=== PATIENT | female | born 1965 | race Caucasian/White ===

== ENCOUNTER 2021-01-14 11:23 | Outpatient (REF) | payer OTHER, SELFPAY ==
[2021-01-14 12:37] LABS: Alanine Aminotransferase 14 U/L (0-31); Albumin Level 4.3 g/dL (3.5-5.0); Alkaline Phosphatase 126 U/L (39-117); Anion Gap 13 (12-20); Aspartate Amino Transferase 16 U/L (5-31); Bilirubin Total 0.5 mg/dL (0.0-1.0); Blood Urea Nitrogen 16 mg/dL (9-16); Calcium 9.3 mg/dL (8.4-10.2); Carbon Dioxide 27 mmol/L (22-29); Chloride 104 mmol/L (96-108); Cholesterol 225 mg/dL; Estimated Glomerular Filt Rate 54; Glucose Fasting 101 mg/dL (60-99); HDL Cholesterol 59 mg/dL; LDL Cholesterol Calculated 125 mg/dl; Potassium 5.3 mmol/L (3.3-5.1); Sodium 139 mmol/L (135-145); Total Protein 7.2 g/dL (6.5-8.0); Triglycerides 205 mg/dL
[2021-01-18 04:47] LABS: Vitamin D 25-OH, D2 <4 ng/mL; Vitamin D 25-OH, D3 39 ng/mL; Vitamin D 25-OH, Total 39 ng/mL (30-100)
== END 2021-01-14 11:24 | disposition home or self-care (01) ==
LOC: HO.LAB 11:23
PROVIDERS: PCP Internal Medicine; Visit Provider Internal Medicine
DX: E55.9 Vitamin D deficiency, unspecified (principal); E78.5 Hyperlipidemia, unspecified; I10 Essential (primary) hypertension; R10.11 Right upper quadrant pain
CPT/HCPCS: 36415; 80053; 80061; 82306

== ENCOUNTER 2021-01-30 09:23 | Outpatient (REF) | payer OTHER, SELFPAY ==
--- NOTE | ~2021-01-30 | US_ITS ---
EXAMINATION: US COMPLETE ABDOMEN WITH LIVER ELASTOGRAPHY CLINICAL INFORMATION: Right upper quadrant pain. COMPARISON: Ultrasound abdomen 01/03/2020. TECHNIQUE: Real-time imaging of the abdominal viscera. Noninvasive ultrasound liver fibrosis assessment is performed using Leigha Elast point quantification shear wave elastography (pSWE) with a C5-2 MHz transducer. Multiple elastography samples are obtained. FINDINGS: PANCREAS: The visualized pancreatic head and body are normal in appearance. The remainder of the pancreas is obscured from visualization by the overlying bowel gas. ABDOMINAL AORTA: The proximal, middle, and distal aortic segments are normal in caliber. INFERIOR VENA CAVA: Visualized portions are normal. LIVER: The liver demonstrates normal size, contour and increased echogenicity. No areas of focal fatty sparing No focal lesion or intrahepatic biliary duct dilatation. There is anechoic cyst cyst left hepatic lobe measuring 7.8 6.2 x 7.4 cm. Previously it measured 7.9 x 6.4 x 7.8 cm. The right lobe measures 17.1 cm in length. The left lobe measures 12.5 cm in length. Portal flow is hepatopedal. Shear wave liver elastography median stiffness is 1.27 m/s (reference: normal median stiffness is 1.3 m/s or less). IQR/median stiffness to assess sampling precision is 0.29 (reference: good quality data set is IQR/median stiffness of 0.15 or less). GALLBLADDER: Normal. The gallbladder is physiologically distended without evidence of stones, sludge, polyps, wall thickening or pericholecystic fluid. COMMON BILE DUCT: Normal in caliber measuring 0.6 cm in diameter. RIGHT KIDNEY: Normal. No hydronephrosis. No renal calculi or focal parenchymal lesions. The kidney measures 11.2 cm in maximum dimension. LEFT KIDNEY: Normal. No hydronephrosis. No renal calculi or focal parenchymal lesions. The kidney measures 10.9 cm in maximum dimension. SPLEEN: Normal. The spleen measures 9.8 cm in maximum dimension. FREE FLUID: None. US/US abdomen comp w elastography IMPRESSION: 1. Diffuse hepatic steatosis with focal fatty sparing. There is a left hepatic lobe 7.8 cm cyst, stable. The rest of the abdominal ultrasound is unremarkable. 2. Liver elastography: 1.27 median stiffness. Normal exam. REFERENCE: Society of Radiologists in Ultrasound Liver Stiffness Thresholds (2019): LIVER STIFFNESS THRESHOLDS: *Liver Stiffness equal or less than 1.3 m/s: High probability of being normal. *Liver Stiffness less than 1.7 m/s: In the absence of other known clinical signs, rules out compensated advanced chronic liver disease. *Liver Stiffness 1.7-2.1 m/s: Suggestive of compensated advanced chronic liver disease but need further test for confirmation. *Liver Stiffness over 2.1 m/s: Rules in compensated advanced chronic liver disease. *Liver Stiffness over 2.4 m/s: Suggestive of clinically significant portal hypertension. QUALITY OF DATA SET: *IQR/Median value equal or less than 0.15 implies a quality data set. *IQR/Median value over 0.15 implies a poor quality data set. SIGNIFICANT CHANGE FROM PRIOR EXAM: Significant change if liver stiffness measurement is 10% or greater from prior exam. OTHER CONSIDERATIONS: The stage of liver fibrosis may be overestimated in the setting of acute hepatitis, liver inflammation, elevated liver function tests, hepatic vascular congestion, obstructive cholestasis, non-fasting state, and infiltrative diseases such as amyloidosis and lymphoma. In some patients with NAFLD, the liver stiffness thresholds for compensated advanced chronic liver disease may be lower. In causes other than viral hepatitis and NAFLD, liver stiffness thresholds are not well established.
[2021-01-30 11:28] LABS: Alanine Aminotransferase 11 U/L (0-31); Albumin Level 4.4 g/dL (3.5-5.0); Alkaline Phosphatase 134 U/L (39-117); Anion Gap 13 (12-20); Aspartate Amino Transferase 15 U/L (5-31); Bilirubin Total 0.5 mg/dL (0.0-1.0); Blood Urea Nitrogen 17 mg/dL (9-16); Calcium 9.8 mg/dL (8.4-10.2); Carbon Dioxide 28 mmol/L (22-29); Chloride 105 mmol/L (96-108); Estimated Glomerular Filt Rate 52; Glucose Random 103 mg/dL (60-115); Potassium 5.7 mmol/L (3.3-5.1); Sodium 140 mmol/L (135-145); Total Protein 7.6 g/dL (6.5-8.0)
== END 2021-01-30 09:24 | disposition home or self-care (01) ==
LOC: HO.US 09:23
PROVIDERS: PCP Internal Medicine; Visit Provider Internal Medicine
DX: R10.11 Right upper quadrant pain (principal); E87.5 Hyperkalemia
CPT/HCPCS: 36415; 76705; 76981; 80053

== ENCOUNTER → 2021-01-31 12:51 | Outpatient (REF) | payer OTHER, SELFPAY ==
--- NOTE | 2021-01-31 12:56 | ECG_ITS ---
Test Reason : HYPERKALEMIA Blood Pressure : / mmHG Vent. Rate : 076 BPM Atrial Rate : 076 BPM P-R Int : 162 ms QRS Dur : 082 ms QT Int : 404 ms P-R-T Axes : 007 044 012 degrees QTc Int : 454 ms Normal sinus rhythm Normal ECG When compared with ECG of 14-MAR-2020 12:28, No significant change was found Referred By: Tasha Varghese Electronically Signed By:EDDIE ALSTON
== END ==
LOC: HO.CARD 12:51
PROVIDERS: PCP Internal Medicine; Visit Provider Internal Medicine
DX: E87.5 Hyperkalemia (principal)
CPT/HCPCS: 93005

== ENCOUNTER 2021-07-14 15:02 | Outpatient (REF) | payer OTHER, SELFPAY | END 2021-07-14 15:03 | disposition home or self-care (01) | LOC: HO.LAB 15:02 | PROVIDERS: PCP Internal Medicine; Visit Provider Internal Medicine | DX: Z20.822 Contact with and (suspected) exposure to COVID-19 (principal) | CPT/HCPCS: C9803; U0003; U0005 ==

== ENCOUNTER 2021-09-27 10:19 | Outpatient (REF) | payer OTHER, SELFPAY ==
[2021-09-27 11:35] LABS: Alanine Aminotransferase 14 U/L (0-31); Albumin Level 4.2 g/dL (3.5-5.0); Alkaline Phosphatase 135 U/L (39-117); Anion Gap 13 (12-20); Aspartate Amino Transferase 17 U/L (5-31); Bilirubin Direct 0.2 mg/dL (0.0-0.5); Bilirubin Total 0.5 mg/dL (0.0-1.0); Blood Urea Nitrogen 20 mg/dL (9-16); Calcium 9.4 mg/dL (8.4-10.2); Carbon Dioxide 26 mmol/L (22-29); Chloride 105 mmol/L (96-108); Estimated Glomerular Filt Rate 50; Glucose Random 153 mg/dL (60-115); Potassium 4.8 mmol/L (3.3-5.1); Sodium 139 mmol/L (135-145); Total Protein 7.2 g/dL (6.5-8.0)
== END 2021-09-27 10:20 | disposition home or self-care (01) ==
LOC: HO.LAB 10:19
PROVIDERS: PCP Internal Medicine; Visit Provider Physician Assistant
DX: E87.5 Hyperkalemia (principal)
CPT/HCPCS: 36415; 80048; 80076

== ENCOUNTER → 2021-09-29 09:50 | Outpatient (BNVA) | payer OTHER, SELFPAY | PROVIDERS: PCP Internal Medicine; Referring Provider Internal Medicine; Visit Provider Internal Medicine Gastroenterology ==

== ENCOUNTER 2021-11-01 09:41 | Emergency (ER) | payer OTHER, SELFPAY ==
--- NOTE | ~2021-11-01 | CT_ITS ---
CT HEAD WITHOUT CONTRAST CLINICAL INFORMATION: Headache. Photophobia. COMPARISON: Head CT 07/17/2012. TECHNIQUE: Contiguous axial imaging was performed from the skull base to vertex without intravenous administration of contrast. This CT examination was performed using dose optimization techniques as appropriate, variously including the following: *Automated exposure control *Adjustment of mA and/or kV according to patient size (this includes techniques or standardized protocols for targeted exams where dose is matched to indication/reason for exam; i.e. extremities or head) *Use of iterative reconstruction technique FINDINGS: Prominent extra-axial spaces within the high frontal vertex unchanged. There is a stable ossification along the inner table of the anterior right frontal convexity that may reflect a small osteoma or meningioma. There is no intracranial hemorrhage, hydrocephalus, extra-axial surface collection, midline shift, or other herniation pattern. Duncan to white matter differentiation is diffusely maintained without evidence of an evolved acute territorial infarct. The basilar cisterns are preserved. No significant soft tissue abnormality. No acute osseous abnormality. The paranasal sinuses and the mastoid air cells are well aerated. CT/CT head/brain wo con IMPRESSION: No acute intracranial abnormality. There is a stable ossification along the inner table of the anterior right frontal convexity that may reflect a small osteoma or meningioma.
[2021-11-01 10:02] VITALS: BP 155/72; PULSE 75; RESP 18; TEMP 36.5; O2SAT 99; BMI 33.3
[2021-11-01 10:23] LABS: COVID-19 Test Negative (Negative); IDNOW Serial# 9DD0AD1C
--- NOTE | 2021-11-01 10:59 | ED_ITS ---
HPI - Nausea/Vomiting/Diarrhea General Chief complaint: Upper Respiratory Symptoms Stated complaint: diarrhea body aches headache sore throat Time Seen by Provider: 11/01/21 10:31 Source: patient Mode of arrival: ambulatory Limitations: no limitations History of Present Illness HPI Narrative: 55-year-old female past medical history significant for anxiety, hypertension and insomnia presenting to the emergency department with complaints of nausea, headache and light sensitivity X4 days. Patient tells me that she decided to come in today because she is worried that she is still very nauseous, and she still has a headache. Patient tells me that she usually does not get headaches, and this is her 1st headache. She describes the pain as constant localized to the posterior aspect of the head with associated photophobia and intermittent dizziness. Patient tells me this is not normal for her. 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 She reports vomiting and diarrhea earlier this week. denies weakness, fevers, chills, vomiting, chest pain, shortness of breath. Patient is not currently dizzy. MD elicited complaint: nausea, diarrhea and other (Headache) Onset (ago): day(s) (4) Description of vomiting: food contents Description of diarrhea: loose Associated nausea: Yes Associated abdominal pain: No Location of pain: none Exacerbating factors: none Relieving factors: none Context: sick contacts Associated symptoms: headaches, malaise and nausea/vomiting Related Data Previous Rx's Medication Instructions Recorded escitalopram oxalate 5 mg tablet 5 mg PO DAILY 30 Days #30 tab 11/04/20 atenolol 25 mg tablet 25 mg PO BID 90 Days #180 tab 01/01/21 amitriptyline 25 mg tablet 25 mg PO DAILY 90 Days #90 tab 09/17/21 blood pressure test kit-large #1 ea 09/18/21 ondansetron 4 mg disintegrating 4 mg PO ONCE PRN #10 tab 11/01/21 tablet Allergies Allergy/AdvReac Type Severity Reaction Status Date / Time No Known Allergies Allergy Unknown Verified 11/01/21 10:02 [No Known Allergies*] Review of Systems Review of Systems: Constitutional : No Weight loss, No Fever, No Chills, + Fatigue, + Malaise ENT/Mouth : No sore throat, No Rhinorrhea Eyes: No Eye Pain, No Swelling, No Redness Cardiovascular : No Chest Pain, No SOB, No Dyspnea on Exertion, No Orthopnea, No Edema, No Palpitations Respiratory : No Cough, No Sputum, No Wheezing Gastrointestinal : + Nausea, No Vomiting, + Diarrhea, No Constipation, No abdominal Pain, No Hematochezia, No Melena Genitourinary : No Dysuria, No Urinary Frequency, No Hematuria, Musculoskeletal : No joint pain, No Myalgias, No Joint Swelling Skin : No Skin Lesions, No rash Neuro : No Weakness, No Numbness, No Dizziness, + Headache Psych : No Anxiety/Panic, No Depression All other systems reviewed and are negative Gastrointestinal: Gastrointestinal: Reports nausea PMFSH Past Medical History Attestation statement: The following information was validated with the patient. Source: old records reviewed and nursing notes reviewed Medical History Anxiety Essential hypertension Hyperkalemia Insomnia Liver cyst Right upper quadrant abdominal pain Surgical History No pertinent past surgical history Family History Family History Father No problems noted. Mother High cholesterol Family/Other FH: mental illness Social History Social History Housing: House Alcohol intake: never Patient Tobacco Use Status: Never used Tobacco Tobacco use type: Cigarette e-Cigarette/Vaping Use: Never Used Second Hand Smoke Exposure: No Use of substances other than those prescribed or required for medical reasons: No Advance Directives: No Advance Directives Information Provided: Yes Patient : No Current occupational status: employed Physical Exam Vital Signs: Vital Signs: Last Vital Signs Temp 97.7 F 11/01/21 10:02 Pulse 75 11/01/21 10:02 Resp 18 11/01/21 10:02 BP 155/72 H 11/01/21 10:02 Pulse Ox 99 11/01/21 10:02 BMI result Body Mass Index 33.3 VSS Appearance: Alert.? Oriented X3.? No acute distress.? Head: Normocephalic, atraumatic, no step-offs or deformities Eyes: Pupils equal, round and reactive to light.? ENT: Pharynx normal.? Neck: Normal inspection.? Neck supple.? CVS: Normal heart rate and rhythm.? Pulses normal.? Respiratory: No respiratory distress.? Breath sounds normal.? Abdomen: Soft and nontender.? Skin: Skin warm and dry.? Normal skin color.? Normal skin turgor.? Extremities: No lower extremity edema.? No calf ttp. 5/5 strength to bilateral upper and lower extremities Back: No midline tenderness, no C-spine tenderness, full range of motion, no CVA tenderness bilaterally Neuro: Oriented X 3.? No motor deficit.? No sensory deficit. 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 Patient ambulating with a steady gait. Course Reevaluation(s) Reevaluation #1: No leukocytosis, no anemia. No evident electrolyte abnormalities. Patient is COVID negative. CT of the head shows no acute intra cranial abnormalities. It shows a stable ossification along the inner table of the anterior right frontal convexity that could reflect a small osteoma or meningioma. I have provided patient a copy of the CT reading. I have advised her to follow-up with her primary care provider. Patient is safe for discharge home this is likely viral gastroenteritis, with a headache. Comfortable with discharge home Time: 12:47 MDM - Nausea/Vomiting/Diarrhea MDM Narrative Medical decision making narrative: 1100 55 yo F pmhx HTN, anxiety and insomnia presents to ED with complaints of nausea, posterior headache w/ photophobia X4 days. Patient also reports recent COVID contacts and wanted to get COVID tested. Patient's main concern today is the headache that has not gone away, as she never gets headaches. Upon physical examination patient appears well, no acute distress, she reports some discomfort with the lights. S1-S2 appreciated free of murmurs. Lungs are clear. Abdomen soft nontender nondistended. Pupils equal round and reactive to light, extraocular movements intact. No focal neuro deficits. normal [id number], [id number], and normal gait noted. At this time posterior stroke is unlikely, as patient has a normal neuro exam. Patient is not currently dizzy however she describes her dizziness as the room spinning which is likely intermittent vertigo. Patient's symptoms are likely viral gastroenteritis. However I will rule out electrolyte abnormalities, infection, and ICH however unlikely. Medical Records Attestation: I reviewed the patient's medical records. Lab Data Attestation: I reviewed the patient's lab results. Result diagrams: 11/01/21 11:23 11/01/21 11:23 Labs: Lab Results 11/01/21 11/01/21 11/01/21 Range/Units 09:57 11:17 11:23 WBC 6.7 (4.8-10.8) X10*3/uL RBC 4.74 (4.20-5.50) X10*6/uL Hgb 14.6 (12.0-16.0) g/dl Hct 43.3 (37.0-47.0) % MCV 91.4 (80.0-98.0) fL MCH 30.8 (27.0-33.0) pg MCHC 33.7 (31.0-35.0) g/dl RDW 13.4 (11.0-16.0) % Plt Count 243 (160-400) X10*3/uL MPV 10.3 (9.4-12.3) fL Immature Gran % (Auto) 0.1 (0.0-0.4) % Neut % (Auto) 56.2 (45-73) % Lymph % (Auto) 33.2 (20-40) % Gosper % (Auto) 7.9 (2-11) % Eos % (Auto) 1.9 (0-4) % Baso % (Auto) 0.7 (0-2) % Lymph # (Auto) 2.2 (1.2-4.9) X10*3/uL Gosper # (Auto) 0.5 (0.1-1.2) X10*3/uL Eos # (Auto) 0.1 (0.0-0.4) X10*3/uL Baso # (Auto) 0.1 (0.0-0.2) X10*3/uL Abs Immat Gran (auto) 0.01 (0.00-0.03) X10*3/uL Absolute Neuts (auto) 3.8 (2.0-8.3) x10*3/uL Absolute Nucleated RBC 0.000 (0.0-0.012) X10*3/uL Nucleated RBC % (auto) 0.0 (0.0-0.2) /100WBC Sodium (135-145) mmol/L Potassium (3.3-5.1) mmol/L Chloride (96-108) mmol/L Carbon Dioxide (22-29) mmol/L Anion Gap (12-20) BUN (9-16) mg/dL Creatinine (0.5-1.4) mg/dL Estim Creat Clear Calc Estimated GFR Random Glucose (60-115) mg/dL Calcium (8.4-10.2) mg/dL Urine Test NEGATIVE (NEGATIVE) COVID-19 (LEIGH) Negative (Negative) COVID-19 Clin Com See Note 11/01/21 Range/Units 11:23 WBC (4.8-10.8) X10*3/uL RBC (4.20-5.50) X10*6/uL Hgb (12.0-16.0) g/dl Hct (37.0-47.0) % MCV (80.0-98.0) fL MCH (27.0-33.0) pg MCHC (31.0-35.0) g/dl RDW (11.0-16.0) % Plt Count (160-400) X10*3/uL MPV (9.4-12.3) fL Immature Gran % (Auto) (0.0-0.4) % Neut % (Auto) (45-73) % Lymph % (Auto) (20-40) % Gosper % (Auto) (2-11) % Eos % (Auto) (0-4) % Baso % (Auto) (0-2) % Lymph # (Auto) (1.2-4.9) X10*3/uL Gosper # (Auto) (0.1-1.2) X10*3/uL Eos # (Auto) (0.0-0.4) X10*3/uL Baso # (Auto) (0.0-0.2) X10*3/uL Abs Immat Gran (auto) (0.00-0.03) X10*3/uL Absolute Neuts (auto) (2.0-8.3) x10*3/uL Absolute Nucleated RBC (0.0-0.012) X10*3/uL Nucleated RBC % (auto) (0.0-0.2) /100WBC Sodium 138 (135-145) mmol/L Potassium 4.5 (3.3-5.1) mmol/L Chloride 104 (96-108) mmol/L Carbon Dioxide 27 (22-29) mmol/L Anion Gap 12 (12-20) BUN 18 H (9-16) mg/dL Creatinine 0.93 (0.5-1.4) mg/dL Estim Creat Clear Calc 76.9 Estimated GFR > 60 Random Glucose 95 (60-115) mg/dL Calcium 9.9 (8.4-10.2) mg/dL Urine Test (NEGATIVE) COVID-19 (LEIGH) (Negative) COVID-19 Clin Com Imaging Data CT scan - head: Attestation: I personally reviewed and interpreted this imaging study as follows: Radiologist's impression: FINDINGS: Prominent extra-axial spaces within the high frontal vertex unchanged. There is a stable ossification along the inner table of the anterior right frontal convexity that may reflect a small osteoma or meningioma. There is no intracranial hemorrhage, hydrocephalus, extra-axial surface collection, midline shift, or other herniation pattern. Duncan to white matter differentiation is diffusely maintained without evidence of an evolved acute territorial infarct. The basilar cisterns are preserved. No significant soft tissue abnormality. No acute osseous abnormality. The paranasal sinuses and the mastoid air cells are well aerated. CT/CT head/brain wo con IMPRESSION: No acute intracranial abnormality. There is a stable ossification along the inner table of the anterior right frontal convexity that may reflect a small osteoma or meningioma. Critical Care Time Critical Care Time Critical Care Time: No Discharge Plan Discharge Clinical Impression: Gastroenteritis, Nausea & vomiting, Headache Patient Disposition: Home, Self-Care Instructions: Gastroenteritis (ED), Acute Headache (ED), Acute Nausea and Vomiting (ED), Acute Diarrhea (ED) Additional Instructions: Take your medications as prescribed. If you are going to take Reglan ensure you are taking it with Benadryl. You tested negative for COVID-19 today ( 11/01/2021) Your CT scan looked good without signs of bleed or stroke. It did show a stable ossification that could reflect a small osteoma or meningioma I recommend you follow up with your PCP Drink pleanty of fluids Follow-up with your primary care provider this week. Return to the emergency department with new or worsening symptoms. In case of emergency call 911 Prescriptions: New ondansetron 4 mg tablet,disintegrating 4 mg PO ONCE PRN (Reason: nausea and vomiting) Qty: 10 RF: 0 No Action escitalopram oxalate 5 mg tablet 5 mg PO DAILY 30 Days Qty: 30 RF: 11 amitriptyline 25 mg tablet 25 mg PO DAILY 90 Days Qty: 90 RF: 3 atenolol 25 mg tablet 25 mg PO BID 90 Days Qty: 180 RF: 3 (DME) blood pressure test kit-large Kit See Rx Instructions .Route Qty: 1 RF: 0 Referrals: Tasha Harris MD [Primary Care Provider] - 2 days Stand Alone Forms: Work/School Release
[2021-11-01 11:28] LABS: MANUAL DIFF FLAG NO
[2021-11-01 11:41] LABS: Basophils Absolute Auto 0.1 X10*3/uL (0.0-0.2); Basophils Percent Auto 0.7 % (0-2); Eosinophils Absolute Auto 0.1 X10*3/uL (0.0-0.4); Eosinophils Percent Auto 1.9 % (0-4); Hematocrit 43.3 % (37.0-47.0); Hemoglobin 14.6 g/dl (12.0-16.0); Imm Gran Abs Auto 0.01 X10*3/uL (0.00-0.03); Imm Gran Pct Auto 0.1 % (0.0-0.4); Lymphocytes Absolute Auto 2.2 X10*3/uL (1.2-4.9); Lymphocytes Percent Auto 33.2 % (20-40); Mean Corpuscular HGB Conc 33.7 g/dl (31.0-35.0); Mean Corpuscular Hemoglobin 30.8 pg (27.0-33.0); Mean Corpuscular Volume 91.4 fL (80.0-98.0); Mean Platelet Volume 10.3 fL (9.4-12.3); Monocytes Absolute Auto 0.5 X10*3/uL (0.1-1.2); Monocytes Percent Auto 7.9 % (2-11); Neutrophils Absolute Auto 3.8 x10*3/uL (2.0-8.3); Neutrophils Percent Auto 56.2 % (45-73); Platelet Count 243 X10*3/uL (160-400); Red Blood Count 4.74 X10*6/uL (4.20-5.50); Red Cell Distribution Width 13.4 % (11.0-16.0); White Blood Count 6.7 X10*3/uL (4.8-10.8)
[2021-11-01 11:53] LABS: UPreg QC Valid YES; Urine Pregnancy NEGATIVE (NEGATIVE)
[2021-11-01 12:03] LABS: Anion Gap 12 (12-20); Blood Urea Nitrogen 18 mg/dL (9-16); Calcium 9.9 mg/dL (8.4-10.2); Carbon Dioxide 27 mmol/L (22-29); Chloride 104 mmol/L (96-108); Creatinine Clr Calc Pharmacy 76.9; Estimated Glomerular Filt Rate > 60; Glucose Random 95 mg/dL (60-115); Potassium 4.5 mmol/L (3.3-5.1); Sodium 138 mmol/L (135-145)
[2021-11-01] MEDS: Ondansetron ODT 4 MG TAB.RAPDIS TRANSLINGU (12:13)
[2021-11-01] MEDS: Acetaminophen 325 MG TABLET 650 MG PO (12:14)
[2021-11-01 13:00] VITALS: BP 136/69; PULSE 65; RESP 18; O2SAT 98
== END 2021-11-01 13:03 | disposition home or self-care (01) ==
PROVIDERS: Physician Assistant; Emergency Provider Emergency Medicine; PCP Internal Medicine
DX: K52.9 Noninfective gastroenteritis and colitis, unspecified (principal); Z20.822 Contact with and (suspected) exposure to COVID-19; R11.2 Nausea with vomiting, unspecified; R51.9 Headache, unspecified
CPT/HCPCS: 36415; 70450; 80048; 81025; 85025; 87635; 99284

== ENCOUNTER 2021-12-04 11:15 | Outpatient (REF) | payer OTHER, SELFPAY ==
--- NOTE | ~2021-12-04 | MR_ITS ---
EXAMINATION: MR BRAIN WITHOUT AND WITH CONTRAST CLINICAL INFORMATION: Headache. Photophobia. Lesion on head CT. COMPARISON: CT head from 11/01/2021. TECHNIQUE: MRI of the brain was obtained using routine sequences without and following the administration of 10 mL of Gadavist intravenous contrast. FINDINGS: No focal restricted diffusion is demonstrated to suggest acute or subacute cerebral ischemia. No evidence of acute hemorrhagic products on heme-sensitive imaging. Punctate focus of susceptibility artifact in the lateral aspect of the right parietal lobe consistent with petechial microhemorrhage. Normal parenchymal signal characteristics. The ventricles are normal in morphology and size. No abnormal mass effect. No midline shift. Normal appearance of the pituitary gland. The suprasellar cistern remains widely patent. Normal positioning of the cerebellar tonsils. Normal arterial and venous vascular flow voids are present. No enhancement associated with the calcified 1 cm lesion along the right anterior vertex. No abnormal contrast enhancement. Normal, homogeneous marrow signal. Mild to moderate mucosal thickening of the paranasal sinuses. Moderate rightward nasal septal deviation. No signal abnormalities within the mastoids. No demonstrated abnormalities of the orbits on limited evaluation. MR/MR head/brain wo/w con IMPRESSION: 1. No acute intracranial abnormalities. No abnormal intracranial enhancement. 2. A chronic 1 cm calcified lesion along the right anterior vertex demonstrates no enhancement on this exam.
== END 2021-12-04 11:16 | disposition home or self-care (01) ==
LOC: HO.MRI 11:15
PROVIDERS: PCP Internal Medicine; Visit Provider Internal Medicine
DX: G93.9 Disorder of brain, unspecified (principal); R90.89 Other abnormal findings on diagnostic imaging of central nervous system
CPT/HCPCS: 70553; A9585

== ENCOUNTER 2022-04-28 09:05 | Outpatient (REF) | payer OTHER, SELFPAY ==
[2022-04-28 10:04] LABS: Hematocrit 43.9 % (37.0-47.0); Hemoglobin 14.7 g/dl (12.0-16.0); Mean Corpuscular HGB Conc 33.5 g/dl (31.0-35.0); Mean Corpuscular Hemoglobin 30.4 pg (27.0-33.0); Mean Corpuscular Volume 90.7 fL (80.0-98.0); Mean Platelet Volume 10.1 fL (9.4-12.3); Platelet Count 220 X10*3/uL (160-400); Red Blood Count 4.84 X10*6/uL (4.20-5.50); Red Cell Distribution Width 13.7 % (11.0-16.0); White Blood Count 5.8 X10*3/uL (4.8-10.8)
[2022-04-28 10:14] LABS: INTERNATIONAL NORM RATIO 0.9 (0.9-1.1); Prothrombin Time 10.4 SEC (9.9-13.0)
[2022-04-28 10:59] LABS: Alanine Aminotransferase 18 U/L (0-31); Albumin Level 4.2 g/dL (3.5-5.0); Alkaline Phosphatase 119 U/L (39-117); Anion Gap 14 (12-20); Aspartate Amino Transferase 21 U/L (5-31); Bilirubin Direct 0.3 mg/dL (0.0-0.5); Bilirubin Total 0.9 mg/dL (0.0-1.0); Blood Urea Nitrogen 20 mg/dL (9-16); Calcium 9.9 mg/dL (8.4-10.2); Carbon Dioxide 25 mmol/L (22-29); Chloride 105 mmol/L (96-108); Cholesterol 219 mg/dL; Estimated Glomerular Filt Rate 55; Gamma Glutamyl Transpeptidase 26 U/L (7-33); Glucose Fasting 109 mg/dL (60-99); HDL Cholesterol 65 mg/dL; LDL Cholesterol Calculated 122 mg/dl; Potassium 4.7 mmol/L (3.3-5.1); Sodium 139 mmol/L (135-145); Total Protein 7.2 g/dL (6.5-8.0); Triglycerides 162 mg/dL
[2022-05-03 22:02] LABS: Alk.Phos Iso. Macrohepatic 0 % (<=0); Alk.Phos Isoenzymes Bone 31 % (28-66); Alk.Phos Isoenzymes Intest 16 % (1-24); Alk.Phos Isoenzymes Liver 53 % (25-69); Alk.Phos Isoenzymes Placental 0 % (<=0); Alk.Phos Isoenzymes Total 108 U/L (37-153)
[2022-05-05 07:46] LABS: Mitochondrial Antibodies NEGATIVE (NEGATIVE)
== END 2022-04-28 09:06 | disposition home or self-care (01) ==
LOC: HO.LAB 09:05
PROVIDERS: Internal Medicine Gastroenterology; PCP Internal Medicine; Visit Provider Internal Medicine
DX: R79.89 Other specified abnormal findings of blood chemistry (principal); I10 Essential (primary) hypertension; E78.5 Hyperlipidemia, unspecified
CPT/HCPCS: 36415; 80053; 80061; 80076; 82248; 82977; 84080; 85027; 85610; 86255; 86256

== ENCOUNTER 2022-05-01 16:11 | Emergency (ER) | payer OTHER, SELFPAY ==
--- NOTE | ~2022-05-01 | US_ITS ---
EXAMINATION: US VENOUS ULTRASOUND WITH DOPPLER LOWER EXTREMITY, LEFT CLINICAL INFORMATION: Left lower extremity pain. COMPARISON: None TECHNIQUE: Ultrasound of the deep veins is performed from the hip to the calf with compression sonography and color and pulse Doppler assessment. Spectral analysis with color-flow imaging is performed. FINDINGS: There is normal venous compression and respiratory variation and augmented flow. The visualized common femoral vein, superficial femoral vein, profunda femoral vein, popliteal vein, and the trifurcation region shows no evidence of deep venous thrombosis. There is no significant popliteal fossa cyst. If the patient's symptoms persist, followup ultrasound in 5 days 7 days might be of value to exclude proximal propagation from a non-visualized calf vein. US/US venous duplex LE LT IMPRESSION: No DVT demonstrated in the left lower extremity.
[2022-05-01 16:15] VITALS: BP 140/70; PULSE 94; RESP 15; TEMP 36.1; O2SAT 96; BMI 35.2
[2022-05-01 16:26] LABS: MANUAL DIFF FLAG NO
[2022-05-01 16:27] LABS: Basophils Percent Auto 0.3 % (0-2); Eosinophils Absolute Auto 0.1 X10*3/uL (0.0-0.4); Eosinophils Percent Auto 1.2 % (0-4); Hematocrit 39.4 % (37.0-47.0); Hemoglobin 13.4 g/dl (12.0-16.0); Imm Gran Abs Auto 0.03 X10*3/uL (0.00-0.03); Imm Gran Pct Auto 0.3 % (0.0-0.4); Lymphocytes Absolute Auto 2.9 X10*3/uL (1.2-4.9); Mean Corpuscular Hemoglobin 30.7 pg (27.0-33.0); Mean Corpuscular Volume 90.4 fL (80.0-98.0); Mean Platelet Volume 9.9 fL (9.4-12.3); Monocytes Absolute Auto 0.6 X10*3/uL (0.1-1.2); Monocytes Percent Auto 6.4 % (2-11); Neutrophils Absolute Auto 5.3 x10*3/uL (2.0-8.3); Neutrophils Percent Auto 59.8 % (45-73); Platelet Count 235 X10*3/uL (160-400); Red Blood Count 4.36 X10*6/uL (4.20-5.50); Red Cell Distribution Width 13.7 % (11.0-16.0); White Blood Count 8.9 X10*3/uL (4.8-10.8)
[2022-05-01 16:53] LABS: Alanine Aminotransferase 18 U/L (0-31); Albumin Level 4.2 g/dL (3.5-5.0); Alkaline Phosphatase 138 U/L (39-117); Anion Gap 14 (12-20); Aspartate Amino Transferase 17 U/L (5-31); Bilirubin Total 0.5 mg/dL (0.0-1.0); Blood Urea Nitrogen 17 mg/dL (9-16); Calcium 9.7 mg/dL (8.4-10.2); Carbon Dioxide 25 mmol/L (22-29); Chloride 104 mmol/L (96-108); Creatinine Clr Calc Pharmacy 66.2; Estimated Glomerular Filt Rate 52; Glucose Random 98 mg/dL (60-115); Potassium 4.6 mmol/L (3.3-5.1); Sodium 138 mmol/L (135-145); Total Protein 7.2 g/dL (6.5-8.0)
--- NOTE | 2022-05-01 16:58 | ED_ITS ---
HPI - Extremity Injury (Lower) General Chief Complaint: Extremity Injury, Lower Stated Complaint: Blood clot? Time Seen by Provider: 05/01/22 16:22 Source: patient Mode of arrival: ambulatory Limitations: no limitations History of Present Illness HPI Narrative: 56-year-old female history of DVT presents to the emergency department with a sore left foot and sore left calf. Patient tells me that this has been going on for a week. She tells me she noticed this after she got of the car from work about a week ago. Denies long travel, not on anticoagulation, not on control or hormone replacement, patient does not smoke. Patient tells me that her previous DVT felt just like this 1 and was also in the left lower extremity. She denies shortness of breath, chest pain, fevers, chills, nausea, vomiting, abdominal pain, weakness, headache, dizziness. She has no known hypercoagulable disorders. Onset (ago): week(s) (1) Severity: mild Relieving factors: nothing Exacerbating factors: nothing Other symptoms: none Related Data Previous Rx's Medication Instructions Recorded blood pressure test kit-large #1 ea 09/18/21 amitriptyline 25 mg tablet 25 mg PO DAILY 90 Days #90 tab 11/28/21 atenolol 25 mg tablet 25 mg PO BID 90 Days #180 tab 02/11/22 doxycycline hyclate 100 mg tablet 100 mg PO BID 30 Days #60 tab 04/06/22 escitalopram oxalate 10 mg tablet 10 mg PO DAILY 90 Days #90 tab 04/06/22 Allergies Allergy/AdvReac Type Severity Reaction Status Date / Time No Known Allergies Allergy Unknown Verified 04/06/22 17:01 [No Known Allergies*] Review of Systems Review of Systems: Constitutional : No Weight loss, No Fever, No Chills, No Fatigue, No Malaise ENT/Mouth : No sore throat, No Rhinorrhea Eyes: No Eye Pain, No Swelling, No Redness Cardiovascular : No Chest Pain, No SOB, No Dyspnea on Exertion, No Orthopnea, No Edema, No Palpitations Respiratory : No Cough, No Sputum, No Wheezing Gastrointestinal : No Nausea, No Vomiting, No Diarrhea, No Constipation, No abdominal Pain, No Hematochezia, No Melena Genitourinary : No Dysuria, No Urinary Frequency, No Hematuria, Musculoskeletal : No joint pain, No Myalgias, No Joint Swelling, + leg pain left Skin : No Skin Lesions, No rash Neuro : No Weakness, No Numbness, No Dizziness, No Headache Psych : No Anxiety/Panic, No Depression All other systems reviewed and are negative Yes all other systems are reviewed and are negative [facility] Past Medical History Attestation statement: The following information was validated with the patient. Source: old records reviewed and nursing notes reviewed Medical History Abnormal brain MRI Acne vulgaris Anxiety Brain lesion Essential hypertension Hyperkalemia Insomnia Liver cyst Mild recurrent major depression Mixed hyperlipidemia Obesity (BMI 35.0-39.9 without comorbidity) Right upper quadrant abdominal pain Skin lesion Surgical History No pertinent past surgical history Family History Family History Father No problems noted. Mother High cholesterol Family/Other FH: mental illness Social History Social History Housing: House Alcohol intake: current Alcohol intake frequency: a few times a month Alcohol type: hard liquor Patient Tobacco Use Status: Never used Tobacco e-Cigarette/Vaping Use: Never Used Second Hand Smoke Exposure: No Advance Directives: No Advance Directives Information Provided: No service: No Current occupational status: employed Cognitive needs: No Hearing needs: No Vision needs: Yes Physical Exam Vital Signs: Vital Signs: Last Vital Signs Temp 97.0 F 05/01/22 16:15 Pulse 94 05/01/22 16:15 Resp 15 05/01/22 16:15 BP 140/70 H 05/01/22 16:15 Pulse Ox 96 05/01/22 16:15 BMI result Body Mass Index 35.2 VSS Appearance: Alert.? Oriented X3.? No acute distress.? Head: Normocephalic, atraumatic, no step-offs or deformities Eyes: Pupils equal, round and reactive to light.? ENT: Pharynx normal.? Neck: Normal inspection.? Neck supple.? CVS: Normal heart rate and rhythm.? Pulses normal.? Respiratory: No respiratory distress.? Breath sounds normal.? Abdomen: Soft and nontender.? Skin: Skin warm and dry.? Normal skin color.? Normal skin turgor.? Extremities: No lower extremity edema.? + calf ttp on left + gerry on left negative on right. 5/5 strength to bilateral upper and lower extremities Back: No midline tenderness, no C-spine tenderness, full range of motion, no CVA tenderness bilaterally Neuro: Oriented X 3.? No motor deficit.? No sensory deficit. CN 2-12 intact Course Reevaluation(s) Reevaluation #1: CBC within normal limits. Chemistry with no acute electrolyte abnormalities requiring intervention. Venous duplex of the left lower extremity with no acute findings. Plan at this time is to discharge patient home with strict return precautions. Advised patient that her DVT study today was negative however if symptoms persist she should follow-up with an ultrasound in 5-7 days. Again she tells me that she is not having chest pain or shortness of breath. For this reason very low suspicion for PE, patient has stable vital signs no tachypnea, hypoxia or tachycardia. At this time I feel comfortable discharge home with prompt PCP follow-up and follow-up ultrasound as needed. Time: 17:58 MDM - Extremity Injury (Lower) MDM Narrative Medical decision making narrative: 1700 56-year-old female presents with a left lower extremity pain history of DVT not on anticoagulation. Physical exam significant for calf tenderness to palpation on the left, positive Homans sign on left, negative on the right. 2+ dorsalis pedis, posterior tibialis and popliteal pulses equal bilateral. Sensory and motor intact. No lower extremity edema noted. Wells Score- 2 Moderate risk for DVT. Plan at this time is to rule out DVT. Will order at ultrasound venous duplex of the lower extremity left. Medical Records Attestation: I reviewed the patient's medical records. Lab Data Attestation: I reviewed the patient's lab results. Result diagrams: 05/01/22 16:21 05/01/22 16:21 Labs: Lab Results 05/01/22 05/01/22 Range/Units 16:21 16:21 WBC 8.9 (4.8-10.8) X10*3/uL RBC 4.36 (4.20-5.50) X10*6/uL Hgb 13.4 (12.0-16.0) g/dl Hct 39.4 (37.0-47.0) % MCV 90.4 (80.0-98.0) fL MCH 30.7 (27.0-33.0) pg MCHC 34.0 (31.0-35.0) g/dl RDW 13.7 (11.0-16.0) % Plt Count 235 (160-400) X10*3/uL MPV 9.9 (9.4-12.3) fL Immature Gran % (Auto) 0.3 (0.0-0.4) % Neut % (Auto) 59.8 (45-73) % Lymph % (Auto) 32.0 (20-40) % Kings % (Auto) 6.4 (2-11) % Eos % (Auto) 1.2 (0-4) % Baso % (Auto) 0.3 (0-2) % Lymph # (Auto) 2.9 (1.2-4.9) X10*3/uL Kings # (Auto) 0.6 (0.1-1.2) X10*3/uL Eos # (Auto) 0.1 (0.0-0.4) X10*3/uL Baso # (Auto) 0.0 (0.0-0.2) X10*3/uL Abs Immat Gran (auto) 0.03 (0.00-0.03) X10*3/uL Absolute Neuts (auto) 5.3 (2.0-8.3) x10*3/uL Absolute Nucleated RBC 0.000 (0.0-0.012) X10*3/uL Nucleated RBC % (auto) 0.0 (0.0-0.2) /100WBC Sodium 138 (135-145) mmol/L Potassium 4.6 (3.3-5.1) mmol/L Chloride 104 (96-108) mmol/L Carbon Dioxide 25 (22-29) mmol/L Anion Gap 14 (12-20) BUN 17 H (9-16) mg/dL Creatinine 1.10 (0.5-1.4) mg/dL Estim Creat Clear Calc 66.2 Estimated GFR 52 Random Glucose 98 (60-115) mg/dL Calcium 9.7 (8.4-10.2) mg/dL Total Bilirubin 0.5 (0.0-1.0) mg/dL AST 17 (5-31) U/L ALT 18 (0-31) U/L Alkaline Phosphatase 138 H (39-117) U/L Total Protein 7.2 (6.5-8.0) g/dL Albumin 4.2 (3.5-5.0) g/dL Critical Care Time Critical Care Time Critical Care Time: No Discharge Plan Discharge Clinical Impression: Pain of left calf Patient Disposition: Home, Self-Care Instructions: Leg Cramps (ED), Leg Pain (ED) Additional Instructions: Take your medications as prescribed. If you were prescribed antibiotics today, it is important that you take your medication to their entirety, do not skip any doses, do not finish them early. Follow-up with your primary care provider this week. Return to the emergency department with new or worsening symptoms. Such as fevers, chills, chest pain, shortness of breath, nausea, vomiting, dizziness, headache, vision changes, lethargy In case of emergency call 911 Today your DVT study was negative, there is no DVT demonstrated in the left lower extremity. However, if symptoms persist it is recommended that you have a follow-up ultrasound in 5-7 days. Please follow-up with your primary care provider as soon as possible. Prescriptions: No Action amitriptyline 25 mg tablet 25 mg PO DAILY 90 Days Qty: 90 3RF atenolol 25 mg tablet 25 mg PO BID 90 Days Qty: 180 3RF (DME) blood pressure test kit-large Kit See Rx Instructions .Route Qty: 1 0RF Rx Instructions: As directed escitalopram oxalate 10 mg tablet 10 mg PO DAILY 90 Days Qty: 90 1RF doxycycline hyclate 100 mg tablet 100 mg PO BID 30 Days Qty: 60 0RF Referrals: Tasha Harris MD [Primary Care Provider] - 2 days Stand Alone Forms: Work/School Release Interventions: ED Discharge Assessment Last Done: 05/01/22 18:23 Discharge Date/Time: 05/01/22 18:23
== END 2022-05-01 18:23 | disposition home or self-care (01) ==
PROVIDERS: Emergency Provider Internal Medicine; PCP Internal Medicine
DX: M79.662 Pain in left lower leg (principal); I10 Essential (primary) hypertension; Z86.718 Personal history of other venous thrombosis and embolism
CPT/HCPCS: 36415; 80053; 85025; 93971; 99284

== ENCOUNTER 2022-07-07 11:11 | Outpatient (REF) | payer OTHER, SELFPAY ==
[2022-07-07 14:17] LABS: Alanine Aminotransferase 18 U/L (0-31); Albumin Level 4.5 g/dL (3.5-5.0); Alkaline Phosphatase 130 U/L (39-117); Anion Gap 16 (12-20); Aspartate Amino Transferase 22 U/L (5-31); Bilirubin Total 0.8 mg/dL (0.0-1.0); Blood Urea Nitrogen 15 mg/dL (9-16); Calcium 9.5 mg/dL (8.4-10.2); Carbon Dioxide 22 mmol/L (22-29); Chloride 106 mmol/L (96-108); Cholesterol 265 mg/dL; Estimated Glomerular Filt Rate 60; Glucose Fasting 113 mg/dL (60-99); HDL Cholesterol 53 mg/dL; LDL Cholesterol Calculated 179 mg/dl; Potassium 4.1 mmol/L (3.3-5.1); Sodium 140 mmol/L (135-145); Total Protein 7.5 g/dL (6.5-8.0); Triglycerides 169 mg/dL
== END 2022-07-07 11:12 | disposition home or self-care (01) ==
LOC: HO.10HDL 11:11
PROVIDERS: Visit Provider Internal Medicine
DX: Z00.00 Encounter for general adult medical examination without abnormal findings (principal)
CPT/HCPCS: 36415; 80053; 80061

== ENCOUNTER 2022-09-07 01:52 | Emergency (ER) | payer OTHER, SELFPAY ==
[2022-09-07 03:28] VITALS: BP 170/76; PULSE 75; RESP 20; TEMP 36.7; O2SAT 99; BMI 33.3
[2022-09-07 05:22] LABS: COVID-19 Test Negative (Negative)
[2022-09-07 06:30] VITALS: BP 140/78; PULSE 79; RESP 16; O2SAT 99
--- NOTE | 2022-09-07 07:04 | ED.GENADULT ---
HPI - General Adult General Chief complaint: Headache Stated complaint: migraine, stomach pain, n/v Time Seen by Provider: 09/07/22 06:36 Source: patient Mode of arrival: ambulatory History of Present Illness HPI narrative: 56-year-old female who presents with complaints of nausea and epigastric discomfort, she states that she has been drinking alcohol recently over the weekend. Otherwise, she denies any fever chills or urinary pain/ burning / frequency. She denies any sore throat or ear pain but has a headache. Related Data Previous Rx's Medication Instructions Recorded blood pressure test kit-large #1 ea 09/18/21 amitriptyline 25 mg tablet 25 mg PO DAILY 90 days #90 tabs 11/28/21 atenolol 25 mg tablet 25 mg PO BID 90 days #180 tabs 02/11/22 escitalopram oxalate 10 mg tablet 10 mg PO DAILY 90 days #90 tabs 04/06/22 ondansetron 4 mg disintegrating 4 mg PO Q8H PRN nausea and 09/07/22 tablet vomiting #7 tabs Allergies Allergy/AdvReac Type Severity Reaction Status Date / Time No Known Allergies Allergy Unknown Verified 06/24/22 17:36 [No Known Allergies*] Review of Systems Review of Systems: Pertinent positives and negatives as stated in HPI 10 point review of systems is otherwise negative. [facility] Past Medical History Source: nursing notes reviewed Medical History Abnormal brain MRI Acne vulgaris Anxiety Brain lesion Essential hypertension Hyperkalemia Insomnia Liver cyst Mild recurrent major depression Mixed hyperlipidemia Obesity (BMI 35.0-39.9 without comorbidity) Right upper quadrant abdominal pain Skin lesion Surgical History No pertinent past surgical history Family History Family History Father No problems noted. Mother High cholesterol Family/Other FH: mental illness Social History Social History Housing: House Alcohol intake: current Alcohol intake frequency: a few times a month Alcohol type: hard liquor Patient Tobacco Use Status: Never used Tobacco e-Cigarette/Vaping Use: Never Used Second Hand Smoke Exposure: No Advance Directives: No Advance Directives Information Provided: No service: No Current occupational status: employed Cognitive needs: No Hearing needs: No Vision needs: Yes Physical Exam ED Vital Signs: Vital Signs - 24 hr 09/07/22 03:28 09/07/22 06:30 Temperature 98.1 F Pulse Rate 75 79 Respiratory Rate 20 16 Blood Pressure 170/76 H 140/78 H Pulse Oximetry 99 99 Oxygen Delivery Method Room Air Room Air BMI result Body Mass Index 33.3 VITAL SIGNS: Reviewed. GENERAL: Well developed, well nourished, in no acute distress. HEAD: Normocephalic/atraumatic EYES: PERRLA, EOMI EARS: Ext canals without abnormality, TMs non-bulging and non-erythematous NOSE: Nares patent bilateral OROPHARYNX: no oral lesions noted, posterior pharynx clear and non-erythematous without noted tonsillar enlargement/erythema/exudates NECK: Supple, no adenopathy LUNGS: Normal breath sounds. No adventitious sounds or accessory muscle use. SpO2<99> CARDIOVASCULAR: Regular rate and rhythm without noted murmurs ABDOMEN: Soft, non-tender, non-distended with bowel sounds. MUSCULOSKELETAL: No tenderness, deformities, or effusions noted on gross inspection. EXTREMITIES: No cyanosis, clubbing or edema. SKIN: Inspection of the skin reveals no rashes NEUROLOGIC: Alert and oriented x 4. Strength and sensation to light touch were grossly intact x 4 , no facial asymmetry, no pronator drift, cranial nerves 2-12 grossly intact.. Course Course Course Narrative: 56-year-old female with history and clinical presentation most consistent with likely alcohol gastritis with component of very very mild dehydration and likely headache is secondary to that. Patient is otherwise neurologically intact. COVID testing was negative and no evidence of cardiopulmonary etiology and patient has no complaints of abdominal discomfort. Patient received antiemetic, GI cocktail, as well as combination analgesics and on re-evaluation reports significant improvement in her symptoms. She was encouraged to stick to a bland diet for the rest the day, drink plenty of water, and she was provided with a prescription for antinausea medication. Medical Decision Making Lab Data Labs: Lab Results 09/07/22 Range/Units 04:16 COVID-19 (LEIGH) Negative (Negative) COVID-19 Clin Com See Note Discharge Plan Discharge Clinical Impression: Alcoholic gastritis, Headache Patient Disposition: Home, Self-Care Instructions: Gastritis (ED), Diet for Stomach Ulcers and Gastritis (ED), General Headache (ED) Additional Instructions: 1. Recommend increasing water intake and sticking to a bland diet for the next 24 hours. 2. You have a prescription for antinausea medication. 3. Recommend Tylenol and ibuprofen together for improved headache control but please take with milk or food to counteract ibuprofen effects on the stomach. 4. Follow-up with your primary care provider next 1-2 days. Return to the ER for any worsening symptoms. Prescriptions: New ondansetron 4 mg tablet,disintegrating 4 mg PO Q8H PRN (Reason: nausea and vomiting) Qty: 7 0RF No Action amitriptyline 25 mg tablet 25 mg PO DAILY 90 Days Qty: 90 3RF atenolol 25 mg tablet 25 mg PO BID 90 Days Qty: 180 3RF (DME) blood pressure test kit-large Kit See Rx Instructions .Route Qty: 1 0RF Rx Instructions: As directed escitalopram oxalate 10 mg tablet 10 mg PO DAILY 90 Days Qty: 90 1RF Referrals: Tasha Harris MD [Primary Care Provider] - Stand Alone Forms: Work/School Release
[2022-09-07] MEDS: Acetaminophen 325 MG TABLET 975 MG PO (07:16)
[2022-09-07] MEDS: Magnesium Hydrox/Alum Hydrox 30 ML ORAL.SUSP PO (07:17)
[2022-09-07] MEDS: Ondansetron ODT 4 MG TAB.RAPDIS TRANSLINGU (07:17)
[2022-09-07] MEDS: Lidocaine HCl Viscous 2 % 15 ML SOLUTION 10 ML MUCOUS MEM (07:18)
[2022-09-07] MEDS: Ketorolac Tromethamine 15 MG/ML VIAL IM (07:20)
== END 2022-09-07 07:24 | disposition home or self-care (01) ==
PROVIDERS: Emergency Provider Student in an Organized Health Care Education/Training Program; PCP Internal Medicine
DX: K29.20 Alcoholic gastritis without bleeding (principal); R51.9 Headache, unspecified; Z20.822 Contact with and (suspected) exposure to COVID-19; I10 Essential (primary) hypertension; E78.2 Mixed hyperlipidemia; Z79.899 Other long term (current) drug therapy
CPT/HCPCS: 87635; 96372; 99283; 99284; J1885

== ENCOUNTER 2022-12-14 15:22 | Outpatient (REF) | payer OTHER, SELFPAY ==
[2022-12-14 16:36] LABS: Influenza A PCR NEGATIVE (Negative); Influenza B PCR NEGATIVE (Negative); Resp Syncy Virus RNA Qual PCR NEGATIVE (Negative); SARS COV2 PCR INHOUSE POSITIVE (Negative)
== END 2022-12-14 15:23 | disposition home or self-care (01) ==
LOC: HO.LAB 15:22
PROVIDERS: Internal Medicine; PCP Nurse Practitioner Family; Visit Provider Nurse Practitioner Family
DX: R09.89 Other specified symptoms and signs involving the circulatory and respiratory systems (principal); Z20.822 Contact with and (suspected) exposure to COVID-19
CPT/HCPCS: 0241U

== ENCOUNTER 2023-02-27 06:54 | Outpatient (REF) | payer OTHER, SELFPAY ==
[2023-02-27 07:08] LABS: MANUAL DIFF FLAG NO
[2023-02-27 08:24] LABS: Basophils Percent Auto 0.5 % (0-2); Eosinophils Absolute Auto 0.1 X10*3/uL (0.0-0.4); Eosinophils Percent Auto 2.5 % (0-4); Hematocrit 45.1 % (37.0-47.0); Hemoglobin 15.3 g/dl (12.0-16.0); Imm Gran Abs Auto 0.02 X10*3/uL (0.00-0.03); Imm Gran Pct Auto 0.4 % (0.0-0.4); Lymphocytes Absolute Auto 3.1 X10*3/uL (1.2-4.9); Lymphocytes Percent Auto 55.1 % (20-40); Mean Corpuscular HGB Conc 33.9 g/dl (31.0-35.0); Mean Corpuscular Hemoglobin 30.5 pg (27.0-33.0); Mean Platelet Volume 10.3 fL (9.4-12.3); Monocytes Absolute Auto 0.4 X10*3/uL (0.1-1.2); Monocytes Percent Auto 6.6 % (2-11); Neutrophils Percent Auto 34.9 % (45-73); Platelet Count 253 X10*3/uL (160-400); Red Blood Count 5.01 X10*6/uL (4.20-5.50); Red Cell Distribution Width 13.8 % (11.0-16.0); White Blood Count 5.6 X10*3/uL (4.8-10.8)
[2023-02-27 09:12] LABS: Alanine Aminotransferase 17 U/L (0-31); Albumin Level 4.3 g/dL (3.5-5.0); Alkaline Phosphatase 136 U/L (39-117); Anion Gap 14 (12-20); Aspartate Amino Transferase 23 U/L (5-31); Bilirubin Total 0.9 mg/dL (0.0-1.0); Blood Urea Nitrogen 18 mg/dL (9-16); Calcium 9.5 mg/dL (8.4-10.2); Carbon Dioxide 25 mmol/L (22-29); Chloride 105 mmol/L (96-108); Cholesterol 287 mg/dL; Estimated Glomerular Filt Rate 55; Glucose Random 102 mg/dL (60-115); HDL Cholesterol 59 mg/dL; LDL Cholesterol Calculated 197 mg/dl; Potassium 4.2 mmol/L (3.3-5.1); Sodium 140 mmol/L (135-145); Total Protein 7.4 g/dL (6.5-8.0); Triglycerides 158 mg/dL
[2023-02-27 09:46] LABS: Thyroid Stimulating Hormone 3.74 uIU/mL (0.32-4.0); Vitamin B12 652 pg/mL (200-900); Vitamin D 25-OH Total 36.8 ng/mL (>30)
== END 2023-02-27 06:55 | disposition home or self-care (01) ==
LOC: HO.LAB 06:54
PROVIDERS: PCP Internal Medicine; Visit Provider Internal Medicine
DX: E78.5 Hyperlipidemia, unspecified (principal); I10 Essential (primary) hypertension; D64.9 Anemia, unspecified; G93.9 Disorder of brain, unspecified; E55.9 Vitamin D deficiency, unspecified; E53.8 Deficiency of other specified B group vitamins; E66.9 Obesity, unspecified
CPT/HCPCS: 36415; 80053; 80061; 82306; 82607; 82746; 84443; 85025

== ENCOUNTER 2023-06-24 16:35 | Outpatient (AMB) | payer OTHER, SELFPAY ==
[2023-06-24 16:36] VITALS: BP 152/88; BMI 34.3
--- NOTE | 2023-06-24 16:36 | MHC.PC.OV ---
Vital Signs 06/24/23 16:36 06/24/23 17:17 Height 5 ft 5 in Weight 206 lb BMI 34.3 BP 152/88 H 150/90 H Blood Pressure Location Lt brachial Lt brachial Position Sitting Sitting Intake Visit Reasons: physical Intake Note: Patient here for a physical exam Form Block Maker Required: No Accompanied by: Self / Same As Patient Allergies No Known Allergies [No Known Allergies*] Allergy (Unknown, Verified 06/24/23 16:50) Medication List - Last Reconciled 06/24/23 by Tasha Varghese MD amitriptyline 25 mg PO DAILY 90 days atenolol 25 mg PO BID 90 days blood pressure test kit-large As directed escitalopram oxalate 10 mg PO DAILY 90 days Tobacco use date assessed: 06/24/23 Dental Screening Dental Screen Date: 06/24/23 Did you have a dental visit in the last 12 months?: Yes Did you have a dental problem in the last 6 months where you did not have access to dental care?: No Was dental information given to patient?: Patient has dentist HPI HPI Comments History of Present Illness Details This is a 57-year-old female that comes for her physical exam. Last mammogram was over a year ago and she will call and schedule a mammogram. Last Pap smear was 2019 and was normal. Last colonoscopy was 2018 and was recommended to be repeated in 5-7 years. No chest pain or shortness of breath. Has been drinking alcohol more and has had more depression and suicidal thoughts occasionally. I will send a message to Behavioral Health regarding this matter. Blood pressure elevated and will be recheck in 3 weeks by nurse navigator. [facility] Medical History (Updated 06/24/23 @ 17:28 by Tasha Varghese MD) Abnormal brain MRI Acne vulgaris Anxiety Brain lesion Essential hypertension Headache Hyperkalemia Insomnia Liver cyst Mild recurrent major depression Mixed hyperlipidemia Obesity (BMI 35.0-39.9 without comorbidity) Right upper quadrant abdominal pain Skin lesion Surgical History No pertinent past surgical history Family History (Updated 06/24/23 @ 16:54 by Tasha Varghese MD) Father No problems noted. Mother High cholesterol Accelerated essential hypertension Family/Other FH: mental illness Social History Housing: House Alcohol intake: current Alcohol intake frequency: a few times a week Alcohol type: hard liquor Patient Tobacco Use Status: Never used Tobacco e-Cigarette/Vaping Use: Never Used Second Hand Smoke Exposure: No service: No Current occupational status: employed Current occupational exposures/hazards: No Cognitive needs: No Hearing needs: No Vision needs: Yes Questionnaire PHQ-9 Over the last 2 weeks, how often have you been bothered by any of the following problems? 1. Little interest or pleasure in doing things: more than half the days 2. Feeling down, depressed, or hopeless: more than half the days 3. Trouble falling or staying asleep, or sleeping too much: nearly every day 4. Feeling tired or having little energy: more than half the days 5. Poor appetite or overeating: more than half the days 6. Feeling bad about yourself - or that you are a failure or have let yourself or your family down: several days 7. Trouble concentrating on things, such as reading the newspaper or watching television: not at all 8. Moving or speaking so slowly that other people could have noticed. Or the opposite - being so fidgety or restless that you have been moving around a lot more than usual: not at all 9. Thoughts that you would be better off or of hurting yourself in some way: several days Total score: 13 Depression Screening Interpretation: Positive Depression Screening Follow-up: Existing condition 74444 - PHQ-9 Billing: Yes Source: Developed by Drs. Erik Kruse, Marisol Lyons, Malick Bravo and colleagues, with an educational luis from [employer]. Thrive Questionnaire Date Thrive assessed: 06/24/23 I am a: Patient What is your living situation today?: I have a steady place to live Within the past 12 months, did the food you bought not last and you didn't have the money to get more?: Never true Within the past 12 months, did you worry whether your food would run out before you got money to buy more?: Never true Do you have trouble paying for medicines?: No Do you have trouble getting transportation to medical appointments?: No Do you have trouble paying your heating and electricity bill?: No Do you have trouble taking care of your child, family member or friend?: No Do you have trouble with day-to-day activities such as bathing, preparing meals, shopping, managing finances, etc.?: No Are you currently unemployed and looking for a job?: No Are you interested in more education?: No Please select the resources that you would like help with: None Currently or been in a relationship where the following occur: no concerns reported AUDIT C Alcohol Use Questionnaire (AUDIT-C) 1. How often do you have a drink containing alcohol?: 4 or more times a week 2. How many drinks containing alcohol do you have on a typical day when you are drinking?: 3 or 4 3. How often do you have six or more drinks on one occasion?: Never Total Score: 5 Score Reviewed/Action Taken: Yes RAUDEL-7 AMB Questionnaire RAUDEL-7 Date RAUDEL - 7 assessed: 06/24/23 Feeling nervous, anxious, or on edge: 3 = Nearly every day Not being able to stop or control worryin = Several days Worrying too much about different things: 3 = Nearly every day Trouble relaxin = Several days Being so restless that it is hard to sit still: 0 = Not at all Becoming easily annoyed or irritable: 1 = Several days Feeling afraid as if something awful might happen: 3 = Nearly every day Total RAUDEL-7 score (0-4 normal; 5-9 mild; 10-14 moderate; 15-21 severe): 12 Source: Developed by Drs. Erik Kruse, Marisol Lyons, Malick Bravo and colleagues, with an educational luis from [employer]. RAUDEL-7 Assessment Billing RAUDEL-7 Assessment Tool: RAUDEL-7 Assessment 38591 Review of Systems Const All systems reviewed & are unremarkable except as noted in HPI and below Eyes Reports no additional complaints, Denies change in vision and Denies other visual disturbances Card Denies chest pain at rest, Denies chest pain with activity, Denies edema, Denies irregular heart rhythm, Denies claudication, Denies dyspnea, Denies dyspnea on exertion, Denies orthopnea, Denies paroxysmal nocturnal dyspnea and Denies slow heart rate Resp Denies cough, Denies dyspnea and Denies dyspnea on exertion GI Denies abdominal pain, Denies change in bowel habits, Denies excessive flatus, Denies nausea and Denies vomiting Denies urinary incontinence, Denies urinary hesitancy and Denies urinary urgency Musc Denies abnormal gait, Denies atrophy, Denies deformity and Denies limited range of motion Skin/Breast Denies bleeding lesions, Denies changing lesions and Denies rash Neuro Denies abnormal gait, Denies confusion and Denies lack of coordination Psych Reports abnormal sleep pattern, Denies confusion, Reports depression and Reports hopelessness Physical exam (Primary Care) Vital Signs: Last Vital Signs BP 150/90 H 06/24/23 17:17 BMI result Body Mass Index 34.3 Tobacco/Smoking Status: Tobacco use Status Tobacco use date assessed 06/24/23 06/24/23 16:44 Patient Tobacco Use Status Never used Tobacco 06/24/23 16:56 Tobacco use type 04/28/22 09:05 e-Cigarette/Vaping Use Never Used 06/24/23 16:56 PHQ-9: PHQ-9 Score PHQ-9: Total score 13 06/24/23 17:01 Depression Screening Interpretation: Positive Depression Screening Follow-up: Existing condition Thrive Assessment: Date of Thrive Assessment Date Thrive assessed 06/24/23 06/24/23 16:44 Currently or been in a relationship where the following occur: no concerns reported Const General: No confusion Orientation/consciousness: patient oriented x3 and No confusion Eyes General: appearance normal, both eyes and all related structures Eyelids: Yes eyelids normal Conjunctivae: conjunctivae normal Neck Neck: Yes normal visual inspection and Yes supple Resp Effort & Inspection: normal respiratory effort Auscultation: clear to auscultation bilaterally Cardio Jugular venous distension: no JVD Rate: regular rate Rhythm: regular rhythm Heart sounds: S1 normal heart sound present and S2 normal heart sound present GI Inspection: Yes normal to inspection Palpation (GI): Soft to palpation and nontender Auscultation: normal bowel sounds Skin General skin exam: no rashes or lesions noted Neuro General: patient oriented x3, no focal motor deficits and No confusion Extrem General: Yes full ROM Psych Affect: Sad affect present Assessment and Plan Assessment & Plan (1) Physical exam: Code(s): Z00.00 - Encounter for general adult medical examination without abnormal findings Plan: Repeat in a year (2) Moderate recurrent major depression: Code(s): F33.1 - Major depressive disorder, recurrent, moderate Plan: Increase escitalopram to 20 mg. Orders: Orders Comprehensive [place]. Panel Fast Today I10 - Essential (primary) hypertension Lipid Panel Today E78.5 - Hyperlipidemia, unspecified ECG 12 lead EKG Today I10 - Essential (primary) hypertension Referrals Counseling Referral F33.1 - Major depressive disorder, recurrent, moderate Gastroenterology Referral Z12.11 - Encounter for screening for malignant neoplasm of colon Medications: New escitalopram oxalate 20 mg PO DAILY 90 tabs 1RF 90 days F33.0 - Major depressive disorder, recurrent, mild amitriptyline 50 mg PO BEDTIME 90 tabs 0RF 90 days F33.0 - Major depressive disorder, recurrent, mild Discontinued escitalopram oxalate Discontinued Reason: Patient Completed Course 10 mg PO DAILY 90 days 90 tabs 1RF F41.9 - Anxiety disorder, unspecified amitriptyline Discontinued Reason: Patient Completed Course 25 mg PO DAILY 90 days 90 tabs 3RF Coding Level of Care Code Est Pt Prev Care 40-64y(47057) Diagnoses Physical exam Z00.00 Moderate recurrent major depression F33.1 Additional Codes RAUDEL-7 Assessment Billing - RAUDEL-7 Assessment Tool: RAUDEL-7 Assessment 06042 ([id number]) Time Spent (min) 35
[2023-06-24 17:17] VITALS: BP 150/90
== END 2023-06-24 17:29 | disposition home or self-care (01) ==
PROVIDERS: Visit Provider Internal Medicine
DX: Z00.00 Encounter for general adult medical examination without abnormal findings (principal); F33.1 Major depressive disorder, recurrent, moderate
CPT/HCPCS: 99396

== ENCOUNTER 2023-06-25 11:30 | Outpatient (REF) | payer OTHER, SELFPAY ==
--- NOTE | 2023-06-25 11:34 | ECG_ITS ---
Test Reason : htn Blood Pressure : / mmHG Vent. Rate : 071 BPM Atrial Rate : 071 BPM P-R Int : 176 ms QRS Dur : 078 ms QT Int : 402 ms P-R-T Axes : 019 040 022 degrees QTc Int : 436 ms Normal sinus rhythm Normal ECG When compared with ECG of 31-JAN-2021 13:04, No significant change was found Referred By: Tasha Varghese Electronically Signed By:LINDSAY MARQUEZ MD
[2023-06-25 12:49] LABS: Alanine Aminotransferase 18 U/L (0-31); Albumin Level 4.1 g/dL (3.5-5.0); Alkaline Phosphatase 127 U/L (39-117); Anion Gap 17 (12-20); Aspartate Amino Transferase 19 U/L (5-31); Bilirubin Total 0.6 mg/dL (0.0-1.0); Blood Urea Nitrogen 18 mg/dL (9-16); Calcium 9.6 mg/dL (8.4-10.2); Carbon Dioxide 18 mmol/L (22-29); Chloride 107 mmol/L (96-108); Cholesterol 281 mg/dL; Estimated Glomerular Filt Rate > 60; Glucose Fasting 116 mg/dL (60-99); HDL Cholesterol 52 mg/dL; LDL Cholesterol Calculated 194 mg/dl; Sodium 138 mmol/L (135-145); Total Protein 7.5 g/dL (6.5-8.0); Triglycerides 178 mg/dL
== END 2023-06-25 11:31 | disposition home or self-care (01) ==
LOC: HO.LAB 11:30
PROVIDERS: PCP Internal Medicine; Visit Provider Internal Medicine
DX: I10 Essential (primary) hypertension (principal); E78.5 Hyperlipidemia, unspecified
CPT/HCPCS: 36415; 80053; 80061; 93005

== ENCOUNTER → 2023-06-25 11:34 | Outpatient (BNV) | payer OTHER, SELFPAY | PROVIDERS: PCP Internal Medicine; Visit Provider Internal Medicine Cardiovascular Disease | DX: I10 Essential (primary) hypertension (principal) | CPT/HCPCS: 93010 ==

== ENCOUNTER 2023-10-23 08:54 | Outpatient (REF) | payer OTHER, SELFPAY ==
--- NOTE | ~2023-10-23 | MM_ITS ---
EXAMINATION: MM SCREENING DIGITAL BREAST TOMOSYNTHESIS, BILATERAL CLINICAL INFORMATION: Screening. Asymptomatic. COMPARISON: Mammography: This study is compared with prior exams dating back to 2016. TECHNIQUE: Digital breast tomosynthesis is performed in both the craniocaudal and mediolateral oblique views along with computer-aided detection (CAD). Synthesized 2D images are generated from the tomosynthesis. FINDINGS: There are scattered areas of fibroglandular density (ACR BI-RADS breast composition Category b). There are retroareolar calcifications in the left breast for which additional mammographic imaging with magnification is advised. In the right breast, there are no significant masses, abnormal calcifications, or other abnormalities. MM/MM tomosynthesis screening BI IMPRESSION: Left breast calcifications warrant additional mammographic imaging magnification. No mammographic signs of malignancy right breast. ASSESSMENT: BI-RADS BI-RADS 0 - Incomplete: Needs additional Imaging. RECOMMENDATION: Additional views of the left breast. Radiology department staff will contact the patient for additional imaging. Additional Imaging required This examination should not preclude the clinical evaluation of a suspicious palpable abnormality. This patient's information was entered into a reminder system with a target due date for their next mammogram.
== END 2023-10-23 08:55 | disposition home or self-care (01) ==
LOC: HO.MAMMO 08:54
PROVIDERS: PCP Internal Medicine; Visit Provider Internal Medicine
DX: Z12.31 Encounter for screening mammogram for malignant neoplasm of breast (principal)
CPT/HCPCS: 77063; 77067

== ENCOUNTER → 2023-10-23 09:00 | Outpatient (BNV) | payer OTHER, SELFPAY | PROVIDERS: PCP Internal Medicine; Visit Provider Radiology Diagnostic Radiology | DX: Z12.31 Encounter for screening mammogram for malignant neoplasm of breast (principal) | CPT/HCPCS: 77063; 77067 ==

== ENCOUNTER 2023-11-01 08:22 | Outpatient (REF) | payer OTHER, SELFPAY ==
--- NOTE | ~2023-11-01 | MM_ITS ---
EXAMINATION: MM DIAGNOSTIC DIGITAL BREAST TOMOSYNTHESIS, LEFT CLINICAL INFORMATION: The patient presents for further evaluation of left breast calcifications as noted on screening mammography from 10/23/2023. COMPARISON: Mammography: This study is compared with prior exams dating back to 2016. TECHNIQUE: Digital breast tomosynthesis is performed. 2D images are generated from the tomosynthesis. The following views are obtained: CC and lateral magnification imaging of the left breast and a full lateral view of the left breast. FINDINGS: There are scattered areas of fibroglandular density (ACR BI-RADS breast composition Category b). There are benign secretory calcifications of the left breast. There are no mammographic signs of malignancy. MM/MM tomosynthesis added views L IMPRESSION: No mammographic evidence of malignancy. ASSESSMENT: BI-RADS BI-RADS 2 - Benign Findings RECOMMENDATION: 1 year F/U Results were provided to the patient at time of visit by the technologist. This patient's information was entered into a reminder system with a target due date for their next mammogram.
== END 2023-11-01 08:23 | disposition home or self-care (01) ==
LOC: HO.MAMMO 08:22
PROVIDERS: PCP Internal Medicine; Visit Provider Internal Medicine
DX: R92.1 Mammographic calcification found on diagnostic imaging of breast (principal)
CPT/HCPCS: 77061; 77065

== ENCOUNTER → 2023-11-01 08:30 | Outpatient (BNV) | payer OTHER, SELFPAY | PROVIDERS: PCP Internal Medicine; Visit Provider Radiology Diagnostic Radiology | DX: R92.1 Mammographic calcification found on diagnostic imaging of breast (principal) | CPT/HCPCS: 77061; 77065 ==

== ENCOUNTER 2023-12-30 08:09 | Outpatient (REF) | payer OTHER, SELFPAY ==
[2023-12-30 09:23] LABS: Alanine Aminotransferase 146 U/L (0-31); Albumin Level 4.1 g/dL (3.5-5.0); Alkaline Phosphatase 148 U/L (39-117); Anion Gap 12 (12-20); Aspartate Amino Transferase 37 U/L (5-31); Bilirubin Total 0.6 mg/dL (0.0-1.0); Blood Urea Nitrogen 17 mg/dL (9-16); Calcium 9.6 mg/dL (8.4-10.2); Carbon Dioxide 27 mmol/L (22-29); Chloride 106 mmol/L (96-108); Cholesterol 160 mg/dL (<200); Estimated Glomerular Filt Rate > 60; Glucose Fasting 101 mg/dL (60-99); HDL Cholesterol 50 mg/dL (>40); LDL Cholesterol Calculated 91 mg/dL (<100); Sodium 141 mmol/L (135-145); Total Protein 7.4 g/dL (6.5-8.0); Triglycerides 99 mg/dL (<150)
== END 2023-12-30 08:10 | disposition home or self-care (01) ==
LOC: HO.LAB 08:09
PROVIDERS: PCP Internal Medicine; Visit Provider Internal Medicine
DX: R51.9 Headache, unspecified (principal); E78.5 Hyperlipidemia, unspecified
CPT/HCPCS: 36415; 80053; 80061

== ENCOUNTER 2024-01-18 11:17 | Outpatient (REF) | payer OTHER, SELFPAY ==
--- NOTE | ~2024-01-18 | US_ITS ---
EXAMINATION: US COMPLETE ABDOMEN WITH LIVER ELASTOGRAPHY CLINICAL INFORMATION: Elevated transaminase levels. COMPARISON: None available. TECHNIQUE: Real-time imaging of the abdominal viscera. Noninvasive ultrasound liver fibrosis assessment is performed using Leigha ElastPQ point quantification shear wave elastography (2D-SWE) with a C5-2 MHz transducer. Multiple elastography samples are obtained. FINDINGS: PANCREAS: Limited. The visualized pancreatic head and body are normal in appearance. The remainder of the pancreas is obscured from visualization by the overlying bowel gas. ABDOMINAL AORTA: The proximal and distal aortic segments are normal in caliber. The mid segment is obscured by overlapping bowel gas. INFERIOR VENA CAVA: Visualized portions are normal. LIVER: The liver demonstrates normal size, contour and echogenicity. No focal solid lesion or intrahepatic biliary duct dilatation. Within the left hepatic lobe, a 3.0 cm benign, simple cyst is seen. The right lobe measures 16.0 cm in length. The left lobe measures 11.7 cm in length. Portal flow is towards the liver (hepatopetal). Shear wave liver elastography median stiffness is 1.53 m/s (reference: normal median stiffness is 1.3 m/s or less). IQR/median stiffness to assess sampling precision is 0.10 (reference: good quality data set is IQR/median stiffness of 0.15 or less). GALLBLADDER: Normal. The gallbladder is physiologically distended without evidence of stones, sludge, polyps, wall thickening or pericholecystic fluid. COMMON BILE DUCT: Normal in caliber measuring 0.3 cm in diameter. RIGHT KIDNEY: Normal. No hydronephrosis. No renal calculi or focal parenchymal lesions. The kidney measures 10.3 cm in maximum dimension. LEFT KIDNEY: Normal. No hydronephrosis. No renal calculi or focal parenchymal lesions. The kidney measures 10.5 cm in maximum dimension. SPLEEN: Normal. The spleen measures 9.8 cm in maximum dimension. FREE FLUID: None. US/US abdomen comp w elastography IMPRESSION: 1. There is generalized increase in hepatic echotexture, consistent with fatty infiltration or hepatocellular disease. Please correlate clinically. No focal hepatic mass or intrahepatic biliary dilatation is seen. 2. Liver elastography: In the absence of other known clinical signs, measurements rule out compensated advanced chronic liver disease. If there are known clinical signs, further testing may be needed for confirmation. When compared with prior exam, there is a statistically significant increase in liver stiffness (increase at least 10%). 3. Technically limited ultrasound examination of the pancreas and abdominal great vessels. REFERENCE: Society of Radiologists in Ultrasound Liver Stiffness Thresholds (2020): LIVER STIFFNESS THRESHOLDS: *Liver Stiffness equal or less than 1.3 m/s: High probability of being normal. *Liver Stiffness less than 1.7 m/s: In the absence of other known clinical signs, rules out compensated advanced chronic liver disease. *Liver Stiffness 1.7-2.1 m/s: Suggestive of compensated advanced chronic liver disease but need further test for confirmation. *Liver Stiffness over 2.1 m/s: Rules in compensated advanced chronic liver disease. *Liver Stiffness over 2.4 m/s: Suggestive of clinically significant portal hypertension. QUALITY OF DATA SET: *IQR/Median value equal or less than 0.15 implies a quality data set. *IQR/Median value over 0.15 implies a poor quality data set. SIGNIFICANT CHANGE FROM PRIOR EXAM: Significant change if liver stiffness measurement is 10% or greater from prior exam. OTHER CONSIDERATIONS: The stage of liver fibrosis may be overestimated in the setting of acute hepatitis, liver inflammation, elevated liver function tests, hepatic vascular congestion, obstructive cholestasis, non-fasting state, and infiltrative diseases such as amyloidosis and lymphoma. In some patients with NAFLD, the liver stiffness thresholds for compensated advanced chronic liver disease may be lower. In causes other than viral hepatitis and NAFLD, liver stiffness thresholds are not well established.
== END 2024-01-18 11:18 | disposition home or self-care (01) ==
LOC: HO.US 11:17
PROVIDERS: PCP Internal Medicine; Visit Provider Internal Medicine
DX: R74.01 Elevation of levels of liver transaminase levels (principal)
CPT/HCPCS: 76700; 76981

== ENCOUNTER → 2024-03-30 12:37 | Outpatient (BNVA) | payer OTHER, SELFPAY | PROVIDERS: PCP Internal Medicine; Visit Provider Internal Medicine Gastroenterology ==

== ENCOUNTER 2024-04-17 16:05 | Outpatient (REF) | payer OTHER, SELFPAY ==
[2024-04-17 17:12] LABS: INTERNATIONAL NORM RATIO 0.9 (0.9-1.1); Prothrombin Time 10.9 SEC (11.1-13.3)
[2024-04-17 17:47] LABS: Alanine Aminotransferase 18 U/L (0-31); Albumin Level 4.2 g/dL (3.5-5.0); Alkaline Phosphatase 137 U/L (39-117); Aspartate Amino Transferase 22 U/L (5-31); Bilirubin Direct 0.2 mg/dL (0.0-0.5); Bilirubin Total 0.6 mg/dL (0.0-1.0); Total Protein 7.3 g/dL (6.5-8.0)
[2024-04-18 09:54] LABS: HBc Num1 0.13 S/CO (0.00-0.79); HBsAGNum1 0.23 S/CO (0.00-0.99); Hepatitis B Core Antibody Nonreactive (Nonreactive); Hepatitis B Surface Antigen Negative (Negative); ~HepC Num1 0.19 S/CO (0.00-0.79); ~Hepatitis B Surface Antibody NONREACTIVE (Nonreactive); ~Hepatitis C Antibody Nonreactive (Nonreactive)
[2024-04-28 02:24] LABS: FIB-ALT 14 U/L (6-29); FIB-Alpha-2-Macroglobulin 125 mg/dL (106-279); FIB-Apolipoprotein A1 159 mg/dL (101-198); FIB-GGT 20 U/L (3-70); FIB-Haptoglobin 76 mg/dL (43-212); FIB-Total Bilirubin 0.5 mg/dL (0.2-1.2); Liver Fibrosis Score 0.09; Liver Fibrosis Stage F0; Nec Inflam Act Grade A0; Nec Inflam Act Score 0.03
== END 2024-04-17 16:06 | disposition home or self-care (01) ==
LOC: HO.LAB 16:05
PROVIDERS: PCP Internal Medicine; Visit Provider Internal Medicine Gastroenterology
DX: Z13.89 Encounter for screening for other disorder (principal)
CPT/HCPCS: 36415; 80076; 81596; 85610; 86704; 86706; 86803; 87340

== ENCOUNTER 2024-04-27 11:13 | Outpatient (AMB) | payer OTHER, SELFPAY ==
[2024-04-27 11:20] VITALS: BP 152/90; BMI 35.6
--- NOTE | 2024-04-27 11:20 | A.OFFPC_ITS ---
Vital Signs 04/27/24 11:20 04/27/24 12:06 Height 5 ft 5 in Weight 214 lb BMI 35.6 BP 152/90 H 150/90 H Blood Pressure Location Lt brachial Lt brachial Position Sitting Sitting Intake Visit Reasons: Medications Intake Note: Patient here for follow up medications Marketing Support Specialist Required: No Accompanied by: Self / Same As Patient Allergies No Known Allergies [No Known Allergies*] Allergy (Unknown, Verified 04/27/24 11:32) Medication List - Last Reconciled 04/27/24 by Tasha Varghese MD amitriptyline 50 mg PO BEDTIME 90 days atenolol 50 mg PO BID 90 days atorvastatin 10 mg PO BEDTIME 90 days bisacodyl (Dulcolax (bisacodyl)) 10 mg (2 x 5 mg) PO ONCE 3 days blood pressure test kit-large As directed escitalopram oxalate 20 mg PO DAILY 90 days Tobacco use date assessed: 04/27/24 Dental Screening Dental Screen Date: 04/27/24 Did you have a dental visit in the last 12 months?: Yes Did you have a dental problem in the last 6 months where you did not have access to dental care?: No Was dental information given to patient?: Patient has dentist HPI HPI Comments History of Present Illness Details This is a 58-year-old female with hypertension, mixed hyperlipidemia, mild recurrent major depression and obesity that comes today for follow-up on her conditions. Blood pressure elevated today and I will add losartan. Blood pressure will be recheck in 3 weeks by nurse navigator. Lipid panel will be order for her physical exam in May and she is compliant with statins. On amitriptyline and escitalopram for her depression in which her PHQ-9 score has decrease. She has obese with a BMI of 35.6 and has tried diet and exercise with no improvement. Will start her on Wegovy. Side effects such as nausea, vomiting and abdominal pain were discussed. [facility] Medical History (Updated 04/27/24 @ 12:13 by Tasha Varghese MD) Mild recurrent major depression Moderate recurrent major depression Mixed hyperlipidemia Acne vulgaris Skin lesion Obesity (BMI 35.0-39.9 without comorbidity) Brain lesion Abnormal brain MRI Headache Hyperkalemia Liver cyst Right upper quadrant abdominal pain Insomnia Anxiety Essential hypertension Surgical History No pertinent past surgical history Family History Father No problems noted. Mother High cholesterol Accelerated essential hypertension Family/Other FH: mental illness Social History Housing: House Alcohol intake: current Alcohol intake frequency: a few times a week Alcohol type: hard liquor Patient Tobacco Use Status: Never used Tobacco e-Cigarette/Vaping Use: Never Used Second Hand Smoke Exposure: No service: No Current occupational status: employed Current occupational exposures/hazards: No Cognitive needs: No Hearing needs: No Vision needs: Yes Questionnaire PHQ-9 Over the last 2 weeks, how often have you been bothered by any of the following problems? 1. Little interest or pleasure in doing things: several days 2. Feeling down, depressed, or hopeless: several days 3. Trouble falling or staying asleep, or sleeping too much: several days 4. Feeling tired or having little energy: several days 5. Poor appetite or overeating: several days 6. Feeling bad about yourself - or that you are a failure or have let yourself or your family down: not at all 7. Trouble concentrating on things, such as reading the newspaper or watching television: not at all 8. Moving or speaking so slowly that other people could have noticed. Or the opposite - being so fidgety or restless that you have been moving around a lot more than usual: several days 9. Thoughts that you would be better off or of hurting yourself in some way : not at all Total score: 6 Depression Screening Interpretation: Positive Depression Screening Follow-up: Existing condition, In treatment and Follow-up Visit Requested Depression Screening Done: Yes 33166 - PHQ-9 Billing: Yes Source: Developed by Drs. Erik Kruse, Marisol Lyons, Malick Bravo and colleagues, with an educational luis from [employer]. Thrive Questionnaire Date Thrive assessed: 04/27/24 I am a: Patient What is your living situation today?: I have a steady place to live Within the past 12 months, did the food you bought not last and you didn't have the money to get more?: Never true Within the past 12 months, did you worry whether your food would run out before you got money to buy more?: Never true Do you have trouble paying for medicines?: No Do you have trouble getting transportation to medical appointments?: No Do you have trouble paying your heating and electricity bill?: No Do you have trouble taking care of your child, family member or friend?: No Do you have trouble with day-to-day activities such as bathing, preparing meals, shopping, managing finances, etc.?: No Are you currently unemployed and looking for a job?: No Are you interested in more education?: No Please select the resources that you would like help with: None Currently or been in a relationship where the following occur: no concerns reported THRIVE Score: 0 AUDIT C Alcohol Use Questionnaire (AUDIT-C) 1. How often do you have a drink containing alcohol?: Monthly or less 2. How many drinks containing alcohol do you have on a typical day when you are drinking?: 1 or 2 3. How often do you have six or more drinks on one occasion?: Never Total Score: 1 Score Reviewed/Action Taken: No RAUDEL-7 AMB Questionnaire RAUDEL-7 Date RAUDEL - 7 assessed: 04/27/24 Feeling nervous, anxious, or on edge: 2 = More than half the days Not being able to stop or control worryin = Not at all Worrying too much about different things: 2 = More than half the days Trouble relaxin = Several days Being so restless that it is hard to sit still: 0 = Not at all Becoming easily annoyed or irritable: 1 = Several days Feeling afraid as if something awful might happen: 3 = Nearly every day Total RAUDEL-7 score (0-4 normal; 5-9 mild; 10-14 moderate; 15-21 severe): 9 Source: Developed by Drs. Erik Kruse, Marisol Lyons, Malick Bravo and colleagues, with an educational luis from [employer]. RAUDEL-7 Assessment Billing RAUDEL-7 Assessment Tool: RAUDEL-7 Assessment 91797 Review of Systems Const All systems reviewed & are unremarkable except as noted in HPI and below Card Denies chest pain at rest, Denies chest pain with activity, Denies edema, Denies irregular heart rhythm, Denies claudication, Denies dyspnea, Denies dyspnea on exertion, Denies orthopnea, Denies paroxysmal nocturnal dyspnea and Denies slow heart rate Resp Denies cough, Denies dyspnea and Denies dyspnea on exertion Physical exam (Primary Care) Vital Signs: Last Vital Signs BP 152/90 H 04/27/24 11:20 Care Plan Goal for BP management: Add losartan 25 mg once a day. Continue atenolol. Next steps: Recheck blood pressure in 3 weeks by nurse navigator. BMI result Body Mass Index 35.6 BMI Assessment/Plan discussion: High BMI High, discussed plan: lifestyle, weight reduction, dietary, physical activity and alcohol moderation Tobacco/Smoking Status: Tobacco use Status Tobacco use date assessed 04/27/24 04/27/24 11:29 Patient Tobacco Use Status Never used Tobacco 04/27/24 11:29 Tobacco use type 09/07/23 12:48 e-Cigarette/Vaping Use Never Used 04/27/24 11:29 PHQ-9: PHQ-9 Score PHQ-9: Total score 6 04/27/24 11:29 Depression Screening Interpretation: Positive Depression Screening Follow-up: Existing condition, In treatment and Follow-up Visit Requested Thrive Assessment: Date of Thrive Assessment Date Thrive assessed 04/27/24 04/27/24 11:29 Currently or been in a relationship where the following occur: no concerns reported Resp Effort & Inspection: normal respiratory effort Auscultation: clear to auscultation bilaterally Cardio Jugular venous distension: no JVD Rate: regular rate Rhythm: regular rhythm Heart sounds: S1 normal heart sound present and S2 normal heart sound present Extrem General: Yes full ROM Assessment and Plan Assessment & Plan (1) Mixed hyperlipidemia: Code(s): E78.2 - Mixed hyperlipidemia Plan: Continue statins. Repeat lipid panel. Start low-cholesterol diet. (2) Obesity (BMI 35.0-39.9 without comorbidity): Code(s): E66.9 - Obesity, unspecified Plan: Start wegovy. Continue diet and exercise. BMI goal is less than 30. (3) Essential hypertension: Code(s): I10 - Essential (primary) hypertension Plan: Continue atenolol. Start losartan. Blood pressure goal is equal or less than 130/80. Recheck blood pressure with nurse navigator in 3 weeks. (4) Mild recurrent major depression: Code(s): F33.0 - Major depressive disorder, recurrent, mild Plan: Continue escitalopram and amitriptyline. Follow-up with me in May. Orders: Orders Lipid Panel Today E78.5 - Hyperlipidemia, unspecified Comprehensive [place]. Panel Fast Today I10 - Essential (primary) hypertension Medications: New losartan 25 mg PO DAILY 90 days 90 tabs 1RF I10 - Essential (primary) hypertension semaglutide (weight loss) (Reza) administer weeks 1 through 4 of therapy 0.25 mg (0.5 mL) subcut QWEEK 4 weeks 2 mL 0RF Refilled atorvastatin 10 mg PO BEDTIME 90 days 90 tabs 0RF escitalopram oxalate 20 mg PO DAILY 90 days 90 tabs 1RF F33.0 - Major depressive disorder, recurrent, mild Coding Level of Care Code Est Pt Level 4 (26221) Complex EM visit Add On G2211 Diagnoses Mixed hyperlipidemia E78.2 Obesity (BMI 35.0-39.9 without comorbidity) E66.9 Essential hypertension I10 Mild recurrent major depression F33.0 Additional Codes RAUDEL-7 Assessment Billing - RAUDEL-7 Assessment Tool: RAUDEL-7 Assessment 87637 ([id number]) Time Spent (min) 25
[2024-04-27 12:06] VITALS: BP 150/90
== END 2024-04-27 11:55 | disposition home or self-care (01) ==
PROVIDERS: PCP Internal Medicine; Visit Provider Internal Medicine
DX: E78.2 Mixed hyperlipidemia (principal); F33.0 Major depressive disorder, recurrent, mild; E66.9 Obesity, unspecified; Z68.36 Body mass index [BMI] 36.0-36.9, adult; I10 Essential (primary) hypertension
CPT/HCPCS: 99214; G2211

== ENCOUNTER 2024-05-11 08:13 | Outpatient (REF) | payer OTHER, SELFPAY ==
[2024-05-11 09:13] LABS: Alanine Aminotransferase 15 U/L (0-31); Albumin Level 4.2 g/dL (3.5-5.0); Alkaline Phosphatase 138 U/L (39-117); Anion Gap 14 (12-20); Aspartate Amino Transferase 19 U/L (5-31); Bilirubin Direct 0.2 mg/dL (0.0-0.5); Bilirubin Total 0.7 mg/dL (0.0-1.0); Blood Urea Nitrogen 19 mg/dL (9-16); Calcium 9.5 mg/dL (8.4-10.2); Carbon Dioxide 23 mmol/L (22-29); Chloride 104 mmol/L (96-108); Cholesterol 244 mg/dL (<200); Estimated Glomerular Filt Rate 55; Glucose Fasting 116 mg/dL (60-99); HDL Cholesterol 50 mg/dL (>40); LDL Cholesterol Calculated 147 mg/dL (<100); Potassium 3.9 mmol/L (3.3-5.1); Sodium 137 mmol/L (135-145); Total Protein 7.4 g/dL (6.5-8.0); Triglycerides 237 mg/dL (<150)
== END 2024-05-11 08:14 | disposition home or self-care (01) ==
LOC: HO.LAB 08:13
PROVIDERS: PCP Internal Medicine; Visit Provider Internal Medicine
DX: E78.5 Hyperlipidemia, unspecified (principal); E78.2 Mixed hyperlipidemia; R74.01 Elevation of levels of liver transaminase levels
CPT/HCPCS: 36415; 80053; 80061; 80076; 82248

== ENCOUNTER 2024-06-12 14:48 | Outpatient (AMB) | payer BC, OTHER, SELFPAY ==
--- NOTE | 2024-06-12 14:52 | A.OFFVIS_ITS ---
Vital Signs 06/12/24 14:53 Height 5 ft 5 in Weight 213 lb 6.519 oz BMI 35.5 BP 110/70 Blood Pressure Location Lt brachial Position Sitting Pulse 75 Pulse Source Pulse Oximeter Intake Visit Reasons: Obesity/LVM Intake Note: Patient present today for Obesity follow up visit. [place] Fancier Required: No Accompanied by: Self / Same As Patient Allergies No Known Allergies [No Known Allergies*] Allergy (Unknown, Verified 06/12/24 14:56) Medication List - Last Reconciled 06/12/24 by Erik Deluna MD amitriptyline 50 mg PO BEDTIME 90 days atenolol 50 mg PO BID 90 days atorvastatin 10 mg PO BEDTIME 90 days bisacodyl (Dulcolax (bisacodyl)) 10 mg (2 x 5 mg) PO ONCE 3 days blood pressure test kit-large As directed escitalopram oxalate 20 mg PO DAILY 90 days losartan 25 mg PO DAILY 90 days semaglutide (weight loss) (Wegovy) 0.25 mg (0.5 mL) subcut QWEEK 4 weeks HPI Comments Details: This is a 58-year-old white female referred to endocrinology for treatment of obesity. Primary care provider recently started Wegovy 0.25 mg Q weekly. Patient has tried diets intermittent and exercise regimen. Thyroid function studies are okay. Patient denies any snoring or symptoms of sleep apnea. Wt has been stable recently. No sx of Juan José's syndrome . [facility] Medical History (Updated 04/27/24 @ 12:13 by Tasha Varghese MD) Mild recurrent major depression Moderate recurrent major depression Mixed hyperlipidemia Acne vulgaris Skin lesion Obesity (BMI 35.0-39.9 without comorbidity) Brain lesion Abnormal brain MRI Headache Hyperkalemia Liver cyst Right upper quadrant abdominal pain Insomnia Anxiety Essential hypertension Surgical History No pertinent past surgical history Family History Father No problems noted. Mother High cholesterol Accelerated essential hypertension Family/Other FH: mental illness Social History Housing: House Alcohol intake: current Alcohol intake frequency: a few times a week Alcohol type: hard liquor Patient Tobacco Use Status: Never used Tobacco e-Cigarette/Vaping Use: Never Used Second Hand Smoke Exposure: No service: No Current occupational status: employed Current occupational exposures/hazards: No Cognitive needs: No Hearing needs: No Vision needs: Yes Physical Exam Vital Signs: Last Vital Signs Pulse 75 06/12/24 14:53 BP 110/70 06/12/24 14:53 BMI result Body Mass Index 35.5 Const Other: There is the absence of any cushingoid features. Thyroid gland is normal size weighs about 15 g Assessment & Plan Assessment & Plan (1) Obesity (BMI 35.0-39.9 without comorbidity): Code(s): E66.9 - Obesity, unspecified Category: Medical Plan: This is a 58-year-old white female with a history of obesity and previous history of MalFD plan is to send the patient to a audit spec. After long conversation with the patient, discussing weight loss medications including the use of Wegovy versus Zepbound we decided to prescribe Zepbound 2.5 mg Q weekly. Will titrate as tolerated. Went over side effects of Zepbound including but not limited to nausea, vomiting Andrare risk of pancreatitis. also suggested patient talk to primary care provider about getting a sleep study to rule out sleep apnea. Orders: Referrals Nutrition/Dietitian Referral E66.9 - Obesity, unspecified Medications: New tirzepatide (weight loss) (Zepbound) 2.5 mg (0.5 mL) subcut QWEEK 4 weeks 2 mL 5RF Discontinued semaglutide (weight loss) (Wegovy) administer weeks 1 through 4 of therapy Discontinued Reason: Doctor's Order 0.25 mg (0.5 mL) subcut QWEEK 4 weeks 2 mL 0RF Coding Level of Care Code New Pt Level 4 (45698) Diagnoses Obesity (BMI 35.0-39.9 without comorbidity) E66.9
[2024-06-12 14:53] VITALS: BP 110/70; PULSE 75; BMI 35.5
== END 2024-06-12 15:30 | disposition home or self-care (01) ==
PROVIDERS: PCP Internal Medicine; Visit Provider Internal Medicine Endocrinology, Diabetes & Metabolism
DX: E66.9 Obesity, unspecified (principal)
CPT/HCPCS: 99204

== ENCOUNTER → 2024-06-12 14:48 | Outpatient (BNVA) | payer BC, SELFPAY | PROVIDERS: PCP Internal Medicine; Visit Provider Internal Medicine Endocrinology, Diabetes & Metabolism ==

== ENCOUNTER 2024-07-16 06:28 | Emergency (ER) | payer BC, SELFPAY ==
--- NOTE | 2024-07-16 | ECG_ITS ---
Test Reason : CP Blood Pressure : / mmHG Vent. Rate : 074 BPM Atrial Rate : 074 BPM P-R Int : 170 ms QRS Dur : 076 ms QT Int : 408 ms P-R-T Axes : 003 029 010 degrees QTc Int : 452 ms Normal sinus rhythm Normal ECG When compared with ECG of 25-JUN-2023 11:34, No significant change was found Referred By: Generic ED Physician Electronically Signed By:ALINA LEVINE
--- NOTE | ~2024-07-16 | XR_ITS ---
EXAMINATION: XR CHEST CLINICAL INFORMATION: Pain COMPARISON: None available. TECHNIQUE: Frontal view of the chest was obtained. FINDINGS: No significant abnormality is noted involving the heart, lungs, mediastinum, bony thorax or soft tissues. XR/XR chest 1V IMPRESSION: Unremarkable examination.
[2024-07-16 06:44] VITALS: BP 112/50; PULSE 87; RESP 18; TEMP 36.6; O2SAT 98; BMI 35.6
[2024-07-16 07:18] LABS: Basophils Percent Auto 0.5 % (0-2); Eosinophils Absolute Auto 0.1 X10*3/uL (0.0-0.4); Eosinophils Percent Auto 1.9 % (0-4); Hematocrit 37.8 % (37.0-47.0); Hemoglobin 12.9 g/dl (12.0-16.0); Imm Gran Abs Auto 0.01 X10*3/uL (0.00-0.03); Imm Gran Pct Auto 0.2 % (0.0-0.4); MANUAL DIFF FLAG SCAN; Mean Corpuscular HGB Conc 34.1 g/dl (31.0-35.0); Mean Corpuscular Hemoglobin 30.9 pg (27.0-33.0); Mean Corpuscular Volume 90.4 fL (80.0-98.0); Mean Platelet Volume 9.5 fL (9.4-12.3); Monocytes Absolute Auto 0.4 X10*3/uL (0.1-1.2); Monocytes Percent Auto 6.1 % (2-11); Neutrophils Absolute Auto 1.8 x10*3/uL (2.0-8.3); Neutrophils Percent Auto 28.3 % (45-73); Platelet Count 235 X10*3/uL (160-400); Red Blood Count 4.18 X10*6/uL (4.20-5.50); Red Cell Distribution Width 14.6 % (11.0-16.0); SCAN SMEAR FLAG 1; White Blood Count 6.4 X10*3/uL (4.8-10.8)
[2024-07-16 07:22] LABS: IDNOW Serial# 08D9AD1C; Strep A Nucleic Acid Negative (Negative)
[2024-07-16 07:28] LABS: Alanine Aminotransferase 15 U/L (0-31); Albumin Level 4.1 g/dL (3.5-5.0); Alkaline Phosphatase 119 U/L (39-117); Anion Gap 13 (12-20); Aspartate Amino Transferase 19 U/L (5-31); Bilirubin Total 0.6 mg/dL (0.0-1.0); Blood Urea Nitrogen 21 mg/dL (9-16); Calcium 9.7 mg/dL (8.4-10.2); Carbon Dioxide 26 mmol/L (22-29); Chloride 104 mmol/L (96-108); Creatinine Clr Calc Pharmacy 66.8; Estimated Glomerular Filt Rate 53; Glucose Random 119 mg/dL (60-115); Potassium 3.8 mmol/L (3.3-5.1); Sodium 139 mmol/L (135-145); Total Protein 7.4 g/dL (6.5-8.0)
[2024-07-16 07:35] LABS: HCG Quantitative 3 mIU/mL
--- NOTE | 2024-07-16 07:35 | ED_ITS ---
HPI - General Adult General Chief complaint: General Medical Stated complaint: difficulty eating and drinking Time Seen by Provider: 07/16/24 07:05 Source: patient Mode of arrival: ambulatory Limitations: no limitations History of Present Illness ED Provider: DANIAL MASON narrative: 58 yo female with PMH of HTN, HLD, depression, has URI symptoms and tested positive for COVID about 2 weeks ago recovered no meds or steroids taken but notes since Wednesday she has intense throat and epigastric burning whenever she swallows or eats. She is not immunocompromised. Mylant has helped but she is not on PPI or H2 meg. She has never had esophagitis or anything like that before. No thrush noted on tongue. Pain only there with swallowing she is having a hard time eating MD complaint: throat, epigastric pain Onset (ago): day(s) (3) Location: mouth and neck Radiation: non-radiation Severity: moderate Quality: burning Pain Consistency: intermittent Relieving factors: none Exacerbating factors: eating Associated symptoms: denies other symptoms Treatments prior to arrival: other (mylanta, tums) Related Data Previous Rx's ?Medication ?Instructions ?Recorded blood pressure test kit-large #1 ea 09/12/23 bisacodyl 5 mg tablet,delayed 10 mg (2 x 5 mg) PO ONCE 3 days #6 03/30/24 release (Dulcolax (bisacodyl)) tabs atenolol 50 mg tablet 50 mg PO BID 90 days #180 tabs 04/13/24 escitalopram oxalate 20 mg tablet 20 mg PO DAILY 90 days #90 tabs 04/27/24 losartan 25 mg tablet 25 mg PO DAILY 90 days #90 tabs 04/27/24 nirmatrelvir 300 mg (150 mg 3 ea PO PER PKG DIR 5 days #30 ea 07/03/24 x2)-ritonavir 100 mg tablet,dose pack (Paxlovid) atorvastatin 10 mg tablet 10 mg PO BEDTIME 90 days #90 tabs 07/12/24 amitriptyline 50 mg tablet 50 mg PO BEDTIME 90 days #90 tabs 07/13/24 nystatin 100,000 unit/mL oral 400,000 unit (4 mL) PO .4 times a 07/16/24 suspension day 7 days #200 mL omeprazole 40 mg capsule,delayed 40 mg PO BID #60 caps 07/16/24 release Allergies Allergy/AdvReac Type Severity Reaction Status Date / Time No Known Allergies Allergy Unknown Verified 07/16/24 06:47 [No Known Allergies*] Review of Systems 2 Review of Systems: Constitutional : No Fever, No Chills, No Fatigue, pos anorexia ENT/Mouth : No sore throat, No Rhinorrhea, pos sore throat Eyes: No Eye Pain, No Swelling, No Redness Cardiovascular : No Chest Pain, No SOB, No Dyspnea on Exertion Respiratory : No Cough, No Sputum Gastrointestinal : No Nausea, No Vomiting, No Diarrhea, No abdominal Pain Genitourinary : No Dysuria, No Urinary Frequency, No Hematuria, Musculoskeletal : No joint pain, No Myalgias, No Joint Swelling Skin : No Skin Lesions, No rash Neuro : No Weakness, No Numbness, No Dizziness, positive Headache Psych : No Anxiety/Panic, No Depression All other systems reviewed and are negative [facility] Past Medical History Attestation statement: The following information was validated with the patient. Source: old records reviewed Medical History Obesity Mild recurrent major depression Moderate recurrent major depression Mixed hyperlipidemia Acne vulgaris Skin lesion Obesity (BMI 35.0-39.9 without comorbidity) Brain lesion Abnormal brain MRI Headache Hyperkalemia Liver cyst Right upper quadrant abdominal pain Insomnia Anxiety Essential hypertension Surgical History No pertinent past surgical history Family History Family History Father No problems noted. Mother High cholesterol Accelerated essential hypertension Family/Other FH: mental illness Social History Social History Housing: House Alcohol intake: current Alcohol intake frequency: a few times a week Alcohol type: hard liquor Patient Tobacco Use Status: Never used Tobacco e-Cigarette/Vaping Use: Never Used Second Hand Smoke Exposure: No Advance Directives: No Advance Directives Information Provided: No service: No Current occupational status: employed Current occupational exposures/hazards: No Cognitive needs: No Hearing needs: No Vision needs: Yes Physical Exam ED Vital Signs: Vital Signs - 24 hr 07/16/24 06:44 Temperature 97.8 F Pulse Rate 87 Respiratory Rate 18 Blood Pressure 112/50 L Pulse Oximetry 98 Oxygen Delivery Method Room Air BMI result Body Mass Index 35.6 Appearance: Alert. Oriented X3. No acute distress. Eyes: Pupils equal, round and reactive to light. ENT: Pharynx normal. no thrush noted papilla on back of tongue are midly inflammed but no redness, petechia signs of inflammation in mouth Neck: Normal inspection. Neck supple. CVS: Normal heart rate and rhythm. Pulses normal. Respiratory: No respiratory distress. Breath sounds normal. Abdomen: Soft and nontender. Skin: Skin warm and dry. Normal skin color. Normal skin turgor. Extremities: No lower extremity edema. No calf ttp Neuro: Oriented X 3. No motor deficit. No sensory deficit. Course Course Course Narrative: feels much better stable for DC Medications Administered Discontinued Medications Generic Name Dose Route Start Last Admin Trade Name Freq PRN Reason Stop Dose Admin Sodium Chloride 1,000 mls @ 999 mls/hr 07/16/24 07:43 07/16/24 08:29 Ns IV 07/16/24 08:43 999 mls/hr .Q1H1M ONE Administration Lidocaine HCl 15 ml 07/16/24 07:43 07/16/24 08:29 Lidocaine Hcl Viscous 2 % 15 Ml Solution MUCOUS MEM 07/16/24 07:44 15 ml ONCE ONE Administration Pantoprazole Sodium 40 mg 07/16/24 07:43 07/16/24 08:29 Pantoprazole Sodium 40 Mg/10 Ml Vial IVPUSH 07/16/24 07:44 40 mg ONCE ONE Administration Medical Decision Making Medical Decision Making [facility] Narrative: 58 yo female with PMH of HTN, HLD, depression s/p COVID 2 weeks ago now with sig throat burning and epigastric pain after swallowing no chest pain/dyspnea at baseline or exertion. No hx of GERD or thrush and not immunocompromised. No thrush seen on physical exam. At this time labs, EKG, IVF, protonix and lidocaine. Could be GERD will put on high dose PPI and nystatin in case of post viral mucositis I cannot see and instruct her to follow up with PCP. Given symptoms only present with swallowing doubt ACS or VTE Differential Diagnosis Differential Diagnoses: The differential diagnosis associated with the presentation includes esophagitis, thrush, mucositis Admission/Observation Consideration of admission/observation: Escalation of care including admission/observation considered not toxic or dehydrated can follow up as outpatient Lab Data [facility] Lab Attestation statement: I reviewed the patient's lab results. 07/16/24 07:04 07/16/24 07:04 Labs: Lab Results 07/16/24 Range/Units 07:04 WBC 6.4 (4.8-10.8) X10*3/uL RBC 4.18 L (4.20-5.50) X10*6/uL Hgb 12.9 (12.0-16.0) g/dl Hct 37.8 (37.0-47.0) % MCV 90.4 (80.0-98.0) fL MCH 30.9 (27.0-33.0) pg MCHC 34.1 (31.0-35.0) g/dl RDW 14.6 (11.0-16.0) % Plt Count 235 (160-400) X10*3/uL MPV 9.5 (9.4-12.3) fL Immature Gran % (Auto) 0.2 (0.0-0.4) % Neut % (Auto) 28.3 L (45-73) % Lymph % (Auto) 63.0 H (20-40) % [place] % (Auto) 6.1 (2-11) % Eos % (Auto) 1.9 (0-4) % Baso % (Auto) 0.5 (0-2) % Lymph # (Auto) 4.0 (1.2-4.9) X10*3/uL [place] # (Auto) 0.4 (0.1-1.2) X10*3/uL Eos # (Auto) 0.1 (0.0-0.4) X10*3/uL Baso # (Auto) 0.0 (0.0-0.2) X10*3/uL Abs Immat Gran (auto) 0.01 (0.00-0.03) X10*3/uL Absolute Neuts (auto) 1.8 L (2.0-8.3) x10*3/uL Absolute Nucleated RBC 0.000 (0.0-0.012) X10*3/uL Nucleated RBC % (auto) 0.0 (0.0-0.2) /100WBC Smear Tech's Comments VERIFIED Hold Blue Top SEE NOTE Sodium 139 (135-145) mmol/L Potassium 3.8 (3.3-5.1) mmol/L Chloride 104 (96-108) mmol/L Carbon Dioxide 26 (22-29) mmol/L Anion Gap 13 (12-20) BUN 21 H (9-16) mg/dL Creatinine 1.07 (0.5-1.4) mg/dL Estim Creat Clear Calc 66.8 Estimated GFR 53 Random Glucose 119 H (60-115) mg/dL Calcium 9.7 (8.4-10.2) mg/dL Total Bilirubin 0.6 (0.0-1.0) mg/dL AST 19 (5-31) U/L ALT 15 (0-31) U/L Alkaline Phosphatase 119 H (39-117) U/L Troponin I High Sens < 2.7 (<3.5-17.0) ng/L Total Protein 7.4 (6.5-8.0) g/dL Albumin 4.1 (3.5-5.0) g/dL Beta HCG, Quant 3 mIU/mL S. pyogenes GrpA LONNY Negative (Negative) Independent Interpretation I performed an independent interpretation of an: EKG and Plain X-Ray (normal ) Interpretation: Rate: 74 Rhythm: NSR Secretary: normal Normal P waves. Normal ZHEN. Normal QRS complex. ST T wave : normal no ASHANTI qTC: 452 prior studies: no acute ischemia The study has been interpreted contemporaneously by me. . Radiology Impression Discussion of test interpretation with radiology: I have reviewed the radiologist's reading. External Record Review External record reviewed: Outpatient record Prescription Management I considered prescription management with: Pain Medication and Other Discharge Plan Discharge Clinical Impression: Esophagitis, Acute mucositis Patient Disposition: Home, Self-Care Instructions: Oral Mucositis (ED), Esophagitis (ED) Additional Instructions: please call and follow up with your doctor this week no motrin, aleve, ibuprofen, aspirin, naprosyn for the next few months TYLENOL is okay you can take pepto bismol and gargle with it three times a day but then spit it out this might alleviate some pain in the back of your throat return for worsening pain, unable to swallow foods or pills this could mean there is sig swelling, fevers, bloody stools or any other concerns you should see a sales support representative I have listed a number below please call to schedule appointment labs reassuring very minimal dehydration given IVF CHEST XRAY negative strep negative EKG and troponin heart marker negative Prescriptions: New nystatin 100,000 unit/mL suspension 400,000 unit PO .4 times a day 7 Days Qty: 200 0RF Rx Instructions: swish and swallow omeprazole 40 mg capsule,delayed release(DR/EC) 40 mg PO BID Qty: 60 1RF Rx Instructions: 40mg BID for 10 days then 40mg daily for one month No Action (DME) blood pressure test kit-large Kit See Rx Instructions .Route Qty: 1 0RF Rx Instructions: As directed atenolol 50 mg tablet 50 mg PO BID 90 Days Qty: 180 1RF Paxlovid 300 mg (150 mg x 2)-100 mg tablets,dose pack 3 ea PO PER PKG DIR 5 Days Qty: 30 0RF atorvastatin 10 mg tablet 10 mg PO BEDTIME 90 Days Qty: 90 0RF amitriptyline 50 mg tablet 50 mg PO BEDTIME 90 Days Qty: 90 0RF escitalopram oxalate 20 mg tablet 20 mg PO DAILY 90 Days Qty: 90 1RF losartan 25 mg tablet 25 mg PO DAILY 90 Days Qty: 90 1RF bisacodyl [Dulcolax (bisacodyl)] 5 mg tablet,delayed release (DR/EC) 10 mg PO ONCE 3 Days Qty: 6 0RF Rx Instructions: Take 2 tablets at 12 pm starting 3 the day before colonoscopy Print Language: Cuban
[2024-07-16 07:37] LABS: Troponin-I High Sensitivity < 2.7 ng/L (<3.5-17.0)
[2024-07-16 07:45] LABS: SLIDE REVIEW VERIFIED
--- NOTE | 2024-07-16 08:10 | PC.NURSE ---
Chest Xray in progress at bedside. Plan to medicate upon completion.
[2024-07-16] MEDS: 0.9 % Sodium Chloride 1,000 ML 999 ML IV (08:29)
[2024-07-16] MEDS: Pantoprazole Sodium 40 MG/10 ML VIAL IVPUSH (08:29)
[2024-07-16] MEDS: Lidocaine HCl Viscous 2 % 15 ML SOLUTION MUCOUS MEM (08:29)
[2024-07-16 09:30] VITALS: BP 118/57; PULSE 80; RESP 16; TEMP 36.6; O2SAT 98
== END 2024-07-16 09:30 | disposition home or self-care (01) ==
PROVIDERS: Emergency Provider Emergency Medicine; PCP Internal Medicine
DX: K20.90 Esophagitis, unspecified without bleeding (principal); K12.30 Oral mucositis (ulcerative), unspecified; R10.2 Pelvic and perineal pain; R07.89 Other chest pain; R11.0 Nausea; Z79.899 Other long term (current) drug therapy
CPT/HCPCS: 36415; 71045; 80053; 84484; 84702; 85025; 87651; 93005; 96361; 96374; 99284; J2470

== ENCOUNTER 2024-12-22 14:50 | Outpatient (REF) | payer BC, SELFPAY ==
[2024-12-22 17:24] LABS: Influenza A PCR NEGATIVE (Negative); Influenza B PCR NEGATIVE (Negative); Resp Syncy Virus RNA Qual PCR NEGATIVE (Negative); SARS COV2 PCR INHOUSE NEGATIVE (Negative)
== END 2024-12-22 14:51 | disposition home or self-care (01) ==
LOC: HO.LNP 14:50
PROVIDERS: PCP Internal Medicine; Visit Provider Nurse Practitioner Family
DX: J06.9 Acute upper respiratory infection, unspecified (principal); R09.89 Other specified symptoms and signs involving the circulatory and respiratory systems
CPT/HCPCS: 0241U; 96127

== ENCOUNTER 2025-01-02 14:55 | Outpatient (AMB) | payer BC, SELFPAY ==
--- OUTSIDE RECORDS SUMMARY | 2025-01-02 14:58 | XMS_ITS | Data Portability ---
Author Organization [facility] Address [address] [place] [address] Assessment No assessment recorded. Plan of Treatment Reminders Order Date Submit Date Provider Last Modified By Organization Details Last Modified Time Details Appointments None recorded. Lab None recorded. Referral None recorded. Procedures None recorded. Surgeries None recorded. Imaging None recorded. Medication Orders ProAir HFA 90 mcg/actuat ion aerosol inhaler [address] [facility] [place] [id number] [address] [place], [place], [phone], 8 10:58:15 amoxicilli n 500 mg capsule 2017 018 [id number] [address] [place] [address], [place], [phone], 9 15:17:10 Patient TargetsNo targets recorded. Patient Instructions Encounter Date Encounter Id Patient Instructions Last Modified By Organization Details Last Modified Time 10/11/2018 [id number] Call if fever, sweats or no improvement marla Not available 10/11/2018 12:10:25 Reason for Referral None Reported. Results Created Date Observation Date Name Description Value Unit Range Abnormal Flag Note LastModifiedBy Organization Detail LastModifiedTime 06/15/2006/14/2019 mary SOLOMON bilat eral No observ ation record ed. [email or web address] [facility] (Medical Records) [address] [place], [address], 06/15/2019 16:09:12 Result Notes None recorded. Problems No Known Problems Procedures Surgical History Date Name Laterality Status Provider Name and Address Organization Details Recorded Time 10/04/20 18 Colonoscopy completed Paula Chandra NP, S [address] [place], [address], [facility] 10/25/2018 13:30:55 Imaging Results Imaging Date Name Status LastModified by Organiz ation Details LastModified Time 06/14/2019 MAMMO, screening, bilateral completed [email or web address] [facility] (Medical Records) [address] [place], [address], 06/15/2019 16:09:12 Procedure Notes None recorded. Medical Equipment None Reported. Allergies No known drug allergies Medications Name Sig Start Date Stop Date Status Note LastModified by Organization Details LastModified Time amoxicillin 500 mg capsule Take 1 capsule every 8 hours by oral route. 09/25 completed Not Available Not Available Not Available azithromyci n 250 mg tablet 10/11 completed Not Available Not Available Not Available atenolol 25 mg tablet TAKE 1 TABLET BY MOUTH TWICE DAILY active Not Available Not Available No t Available peg-electro lyte solution 420 gram oral solution 10/11 completed Not Available Not Available Not Available amitriptyli ne 25 mg tablet TAKE 2 TABLETS BY MOUTH AT BEDTIME active Not Available Not Available No t Available naproxen 500 mg tablet active Not Available Not Available Not Available bupropion HCl XL 150 mg 24 hr tablet, extended release active Not Available Not Available Not Available ProAir HFA 90 mcg/actuati on aerosol inhaler Inhale 2 puffs every 4 hours by inhalatio n route. 2017 active Not Available Not Available Not Avai lable Vitals Date Recorded Body weight Heart rate Oxygen saturation Oxygen saturation in Arterial blood by Pulse oximetry Body temperature Systolic blood pressure Diastolic blood pressure Provider Name and Address Organization Details Last Updated DateTime 8 21643.3 6 g 85 /min 95 % 95 % 98.7 [degF] 114 mm[Hg] 72 mm[Hg] Sharlene Lin [facility] 8 10:48:24 Date Recorded Oxygen saturation Oxygen saturation in Arterial blood by Pulse oximetry Provider Name and Address Organization Details Last Updated DateTime 10/11/2018 97 % 97 % Paula Chandra NP, [address] [place], [address], [facility] 10/11/2018 10:53:15 Social History Question Answer Notes LastModified by Organizat ion Details LastModified Time Tobacco Smoking Status Never Smoker [facility] 10/11/2018 10:47:07 What Was The Date Of Your Most Recent Tobacco Screening? 10/11/2018 Information n ot available 06/22/2019 Sex: Unknown Functional Status None recorded. Mental Status None recorded. Family History Nothing Reported. Medical History No medical history recorded. Gynecological HistoryNo gynecological history recorded. Obstetrics History GPAL:G 0 P 0 0 0 0 Past Encounters Encounter ID Performer Location Encounter Start Date Encounter Closed Date Diagnosis/Indication Diagnosis SNOMED-CT Code Diagnosis ICD10 Code Diagnosis Note [id number] Paula Chandra NP, S [facility] [address] [facility],[place] [address] 10/11/2018 10:41:23 10/14/2018 13:35:33 Acute bronchitis 61553375 J20.9 Health Concerns Section Related Observation LastModified by Organization Detai ls LastModified Time None Recorded Concern Status LastModified by Organization Details LastModified Time None Recorded Advance Directives Directive None Recorded Payers Encounter Date Sequence Insurance Name Policy Number Policy Faust Covered Member ID Faust Member ID Guarantor Name 10/11/2018 1 [facility] [id number] Nelda Gonzáles [id number] 1 Nelda Gonzáles Notes Date Note Type Note Provider Name a nd Address Organization Details Recorded Time 10/11/2018 text/html C/O 5 day history dry cough, body aches, headache and chest congestion Denies fever, sweats No CP/SOB/dizziness . No ear pain, mildly scratchy throat Paula Chandra NP, S [address] [place] [address], [phone], [facility] 10/11/2018 12:10:40 OBGyn Episode No OBEpisode recorded.
--- NOTE | 2025-01-02 15:18 | A.OFFPC_ITS ---
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 Accompanied by: Self / Same As Patient Allergies No Known Allergies [No Known Allergies*] Allergy (Unknown, Verified 01/02/25 15:34) Medication List - Last Reconciled 01/02/25 by Tasha Varghese MD albuterol sulfate 90 mcg/actuation 2 puffs inhalation Q6H PRN amitriptyline 100 mg PO BEDTIME 90 days amoxicillin mg PO 3XD atenolol 50 mg PO BID 90 days atorvastatin 10 mg PO BEDTIME 90 days bisacodyl (Dulcolax (bisacodyl)) 10 mg (2 x 5 mg) PO ONCE 3 days blood pressure test kit-large As directed escitalopram oxalate 20 mg PO DAILY 90 days losartan 25 mg PO DAILY 90 days omeprazole 40 mg PO BID tirzepatide (weight loss) (Zepbound) 5 mg (0.5 mL) subcut QWEEK Tobacco use date assessed: 01/02/25 Dental Screening Dental Screen Date: 01/02/25 Did you have a dental visit in the last 12 months?: Yes Did you have a dental problem in the last 6 months where you did not have access to dental care?: No Was dental information given to patient?: Patient has dentist HPI HPI Comments History of Present Illness Details This is a 59-year-old female that comes for her physical exam. Mammogram was over a year ago and I will order another mammogram. Colonoscopy done 2017 was normal. Vaccines up-to-date. Pap smear done 2019 and I will refer her to OBGYN for another Pap smear. She has moderate recurrent major depression and has tried amitriptyline 100 mg at bedtime with escitalopram with no significant improvement. I will refer her to psych outpatient for management of her depression with anxiety. She is obese with a BMI of 36.6 and tried Zepbound of until 5 mg with no weight loss. [facility] Medical History (Updated 01/02/25 @ 16:04 by Tasha Varghese MD) Moderate recurrent major depression Obesity Mild recurrent major depression Mixed hyperlipidemia Acne vulgaris Skin lesion Obesity (BMI 35.0-39.9 without comorbidity) Brain lesion Abnormal brain MRI Headache Hyperkalemia Liver cyst Right upper quadrant abdominal pain Insomnia Anxiety Essential hypertension Surgical History No pertinent past surgical history Family History Father No problems noted. Mother High cholesterol Accelerated essential hypertension Family/Other FH: mental illness Social History Housing: House Alcohol intake: current Alcohol intake frequency: a few times a week Alcohol type: hard liquor Patient Tobacco Use Status: Never used Tobacco e-Cigarette/Vaping Use: Never Used Second Hand Smoke Exposure: No service: No Current occupational status: employed Current occupational exposures/hazards: No Cognitive needs: No Hearing needs: No Vision needs: Yes Questionnaire PHQ-9 Over the last 2 weeks, how often have you been bothered by any of the following problems? 1. Little interest or pleasure in doing things: more than half the days 2. Feeling down, depressed, or hopeless: several days 3. Trouble falling or staying asleep, or sleeping too much: nearly every day 4. Feeling tired or having little energy: nearly every day 5. Poor appetite or overeating: nearly every day 6. Feeling bad about yourself - or that you are a failure or have let yourself or your family down: several days 7. Trouble concentrating on things, such as reading the newspaper or watching television: several days 8. Moving or speaking so slowly that other people could have noticed. Or the opposite - being so fidgety or restless that you have been moving around a lot more than usual: not at all 9. Thoughts that you would be better off or of hurting yourself in some way: several days Total score: 15 Depression Screening Interpretation: Positive (no sucidal thoughts) Depression Screening Follow-up: Existing condition, In treatment and Follow-up Visit Requested Depression Screening Done: Yes 93040 - PHQ-9 Billing: Yes Source: Developed by Drs. Erik Kruse, Marisol Lyons, Malick Bravo and colleagues, with an educational luis from [employer]. Thrive Questionnaire Date Thrive assessed: 01/02/25 I am a: Patient What is your living situation today?: I have a steady place to live Within the past 12 months, did the food you bought not last and you didn't have the money to get more?: Never true Within the past 12 months, did you worry whether your food would run out before you got money to buy more?: Never true Do you have trouble paying for medicines?: No Do you have trouble getting transportation to medical appointments?: No Do you have trouble paying your heating and electricity bill?: Yes Do you have trouble taking care of your child, family member or friend?: No Do you have trouble with day-to-day activities such as bathing, preparing meals, shopping, managing finances, etc.?: No Are you currently unemployed and looking for a job?: No Are you interested in more education?: No Please select the resources that you would like help with: None Currently or been in a relationship where the following occur: No concerns reported THRIVE Score: 1 AUDIT C Alcohol Use Questionnaire (AUDIT-C) 1. How often do you have a drink containing alcohol?: 2-4 times a month 2. How many drinks containing alcohol do you have on a typical day when you are drinking?: 3 or 4 3. How often do you have six or more drinks on one occasion?: Never Total Score: 3 RAUDEL-7 AMB Questionnaire RAUDEL-7 Date RAUDEL - 7 assessed: 01/02/25 Feeling nervous, anxious, or on edge: 3 = Nearly every day Not being able to stop or control worryin = Several days Worrying too much about different things: 2 = More than half the days Trouble relaxin = Several days Being so restless that it is hard to sit still: 0 = Not at all Becoming easily annoyed or irritable: 1 = Several days Feeling afraid as if something awful might happen: 1 = Several days Total RAUDEL-7 score (0-4 normal; 5-9 mild; 10-14 moderate; 15-21 severe): 9 Source: Developed by Drs. Erik Kruse, Marisol Lyons, Malick Bravo and colleagues, with an educational luis from [employer] RAUDEL-7 Assessment Billing RAUDEL-7 Assessment Tool: RAUDEL-7 Assessment 05108 Review of Systems Const All systems reviewed & are unremarkable except as noted in HPI and below Card Denies chest pain at rest, Denies chest pain with activity, Denies edema, Denies irregular heart rhythm, Denies claudication, Denies dyspnea, Denies dyspnea on exertion, Denies orthopnea, Denies paroxysmal nocturnal dyspnea and Denies slow heart rate Resp Denies cough, Denies dyspnea and Denies dyspnea on exertion GI Denies abdominal pain, Denies change in bowel habits, Denies excessive flatus, Denies nausea and Denies vomiting Physical exam (Primary Care) Vital Signs: Last Vital Signs BP 126/80 01/02/25 15:19 BMI result Body Mass Index 36.6 BMI Assessment/Plan discussion: High BMI High, discussed plan: lifestyle, weight reduction, dietary and physical activity Tobacco/Smoking Status: Tobacco use Status Tobacco use date assessed 01/02/25 01/02/25 15:26 Patient Tobacco Use Status Never used Tobacco 01/02/25 15:26 Tobacco use type 09/07/23 12:48 e-Cigarette/Vaping Use Never Used 01/02/25 15:26 PHQ-9: PHQ-9 Score PHQ-9: Total score 15 01/02/25 16:06 Depression Screening Interpretation: Positive (no sucidal thoughts) Depression Screening Follow-up: Existing condition, In treatment and Follow-up Visit Requested Thrive Assessment: Date of Thrive Assessment Date Thrive assessed 01/02/25 01/02/25 15:26 Currently or been in a relationship where the following occur: No concerns reported [facility] Head: Yes normal to inspection, Yes normocephalic and Yes atraumatic Ears: external ears normal Eyes General: appearance normal, both eyes and all related structures Eyelids: Yes eyelids normal Conjunctivae: conjunctivae normal Neck Neck: Yes normal visual inspection and Yes supple Resp Effort & Inspection: normal respiratory effort Auscultation: clear to auscultation bilaterally Cardio Jugular venous distension: no JVD Rate: regular rate Rhythm: regular rhythm Heart sounds: S1 normal heart sound present and S2 normal heart sound present GI Inspection: Yes normal to inspection Palpation (GI): Soft to palpation and nontender Auscultation: normal bowel sounds Skin General skin exam: no rashes or lesions noted Neuro General: no focal motor deficits Extrem General: Yes full ROM Office Procedures Flu Questionnaire Does the patient have a severe egg allergy?: No Immunizations Fluarix Triv 5685-1594 (PF) 45 mcg (15 mcg x 3)/0.5 mL IM syringe Performing Provider: Tasha Varghese MD Performing Location: [facility] [place] [facility] Documented (not given) by: JOSEPH Paniagua on 01/02/25 16:06 Reason Not Given: Not Given Coding Level of Care Code Est Pt Level 3 (16404) Est Pt Prev Care 40-64y(62857) Diagnoses Physical exam Z00.00 Moderate recurrent major depression F33.1 Additional Codes RAUDEL-7 Assessment Billing - RAUDEL-7 Assessment Tool: RAUDEL-7 Assessment 71963 ([id number]) PHQ-9 - 58990 - PHQ-9 Billing: Yes ([id number]) Time Spent (min) 33 Assessment & Plan Assessment & Plan (1) Physical exam: Code(s): Z00.00 - Encounter for general adult medical examination without abnormal findings Category: Medical (2) Moderate recurrent major depression: Code(s): F33.1 - Major depressive disorder, recurrent, moderate Category: Medical Plan Repeat health maintenance in a year. Colonoscopy should be 2027. Do mammogram this year. Referred to psych outpatient for management of depression. Orders: Orders MM tomosynthesis screening BI Today Z12.31 - Encounter for screening mammogram for malignant neoplasm of breast Lipid Panel Today E78.5 - Hyperlipidemia, unspecified Influenza 3754-9602 Immunization Today Z23 - Encounter for immunization Comprehensive [place]. Panel Fast Today Z00.00 - Encounter for general adult medical examination without abnormal findings Referrals Dermatology Referral L70.9 - Acne, unspecified Psychiatry Outpatient Consultation Service F33.1 - Major depressive disorder, recurrent, moderate MEDICAL SONOGRAPHER Referral Z12.4 - Encounter for screening for malignant neoplasm of cervix Medications: New amitriptyline 25 mg PO BEDTIME 30 tabs 0RF 30 days Refilled escitalopram oxalate 20 mg PO DAILY 90 tabs 1RF 90 days F33.0 - Major depressive disorder, recurrent, mild atenolol 50 mg PO BID 180 tabs 1RF 90 days losartan 25 mg PO DAILY 90 tabs 1RF 90 days I10 - Essential (primary) hypertension atorvastatin 10 mg PO BEDTIME 90 tabs 0RF 90 days Discontinued omeprazole 40mg BID for 10 days then 40mg daily for one month Discontinued Reason: Patient Completed Course 40 mg PO BID 60 caps 1RF tirzepatide (weight loss) (Zepbound) Discontinued Reason: Patient Completed Course 5 mg (0.5 mL) subcut QWEEK 2 mL 4RF amitriptyline Discontinued Reason: Patient Completed Course 100 mg PO BEDTIME 90 days 90 tabs 0RF
[2025-01-02 15:19] VITALS: BP 126/80; BMI 36.6
== END 2025-01-02 16:06 | disposition home or self-care (01) ==
PROVIDERS: PCP Internal Medicine; Visit Provider Internal Medicine
DX: Z00.00 Encounter for general adult medical examination without abnormal findings (principal); F33.1 Major depressive disorder, recurrent, moderate

== ENCOUNTER → 2025-01-02 14:55 | Outpatient (BNVA) | payer BC, SELFPAY | PROVIDERS: PCP Internal Medicine; Visit Provider Internal Medicine | DX: Z00.00 Encounter for general adult medical examination without abnormal findings (principal); F33.1 Major depressive disorder, recurrent, moderate; Z28.21 Immunization not carried out because of patient refusal | CPT/HCPCS: 96127 ==

== ENCOUNTER 2025-02-03 08:29 | Outpatient (REF) | payer BC, SELFPAY ==
--- OUTSIDE RECORDS SUMMARY | 2025-02-03 08:32 | XMS_ITS | Data Portability ---
Author Organization [facility] Address [address] [place] [address] Assessment No assessment recorded. Plan of Treatment Reminders Order Date Submit Date Provider Last Modified By Organization Details Last Modified Time Details Appointments None recorded. Lab None recorded. Referral None recorded. Procedures None recorded. Surgeries None recorded. Imaging None recorded. Medication Orders ProAir HFA 90 mcg/actuat ion aerosol inhaler 2017 018 [id number] [address] [place], [place], [phone], 8 10:58:15 amoxicilli n 500 mg capsule 2017 018 [address] [id number], [address], [place], [phone], 9 15:17:10 Patient TargetsNo targets recorded. Patient Instructions Encounter Date Encounter Id Patient Instructions Last Modified By Organization Details Last Modified Time 10/11/2018 [id number] Call if fever, sweats or no improvement marla Not available 10/11/2018 12:10:25 Reason for Referral None Reported. Results Created Date Observation Date Name Description Value Unit Range Abnormal Flag Note LastModifiedBy Organization Detail LastModifiedTime 06/15/2006/14/2019 mary SOLOMON bilat eral No observ ation record ed. [email or web address] [facility] (Medical Records) [address] [place], [address], 06/15/2019 16:09:12 Result Notes None recorded. Problems No Known Problems Procedures Surgical History Date Name Laterality Status Provider Name and Address Organization Details Recorded Time 10/04/20 18 Colonoscopy completed Paula Chandra NP, [address] [place], [address], [facility] 10/25/2018 13:30:55 Imaging Results Imaging Date Name Status LastModified by Organiz ation Details LastModified Time 06/14/2019 MAMMO, screening, bilateral completed [email or web address] [facility] (Medical Records) [address] [place], [address], 06/15/2019 16:09:12 Procedure Notes None recorded. Medical [...] Address Organization Details Last Updated DateTime 8 15831.3 6 g 85 /min 95 % 95 % 98.7 [degF] 114 mm[Hg] 72 mm[Hg] Sharlene Lin [facility] 8 10:48:24 Date Recorded Oxygen saturation Oxygen saturation in Arterial blood by Pulse oximetry Provider Name and Address Organization Details Last Updated DateTime 10/11/2018 97 % 97 % Paula Chandra NP, S [address] [place], [address], [facility] 10/11/2018 10:53:15 Social History Question Answer Notes LastModified by Organizat ion Details LastModified Time Tobacco Smoking Status Never [facility]oker [facility] 10/11/2018 10:47:07 What Was The Date [...] SNOMED-CT Code Diagnosis ICD10 Code Diagnosis Note [id number] Paula Chandra NP, S [facility] [address] [facility] [address] 10/11/2018 10:41:23 10/14/2018 13:35:33 Acute bronchitis 98041304 J20.9 Health Concerns Section Related Observation LastModified by Organization Detai ls LastModified Time None Recorded Concern Status LastModified by Organization Details LastModified Time None Recorded Advance Directives Directive None Recorded Payers Encounter Date Sequence Insurance Name Policy Number Policy Faust Covered Member ID Faust Member ID Guarantor Name 10/11/2018 1 [facility] [id number] Nelda Gonzáles [id number] Nelda Gonzáles Notes Date Note Type Note Provider Name a nd Address Organization Details Recorded Time 10/11/2018 text/html C/O 5 day history dry cough, body aches, headache and chest congestion Denies fever, sweats No CP/SOB/dizziness . No ear pain, mildly scratchy throat Paula Chandra NP, S [address] [place] [address], [phone], [facility] 10/11/2018 12:10:40 OBGyn Episode No OBEpisode recorded.
[2025-02-03 10:32] LABS: Alanine Aminotransferase 16 U/L (0-31); Albumin Level 4.1 g/dL (3.5-5.0); Alkaline Phosphatase 114 U/L (39-117); Anion Gap 12 (12-20); Aspartate Amino Transferase 19 U/L (5-31); Bilirubin Total 0.5 mg/dL (0.0-1.0); Blood Urea Nitrogen 17 mg/dL (9-16); Calcium 9.5 mg/dL (8.4-10.2); Carbon Dioxide 24 mmol/L (22-29); Chloride 107 mmol/L (96-108); Cholesterol 150 mg/dL (<200); Estimated Glomerular Filt Rate > 60; Glucose Fasting 91 mg/dL (60-99); HDL Cholesterol 56 mg/dL (>40); LDL Cholesterol Calculated 68 mg/dL (<100); Potassium 4.2 mmol/L (3.3-5.1); Sodium 139 mmol/L (135-145); Total Protein 7.6 g/dL (6.5-8.0); Triglycerides 130 mg/dL (<150)
== END 2025-02-03 08:30 | disposition home or self-care (01) ==
LOC: HO.LAB 08:29
PROVIDERS: PCP Internal Medicine; Visit Provider Internal Medicine
DX: Z00.00 Encounter for general adult medical examination without abnormal findings (principal); E78.5 Hyperlipidemia, unspecified
CPT/HCPCS: 36415; 80053; 80061

== ENCOUNTER 2025-03-20 15:23 | Outpatient (REF) | payer BC, SELFPAY ==
--- OUTSIDE RECORDS SUMMARY | 2025-03-20 18:19 | XMS_ITS | Data Portability ---
Author Organization [facility] Address [address] [place] [address] Assessment No assessment recorded. Plan of Treatment Reminders Order Date Submit Date Provider Last Modified By Organization Details Last Modified Time Details Appointments None recorded. Lab None recorded. Referral None recorded. Procedures None recorded. Surgeries None recorded. Imaging None recorded. Medication Orders ProAir HFA 90 mcg/actuat ion aerosol inhaler 2017 018 [id number], [address], [place], [id number], 8 10:58:15 amoxicilli n 500 mg capsule 2017 018 jvanasse [facility] #[id number], [address], [place], [phone], 9 15:17:10 Patient TargetsNo targets recorded. Patient Instructions Encounter Date Encounter Id Patient Instructions Last Modified By Organization Details Last Modified Time 10/11/2018 [id number] Call if fever, sweats or no improvement marla Not available 10/11/2018 12:10:25 Reason for Referral None Reported. Results Created Date Observation Date Name Description Value Unit Range Abnormal Flag Note LastModifiedBy Organization Detail LastModifiedTime 06/15/2006/14/2019 mary SOLOMON bilat eral No observ ation record ed. [email or web address] [facility] (Medical Records) [address] [place], [address], 06/15/2019 16:09:12 Result Notes None recorded. Problems No Known Problems Procedures Surgical History Date Name Laterality Status Provider Name and Address Organization Details Recorded Time 10/04/20 18 Colonoscopy completed Paula Chandra NP, [address] [place], [address], [facility] 10/25/2018 13:30:55 Imaging Results Imaging Date Name Status LastModified by Organiz ation Details LastModified Time 06/14/2019 MAMMO, screening, bilateral completed [email or web address] [facility] (Medical Records) [address] [place], [address], 06/15/2019 16:09:12 Procedure Notes None recorded. Medical [...] Address Organization Details Last Updated DateTime 8 51855.3 6 g 85 /min 95 % 95 % 98.7 [degF] 114 mm[Hg] 72 mm[Hg] Sharlene Lin [facility] 8 10:48:24 Date Recorded Oxygen saturation Oxygen saturation in Arterial blood by Pulse oximetry Provider Name and Address Organization Details Last Updated DateTime 10/11/2018 97 % 97 % Paula Chandra NP, [address] [place], [address], [facility] 10/11/2018 10:53:15 Social History Question Answer Notes LastModified by Organizat ion Details LastModified Time Tobacco Smoking Status [facility] 10/11/2018 10:47:07 What Was The Date Of [...] SNOMED-CT Code Diagnosis ICD10 Code Diagnosis Note 54037 Paula Chandra NP, S [facility] [address] [facility],[place] [address] 10/11/2018 10:41:23 10/14/2018 13:35:33 Acute bronchitis 52222327 J20.9 Health Concerns Section Related Observation LastModified by Organization Detai ls LastModified Time None Recorded Concern Status LastModified by Organization Details LastModified Time None Recorded Advance Directives Directive None Recorded Payers Encounter Date Sequence Insurance Name Policy Number Policy Faust Covered Member ID Faust Member ID Guarantor Name 10/11/2018 1 [facility] [id number] Nelda Gonzáles [id number] 1 Nelda Gonzáles Notes Date Note Type Note Provider Name a nd Address Organization Details Recorded Time 10/11/2018 text/html C/O 5 day history dry cough, body aches, headache and chest congestion Denies fever, sweats No CP/SOB/dizziness . No ear pain, mildly scratchy throat Paula Chandra NP, [address] [place] [address], [address], [facility] 10/11/2018 12:10:40 OBGyn Episode No OBEpisode recorded.
[2025-03-21 10:12] LABS: Influenza A PCR NEGATIVE (Negative); Influenza B PCR NEGATIVE (Negative); Resp Syncy Virus RNA Qual PCR NEGATIVE (Negative); SARS COV2 PCR INHOUSE NEGATIVE (Negative)
== END 2025-03-20 15:24 | disposition home or self-care (01) ==
LOC: HO.LAB 15:23
PROVIDERS: PCP Internal Medicine; Visit Provider Internal Medicine
DX: R09.89 Other specified symptoms and signs involving the circulatory and respiratory systems (principal)
CPT/HCPCS: 0241U

== ENCOUNTER 2025-03-22 10:16 | Outpatient (AMB) | payer BC, SELFPAY ==
--- NOTE | 2025-03-22 10:17 | MHC.PC.OV ---
Intake Visit Reasons: not feeling well [facility]ist Required: No Accompanied by: Self / Same As Patient Allergies No Known Allergies [No Known Allergies*] Allergy (Unknown, Verified 03/22/25 10:19) Tobacco use date assessed: 01/02/25 Dental Screening Dental Screen Date: 01/02/25 HPI HPI Comments History of Present Illness Details This is a 59-year-old female with moderate major depression hypertension that has tele health visit by phone complaining of nasal congestion associated with fatigue, chills and cough that started March 11 and has improved. She has sick contacts. Negative for COVID, flu and RSV. Depression and blood pressure has been stable. [facility] Medical History (Updated 03/22/25 @ 12:45 by Tasha Varghese MD) Moderate recurrent major depression Obesity Mild recurrent major depression Mixed hyperlipidemia Acne vulgaris Skin lesion Obesity (BMI 35.0-39.9 without comorbidity) Brain lesion Abnormal brain MRI Headache Hyperkalemia Liver cyst Right upper quadrant abdominal pain Insomnia Anxiety Essential hypertension Surgical History No pertinent past surgical history Family History Father No problems noted. Mother High cholesterol Accelerated essential hypertension Family/Other FH: mental illness Social History Housing: House Alcohol intake: current Alcohol intake frequency: a few times a week Alcohol type: hard liquor Patient Tobacco Use Status: Never used Tobacco e-Cigarette/Vaping Use: Never Used Second Hand Smoke Exposure: No service: No Current occupational status: employed Current occupational exposures/hazards: No Cognitive needs: No Hearing needs: No Vision needs: Yes Questionnaire PHQ-9 Over the last 2 weeks, how often have you been bothered by any of the following problems? 1. Little interest or pleasure in doing things: not at all 2. Feeling down, depressed, or hopeless: not at all 3. Trouble falling or staying asleep, or sleeping too much: not at all 4. Feeling tired or having little energy: not at all 5. Poor appetite or overeating: not at all 6. Feeling bad about yourself - or that you are a failure or have let yourself or your family down: not at all 7. Trouble concentrating on things, such as reading the newspaper or watching television: not at all 8. Moving or speaking so slowly that other people could have noticed. Or the opposite - being so fidgety or restless that you have been moving around a lot more than usual: not at all 9. Thoughts that you would be better off or of hurting yourself in some way: not at all Total score: 0 Depression Screening Interpretation: Negative Depression Screening Done: Yes Source: Developed by Drs. Erik Kruse, Marisol Lyons, Malick Bravo and colleagues, with an educational luis from [employer]. Thrive Questionnaire Date Thrive assessed: 01/02/25 I am a: Patient What is your living situation today?: I have a steady place to live Within the past 12 months, did the food you bought not last and you didn't have the money to get more?: Never true Within the past 12 months, did you worry whether your food would run out before you got money to buy more?: Never true Do you have trouble paying for medicines?: No Do you have trouble getting transportation to medical appointments?: No Do you have trouble paying your heating and electricity bill?: No Do you have trouble taking care of your child, family member or friend?: No Do you have trouble with day-to-day activities such as bathing, preparing meals, shopping, managing finances, etc.?: No Are you currently unemployed and looking for a job?: No Are you interested in more education?: No Please select the resources that you would like help with: None Currently or been in a relationship where the following occur: No concerns reported THRIVE Score: 0 AUDIT C Alcohol Use Questionnaire (AUDIT-C) 1. How often do you have a drink containing alcohol?: 2-4 times a month 2. How many drinks containing alcohol do you have on a typical day when you are drinking?: 1 or 2 3. How often do you have six or more drinks on one occasion?: Never Total Score: 2 RAUDEL-7 AMB Questionnaire RAUDEL-7 Date RAUDEL - 7 assessed: 03/22/25 Feeling nervous, anxious, or on edge: 0 = Not at all Not being able to stop or control worryin = Not at all Worrying too much about different things: 0 = Not at all Trouble relaxin = Not at all Being so restless that it is hard to sit still: 0 = Not at all Becoming easily annoyed or irritable: 0 = Not at all Feeling afraid as if something awful might happen: 0 = Not at all Total RAUDEL-7 score (0-4 normal; 5-9 mild; 10-14 moderate; 15-21 severe): 0 Source: Developed by Drs. Erik Kruse, Marisol Lyons, Malick Bravo and colleagues, with an educational luis from [employer]. Review of Systems Const All systems reviewed & are unremarkable except as noted in HPI and below Reports body aches, Reports chills and Reports fatigue ENT Reports nasal congestion Card Denies chest pain at rest, Denies chest pain with activity, Denies edema, Denies irregular heart rhythm, Denies claudication, Denies dyspnea, Denies dyspnea on exertion, Denies orthopnea, Denies paroxysmal nocturnal dyspnea and Denies slow heart rate Resp Denies cough, Denies dyspnea and Denies dyspnea on exertion GI Denies abdominal pain, Denies change in bowel habits, Denies excessive flatus, Denies nausea and Denies vomiting Endo Reports fatigue Physical exam (Primary Care) Tobacco/Smoking Status: Tobacco use Status Tobacco use date assessed 01/02/25 03/22/25 10:20 Patient Tobacco Use Status Never used Tobacco 03/22/25 10:20 Tobacco use type 09/07/23 12:48 e-Cigarette/Vaping Use Never Used 03/22/25 10:20 PHQ-9: PHQ-9 Score PHQ-9: Total score 0 03/22/25 10:46 Depression Screening Interpretation: Negative Thrive Assessment: Date of Thrive Assessment Date Thrive assessed 01/02/25 03/22/25 10:20 Currently or been in a relationship where the following occur: No concerns reported Telehealth Telehealth Telehealth Platform: Telephone Location of provider rendering services: practice address Location of patient: address on file Patient Identification confirmed using: Name, : Yes Telehealth method: voice only Patient verbally consented to treatment: Yes Patient verbally consented to billing insurance company: Yes Patient informed of any privacy concerns related to visit: Yes Minutes spent on Phone/Video with Pt.: 15 Coding Level of Care Code Tele Est Pt Level 3 (20128) Complex EM visit Add On G2211 Diagnoses URI (upper respiratory infection) J06.9 Essential hypertension I10 Moderate recurrent major depression F33.1 Time Spent (min) 15 Assessment & Plan Assessment & Plan (1) URI (upper respiratory infection): Code(s): J06.9 - Acute upper respiratory infection, unspecified Category: Medical Plan: Tripped symptoms. (2) Essential hypertension: Code(s): I10 - Essential (primary) hypertension Category: Medical Plan: Continue losartan and add Tylenol. Blood pressure goal is equal or less than 130/80. (3) Moderate recurrent major depression: Code(s): F33.1 - Major depressive disorder, recurrent, moderate Category: Medical Plan: Continue escitalopram.
--- OUTSIDE RECORDS SUMMARY | 2025-03-22 11:48 | XMS_ITS | Data Portability ---
Author Organization [facility] Address [address] [place] [address] Assessment No assessment recorded. Plan of Treatment Reminders Order Date Submit Date Provider Last Modified By Organization Details Last Modified Time Details Appointments None recorded. Lab None recorded. Referral None recorded. Procedures None recorded. Surgeries None recorded. Imaging None recorded. Medication Orders ProAir HFA 90 mcg/actuat ion aerosol inhaler 2017 018 INTERFACE [id number], [address] [place], [place], [phone], 8 10:58:15 amoxicilli n 500 mg capsule 2017 018 jvanasse [facility] #20236, [address] [place], [place], [phone], 9 15:17:10 Patient TargetsNo targets recorded. Patient Instructions Encounter Date Encounter Id Patient Instructions Last Modified By Organization Details Last Modified Time 10/11/2018 [id number] Call if fever, sweats or no improvement marla Not available 10/11/2018 12:10:25 Reason for Referral None Reported. Results Created Date Observation Date Name Description Value Unit Range Abnormal Flag Note LastModifiedBy Organization Detail LastModifiedTime 06/15/2006/14/2019 mary SOLOMON bilat eral No observ ation record ed. [email or web address] [facility] (Medical Records) [address] [place], [address], 06/15/2019 16:09:12 Result Notes None recorded. Problems No Known Problems Procedures Surgical History Date Name Laterality Status Provider Name and Address Organization Details Recorded Time 10/04/20 18 Colonoscopy completed Paula Chandra NP, [address] [place], [address], [facility] 10/25/2018 13:30:55 Imaging Results Imaging Date Name Status LastModified by Organiz ation Details LastModified Time 06/14/2019 MAMMO, screening, bilateral completed [email or web address] [facility] (Medical Records) [address] [place], [address], 06/15/2019 16:09:12 Procedure Notes None recorded. Medical [...] Address Organization Details Last Updated DateTime 8 89906.3 6 g 85 /min 95 % 95 % 98.7 [degF] 114 mm[Hg] 72 mm[Hg] Sharlene Lin [facility] 8 10:48:24 Date Recorded Oxygen saturation Oxygen saturation in Arterial blood by Pulse oximetry Provider Name and Address Organization Details Last Updated DateTime 10/11/2018 97 % 97 % Paula Chandra NP, [address] [place], [address], [facility] 10/11/2018 10:53:15 Social History Question Answer Notes LastModified by Organizat ion Details LastModified Time Tobacco Smoking Status Never [facility] 10/11/2018 10:47:07 What Was The Date [...] SNOMED-CT Code Diagnosis ICD10 Code Diagnosis Note [id number] Paula Chandra NP, S [facility] [address] [facility],[place] [address] 10/11/2018 10:41:23 10/14/2018 13:35:33 Acute bronchitis 56602354 J20.9 Health Concerns Section Related Observation LastModified by Organization Detai ls LastModified Time None Recorded Concern Status LastModified by Organization Details LastModified Time None Recorded Advance Directives Directive None Recorded Payers Encounter Date Sequence Insurance Name Policy Number Policy Faust Covered Member ID Faust Member ID Guarantor Name 10/11/2018 1 [facility] [id number] Nelda Gonzáles [id number] Nelda Gonzáles Notes Date Note Type Note Provider Name a nd Address Organization Details Recorded Time 10/11/2018 text/html C/O 5 day history dry cough, body aches, headache and chest congestion Denies fever, sweats No CP/SOB/dizziness . No ear pain, mildly scratchy throat Paula Chandra NP, [address] [place] [address], [address], [facility] 10/11/2018 12:10:40 OBGyn Episode No OBEpisode recorded.
== END 2025-03-22 11:13 | disposition home or self-care (01) ==
LOC: HO.HMCH 10:16
PROVIDERS: PCP Internal Medicine; Visit Provider Internal Medicine
DX: J06.9 Acute upper respiratory infection, unspecified (principal); I10 Essential (primary) hypertension; F33.1 Major depressive disorder, recurrent, moderate

== ENCOUNTER → 2025-03-22 10:16 | Outpatient (BNVA) | payer BC, SELFPAY | PROVIDERS: PCP Internal Medicine; Visit Provider Internal Medicine | DX: Z13.89 Encounter for screening for other disorder (principal) ==

== ENCOUNTER 2025-04-26 11:18 | Outpatient (REF) | payer BC, SELFPAY ==
[2025-04-26 15:31] LABS: Bacterial Vaginosis PCR NEGATIVE (Negative); Candida Group PCR NOT DETECTED (Not Detect); Candida glab krusei PCR NOT DETECTED (Not Detect); Trichomonas vaginalis PCR NOT DETECTED (Not Detect)
== END 2025-04-26 11:19 | disposition home or self-care (01) ==
LOC: HO.LAB 11:18
PROVIDERS: PCP Internal Medicine; Visit Provider Advanced Practice Midwife
DX: N95.0 Postmenopausal bleeding (principal)
CPT/HCPCS: 81515

== ENCOUNTER 2025-04-26 11:18 | Outpatient (AMB) | payer BC, SELFPAY ==
--- NOTE | 2025-04-26 11:20 | MHC.OFFVIS ---
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 [facility] Medical History (Updated 04/26/25 @ 11:47 by Alexandra Razo CNM) Postmenopausal bleeding Moderate recurrent major depression Obesity Mild recurrent major depression Mixed hyperlipidemia Acne vulgaris Skin lesion Obesity (BMI 35.0-39.9 without comorbidity) Brain lesion Abnormal brain MRI Headache Hyperkalemia Liver cyst Right upper quadrant abdominal pain Insomnia Anxiety Essential hypertension Surgical History No pertinent past surgical history Family History (Updated 04/26/25 @ 12:13 by Alexandra Razo CNM) Father No problems noted. Mother High cholesterol Accelerated essential hypertension Family/Other FH: mental illness Sister Uterine cancer Social History (Updated 04/26/25 @ 12:12 by Alexandra Razo CNM) Household Members Other:: (10yrs) Housing: House Alcohol intake: current Alcohol intake frequency: a few times a week Alcohol type: hard liquor Patient Tobacco Use Status: Never used Tobacco e-Cigarette/Vaping Use: Never Used Second Hand Smoke Exposure: No service: No Current occupational status: employed Current occupational exposures/hazards: No Cognitive needs: No Hearing needs: No Vision needs: Yes Female Reproductive History Menstrual Age of menopause: 56 Total pregnancies: 2 Full term: 2 Number of Living Children: 2 Date of last pap smear: 06/11/20 (neg pap and hpv) Review of Systems Const All systems reviewed & are unremarkable except as noted in HPI and below Physical Exam Vital Signs: Last Vital Signs BP 114/70 04/26/25 11:21 BMI result Body Mass Index 37.1 Const General: cooperative, healthy appearing and no acute distress Orientation/consciousness: patient oriented x3 GI Inspection: Yes normal to inspection Palpation (GI): Soft to palpation and Other GI palpation findings present (Nontender) Rectal Exam - Female: visual inspection normal General: Yes bladder normal to palpation External Female Exam: normal appearance of the urethra Speculum Exam - Vagina: normal palpation, normal vaginal discharge (Thin white ) and vagina atrophic Speculum Exam - Cervix: normal appearance of the cervix and normal palpation Bimanual exam- vagina & uterus: normal bimanual exam, normal palpation, uterine size normal, bladder normal to palpation, normal palpation, uterine shape normal and non-tender Bimanual Exam- Adnexa, other: normal adnexae Neuro General: patient oriented x3 Assessment & Plan Assessment & Plan (1) Postmenopausal bleeding: Code(s): N95.0 - Postmenopausal bleeding Category: Medical Plan Discussed the workup for postmenopausal bleeding to include pelvic ultrasound, endometrial recommended to rule out abnormal pathological findings atypia precancer or cancer of the. Pap screening completed. BV obtained. She expressed her concerns with having a low threshold for pain and prefers not to be awake for the endometrial biopsy. Reviewed alternative with a hysteroscopy under anesthesia in the operating room with MD, she prefer this option. Consult appointment to be made with Dr. Oreilly. Follow up pending ultrasound findings. The patient expressed understanding and agreement with the plan of care. All of her questions and concerns were addressed to the best of my ability. This note is constructed using voice recognition software. While every effort has been made to ensure accuracy, mold presser errors may have been included. Orders: Orders Bacterial Vaginosis Panel Today N95.0 - Postmenopausal bleeding Pap Smear Today N95.0 - Postmenopausal bleeding US pelvic and transvaginal Today N95.0 - Postmenopausal bleeding HPV High risk Today N95.0 - Postmenopausal bleeding Coding Level of Care Code New Pt Level 3 (26501) Diagnoses Postmenopausal bleeding N95.0
[2025-04-26 11:21] VITALS: BP 114/70; BMI 37.1
--- OUTSIDE RECORDS SUMMARY | 2025-04-26 11:43 | XMS_ITS | Data Portability ---
Author Organization [facility] Address [address] [place] [address] Assessment No assessment recorded. Plan of Treatment Reminders Order Date Submit Date Provider Last Modified By Organization Details Last Modified Time Details Appointments None recorded. Lab None recorded. Referral None recorded. Procedures None recorded. Surgeries None recorded. Imaging None recorded. Medication Orders ProAir HFA 90 mcg/actuat ion aerosol inhaler 2017 018 [facility]FACE [id number], [address], [place], [phone], 8 10:58:15 amoxicilli n 500 mg capsule 2017 018 jvanasse [facility] #15729, [address], [place], [phone], 9 15:17:10 Patient TargetsNo targets recorded. Patient Instructions Encounter Date Encounter Id Patient Instructions Last Modified By Organization Details Last Modified Time 10/11/2018 [id number] Call if fever, sweats or no improvement marla Not available 10/11/2018 12:10:25 Reason for Referral None Reported. Results Created Date Observation Date Name Description Value Unit Range Abnormal Flag Note LastModifiedBy Organization Detail LastModifiedTime 06/15/2006/14/2019 mary SOLOMON bilat eral No observ ation record ed. [email or web address] [facility] (Medical Records) [address] [place], [address], 06/15/2019 16:09:12 Result Notes None recorded. Problems No Known Problems Procedures Surgical History Date Name Laterality Status Provider Name and Address Organization Details Recorded Time 10/04/20 18 Colonoscopy completed Paula Chandra NP, [address] [place], [address], [facility] 10/25/2018 13:30:55 Imaging Results None recorded. Procedure Notes None recorded. Medical Equipment None [...] Available Not Avai lable Vitals Date Recorded Oxygen saturation Oxygen saturation in Arterial blood by Pulse oximetry Provider Name and Address Organization Details Last Updated DateTime 10/11/2018 97 % 97 % Paula Chandra NP, [address] [place], [address], [facility] 10/11/2018 10:53:15 Date Recorded Body weight Heart rate Oxygen saturation Oxygen saturation in Arterial blood by Pulse oximetry Body temperature Systolic blood pressure Diastolic blood pressure Provider Name and Address Organization Details Last Updated DateTime 8 91724.3 6 g 85 /min 95 % 95 % 98.7 [degF] 114 mm[Hg] 72 mm[Hg] Sharlene Lin [facility] 8 10:48:24 Social History Question Answer Notes LastModified by Organizat ion Details LastModified Time Tobacco Smoking Status Never Smoker Sharlene rocha [facility] 10/11/2018 10:47:07 What Was The Date Of [...] SNOMED-CT Code Diagnosis ICD10 Code Diagnosis Note 20739 Khoa Barahona DO [facility] [address] [facility],[place] [address] 10/11/2018 10:41:23 10/14/2018 13:35:33 Acute bronchitis 73426879 J20.9 Health Concerns Section Related Observation LastModified by Organization Detai ls LastModified Time None Recorded Concern Status LastModified by Organization Details LastModified Time None Recorded Advance Directives Directive None Recorded Payers Encounter Date Sequence Insurance Name Policy Number Policy Faust Covered Member ID Faust Member ID Guarantor Name 10/11/2018 1 [facility] [id number] Nelda Eliecer [id number] Nelda Gonzáles Notes Date Note Type Note Provider Name a nd Address Organization Details Recorded Time 10/11/2018 text/html C/O 5 day history dry cough, body aches, headache and chest congestion Denies fever, sweats No CP/SOB/dizziness . No ear pain, mildly scratchy throat Paula Chandra NP, [address] [place], [address], [facility] 10/11/2018 12:10:40 OBGyn Episode No OBEpisode recorded.
== END 2025-04-26 12:45 | disposition home or self-care (01) ==
LOC: HO.HWS 11:19
PROVIDERS: PCP Internal Medicine; Visit Provider Advanced Practice Midwife
DX: N95.0 Postmenopausal bleeding (principal)
CPT/HCPCS: 99203

== ENCOUNTER 2025-04-26 11:44 | Outpatient (REF) | payer BC, SELFPAY ==
[2025-05-02 11:25] LABS: HPV Genotype 16 Negative (Negative); HPV High Risk Negative (Negative)
[2025-05-02 11:26] LABS: HPV Genotype 18 Negative (Negative)
== END 2025-04-26 11:45 | disposition home or self-care (01) ==
LOC: HO.LNP 11:44
PROVIDERS: Visit Provider Advanced Practice Midwife
DX: N95.0 Postmenopausal bleeding (principal)
CPT/HCPCS: 87626; 88175

== ENCOUNTER 2025-05-15 13:07 | Outpatient (REF) | payer BC, SELFPAY ==
--- NOTE | ~2025-05-15 | US_ITS ---
EXAMINATION: US PELVIS CLINICAL INFORMATION: N95.0 - Postmenopausal bleeding COMPARISON: November 10, 2019 TECHNIQUE: Ultrasound of the pelvis is performed using both transabdominal and transvaginal transducers along with Doppler. Transvaginal imaging is performed due to inadequate visualization transabdominally. FINDINGS: Uterus: The uterus measures 6.9 x 5.2 x 6.5 cm. It has a lobulated contour. There are hypoechoic heterogeneous regions consistent with uterine leiomyomas. The largest is exophytic along the right lower uterine body and measures 4.1 x 4.1 x 3.5 cm, previously 1.7 x 3.0 x 1.7 cm. There is trace free fluid. The double wall endometrial thickness is 3 mm. Adnexa: Right ovary: Not visualized Left ovary: not visualized US/US pelvic and transvaginal IMPRESSION: Fibroid uterus. Enlarging subserosal leiomyoma in the lower uterine body on the right. Electronically signed by: Danyel Nicholson MD 05/15/2025 06:03 PM EDT
--- OUTSIDE RECORDS SUMMARY | 2025-05-15 14:54 | XMS_ITS | Data Portability ---
Author Organization [facility] Tele[facility] Patient Home Address [address] [place] [address] Assessment No assessment recorded. Plan of Treatment Reminders Order Date Submit Date Provider Last Modified By Organization Details Last Modified Time Details Appointments None recorded. Lab None recorded. Referral None recorded. Procedures None recorded. Surgeries None recorded. Imaging None recorded. Medication Orders ProAir HFA 90 mcg/actuat ion aerosol inhaler 2017 018 INTERFACE [employer] #[id number], [address] [place], [place], [phone], 8 10:58:15 amoxicilli n 500 mg capsule 2017 018 [id number], [address], [place], [phone], 9 15:17:10 Patient TargetsNo targets recorded. Patient Instructions Encounter Date Encounter Id Patient Instructions Last Modified By Organization Details Last Modified Time 10/11/2018 [id number] Call if fever, sweats or no improvement marla Not available 10/11/2018 12:10:25 Reason for Referral None Reported. Results Created Date Observation Date Name Description Value Unit Range Abnormal Flag Note LastModifiedBy Organization Detail LastModifiedTime 06/15/2006/14/2019 mary SOLOMON bilat eral No observ ation record ed. [email or web address] [facility] (Medical Records) [address] [place], [address], 06/15/2019 16:09:12 Result Notes None recorded. Problems No Known Problems Procedures Surgical History Date Name Laterality Status Provider Name and Address Organization Details Recorded Time 10/04/20 18 Colonoscopy completed Paula Chandra NP, [address] [place], [address], [facility] 10/25/2018 13:30:55 Imaging Results None [...] 97 % Paula Chandra NP, [address] [place], [address], [facility] Internal [facility] 10/11/2018 10:53:15 Date Recorded Body weight Heart rate Oxygen saturation Oxygen saturation in Arterial blood by Pulse oximetry Body temperature Systolic blood pressure Diastolic blood pressure Provider Name and Address Organization Details Last Updated DateTime 8 53745.3 6 g 85 /min 95 % 95 % 98.7 [degF] 114 mm[Hg] 72 mm[Hg] Sharlene Lin [facility] 8 10:48:24 Social History Question Answer Notes LastModified by Organizat ion Details LastModified Time Tobacco Smoking Status Never Smoker Sharlene rocha [facility] 10/11/2018 10:47:07 What Was The [...] SNOMED-CT Code Diagnosis ICD10 Code Diagnosis Note [id number] Khoa Barahona [facility] Internal Medicine [address] [facility],[place] [address] 10/11/2018 10:41:23 10/14/2018 13:35:33 Acute bronchitis 56967801 J20.9 Health Concerns Section Related Observation LastModified by Organization Detai ls LastModified Time None Recorded Concern Status LastModified by Organization Details LastModified Time None Recorded Advance Directives Directive None Recorded Payers Insurance Date Sequence Insurance Name Policy Number Policy Faust Covered Member ID Faust Member ID Guarantor Name 10/21/2019 1 [facility] [id number] Nelda Gonzáles [id number] Nelda Gonzáles Notes Date Note Type Note Provider Name a nd Address Organization Details Recorded Time 10/11/2018 text/html C/O 5 day history dry cough, body aches, headache and chest congestion Denies fever, sweats No CP/SOB/dizziness . No ear pain, mildly scratchy throat Paula Chandra NP, [address] [place], [address], [facility] 10/11/2018 12:10:40 OBGyn Episode No OBEpisode recorded.
== END 2025-05-15 13:08 | disposition home or self-care (01) ==
LOC: HO.US 13:07
PROVIDERS: PCP Internal Medicine; Visit Provider Advanced Practice Midwife
DX: N95.0 Postmenopausal bleeding (principal)
CPT/HCPCS: 76830; 76856

== ENCOUNTER → 2025-05-15 13:08 | Outpatient (BNV) | payer BC, SELFPAY | PROVIDERS: PCP Internal Medicine; Visit Provider Radiology Diagnostic Radiology | DX: N95.0 Postmenopausal bleeding (principal) | CPT/HCPCS: 76830; 76856 ==

== ENCOUNTER 2025-05-31 10:20 | Outpatient (AMB) | payer BC, SELFPAY ==
[2025-05-31 10:24] VITALS: BMI 37.1
--- NOTE | 2025-05-31 10:24 | MHC.OFFVIS ---
Vital Signs 05/31/25 10:24 Height 5 ft 5 in Weight 223 lb BMI 37.1 Intake Visit Reasons: ultrasound results Digital Asset Coordinator Required: No Information Interpreted: clinical only (shade) Senior Asset Manager: Senior Asset Manager Present Accompanied by: Self / Same As Patient Allergies No Known Allergies (No Known Allergies*) Allergy (Unknown, Verified 05/31/25 10:28) Medication List - Last Reconciled 05/31/25 by Yi Ivory LPN albuterol sulfate 90 mcg/actuation 2 puffs inhalation Q6H PRN amitriptyline 100 mg PO BEDTIME 90 days atenolol 50 mg PO BID 90 days atorvastatin 10 mg PO BEDTIME 90 days bisacodyl (Dulcolax (bisacodyl)) 10 mg (2 x 5 mg) PO ONCE 3 days blood pressure test kit-large As directed escitalopram oxalate 20 mg PO DAILY 90 days losartan 25 mg PO DAILY 90 days Is last menstrual period known: Yes Followed by:: yi Ivory lpn HPI Comments Details: Patient is here today for a follow up pelvic ultrasound. History of postmenopausal bleeding x 7d, one episode. Has a scheduled hysteroscopy consult appointment to have EMB done under anesthesia per her request. [facility] Medical History (Updated 05/31/25 @ 10:53 by Alexandra Razo CNM) Fibroid Postmenopausal bleeding Moderate recurrent major depression Obesity Mild recurrent major depression Mixed hyperlipidemia Acne vulgaris Skin lesion Obesity (BMI 35.0-39.9 without comorbidity) Brain lesion Abnormal brain MRI Headache Hyperkalemia Liver cyst Right upper quadrant abdominal pain Insomnia Anxiety Essential hypertension Surgical History No pertinent past surgical history Family History (Updated 04/26/25 @ 12:13 by Alexandra Razo CNM) Father No problems noted. Mother High cholesterol Accelerated essential hypertension Family/Other FH: mental illness Sister Uterine cancer Social History (Updated 04/26/25 @ 12:12 by Alexandra Razo CNM) Household Members Other:: (10yrs) Housing: House Alcohol intake: current Alcohol intake frequency: a few times a week Alcohol type: hard liquor Patient Tobacco Use Status: Never used Tobacco e-Cigarette/Vaping Use: Never Used Second Hand Smoke Exposure: No service: No Current occupational status: employed Current occupational exposures/hazards: No Cognitive needs: No Hearing needs: No Vision needs: Yes Review of Systems Const All systems reviewed & are unremarkable except as noted in HPI and below Endo Reports no additional complaints Physical Exam Vital Signs: BMI result Body Mass Index 37.1 Const General: cooperative, healthy appearing and no acute distress Psych Appearance: well kempt Attitude: cooperative Thought process: Normal thought process present Results Reviewed Results Reviewed: [address] [address] Ultrasound Report Signed Patient: Nelda Gonzáles MR#: [id number] : 1965 Acct:[id number] Age/Sex: 59 / F ADM Date: 05/15/25 Loc: HO.US Attending Dr: Alexandra Razo CNM Ordering Physician: Alexandra Razo CNM Date of Service: 05/15/25 Procedure(s): US pelvic and transvaginal Accession Number(s): [id number] cc: Alexandra Razo CNM; Tasha Harris MD~ EXAMINATION: US PELVIS CLINICAL INFORMATION: N95.0 - Postmenopausal bleeding COMPARISON: November 10, 2019 TECHNIQUE: Ultrasound of the pelvis is performed using both transabdominal and transvaginal transducers along with Doppler. Transvaginal imaging is performed due to inadequate visualization transabdominally. FINDINGS: Uterus: The uterus measures 6.9 x 5.2 x 6.5 cm. It has a lobulated contour. There are hypoechoic heterogeneous regions consistent with uterine leiomyomas. The largest is exophytic along the right lower uterine body and measures 4.1 x 4.1 x 3.5 cm, previously 1.7 x 3.0 x 1.7 cm. There is trace free fluid. The double wall endometrial thickness is 3 mm. Adnexa: Right ovary: Not visualized Left ovary: not visualized US/US pelvic and transvaginal IMPRESSION: Fibroid uterus. Enlarging subserosal leiomyoma in the lower uterine body on the right. 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 IMPRESSION: Fibroid uterus. Enlarging subserosal leiomyoma in the lower uterine body on the right. Counseled re: Leiomyoma: common pelvic neoplasm. Differential diagnosis-may include but not limited to- leiomyosarcoma which is a rare uterine sarcoma 3-7/100,000, difficult to distinguish from fibroids on ultrasound from uterine sarcoma's. Unlikely any single test will have a highly positive predictive value. Hysterectomy is not recommended for sole purpose of excluding malignant neoplasm. Consult for surgical exploration, medical treatment, other treatments, verses expectant management, pros and cons, risks and benefits. Expectant management follow up in 6 months, then yearly for stability. Patient prefers to proceed with expectant management. Referral to MD if indicated for level of care if indicated Report any PMB, pelvic pressure, bloating, or pain. The patient expressed understanding and agreement with the plan of care. All of her questions and concerns were addressed to the best of my ability. (2) Postmenopausal bleeding: Code(s): N95.0 - Postmenopausal bleeding Category: Medical Plan Advised to report any future episode of bleeding including spotting, would require an endometrial biopsy to rule out any abnormal endometrial findings including atypia, precancer or cancer. The patient expressed understanding and agreement with the plan of care. All of her questions and concerns were addressed to the best of my ability. Total time I personally spent on visit and management today: ?30 minutes. Time spent included review of pertinent office notes in the electronic health record; review of laboratory and imaging results; review of personal family medical history; performing physical exam; discussing diagnosis and plan of care with the patient; documenting the encounter in the EMR. Orders: Orders US pelvic and transvaginal 11/12/25 D21.9 - Benign neoplasm of connective and other soft tissue, unspecified Coding Level of Care Code Est Pt Level 3 (37221) Diagnoses Fibroid D21.9 Postmenopausal bleeding N95.0
--- OUTSIDE RECORDS SUMMARY | 2025-05-31 11:03 | XMS_ITS | Data Portability ---
Author Organization [facility], Telehealth Patient Home Address [address] [place] [address] Assessment No assessment recorded. Plan of Treatment Reminders Order Date Submit Date Provider Last Modified By Organization Details Last Modified Time Details Appointments None recorded. Lab None recorded. Referral None recorded. Procedures None recorded. Surgeries None recorded. Imaging None recorded. Medication Orders ProAir HFA 90 mcg/actuat ion aerosol inhaler 2017 018 INTERFACE [employer] #[id number], [address], [place], [phone], 8 10:58:15 amoxicilli n 500 mg capsule 2017 018 [id number], [address], [place], [phone], 9 15:17:10 Patient TargetsNo targets recorded. Patient Instructions Encounter Date Encounter Id Patient Instructions Last Modified By Organization Details Last Modified Time 10/11/2018 [id number] Call if fever, sweats or no improvement marla Not available 10/11/2018 12:10:25 Reason for Referral None Reported. Results Created Date Observation Date Name Description Value Unit Range Abnormal Flag Note LastModifiedBy Organization Detail LastModifiedTime 06/15/2006/14/2019 MAMMO mary bilat eral No observ ation record ed. [email or web address] [facility] (Medical Records) [address] [place], [address], 06/15/2019 16:09:12 Result Notes None recorded. Problems No Known Problems Procedures Surgical History Date Name Laterality Status Provider Name and Address Organization Details Recorded Time 10/04/20 18 Colonoscopy completed Paula Chandra NP, [address] [place], [address], [facility] Internal [facility] 10/25/2018 13:30:55 Imaging Results None recorded. Procedure [...] 97 % Paula Chandra NP, [address] [place], [address], [facility] 10/11/2018 10:53:15 Date Recorded Body weight Heart rate Oxygen saturation Oxygen saturation in Arterial blood by Pulse oximetry Body temperature Systolic And Diastolic Provider Name and Address Organization Details Last Updated DateTime 8 86982.3 6 g 85 /min 95 % 95 % 98.7 [degF] 114/72 mm[Hg] Sharlene Lin [facility] Internal Medicine 8 10:48:24 Social History Question Answer Notes LastModified by Organizat ion Details LastModified Time Tobacco Smoking Status Never Smoker Sharlene rocha [facility] 10/11/2018 10:47:07 What Was [...] SNOMED-CT Code Diagnosis ICD10 Code Diagnosis Note [id number] Khoa Barahona DO [facility] Internal Medicine [address] [facility],[place] [address] 10/11/2018 10:41:23 10/14/2018 13:35:33 Acute bronchitis 43911364 J20.9 Health Concerns Section Related Observation LastModified by Organization Detai ls LastModified Time None Recorded Concern Status LastModified by Organization Details LastModified Time None Recorded Advance Directives Directive None Recorded Payers Insurance Date Sequence Insurance Name Policy Number Policy Faust Covered Member ID Faust Member ID Guarantor Name 10/21/2019 1 [facility] [id number] Nelda Eliecer [id number] Nelda Gonzáles Notes Date Note Type Note Provider Name a nd Address Organization Details Recorded Time 10/11/2018 text/html C/O 5 day history dry cough, body aches, headache and chest congestion Denies fever, sweats No CP/SOB/dizziness . No ear pain, mildly scratchy throat Paula Chandra NP, [address] [place], [address], [facility] 10/11/2018 12:10:40 OBGyn Episode No OBEpisode recorded.
== END 2025-05-31 10:59 | disposition home or self-care (01) ==
LOC: HO.HWS 10:20
PROVIDERS: PCP Internal Medicine; Visit Provider Advanced Practice Midwife
DX: D21.9 Benign neoplasm of connective and other soft tissue, unspecified (principal); N95.0 Postmenopausal bleeding
CPT/HCPCS: 99213

== ENCOUNTER 2025-07-03 10:31 | Outpatient (AMB) | payer BC, SELFPAY ==
--- NOTE | 2025-07-03 10:40 | MHC.PC.OV ---
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 Director Of Finance Required: No Accompanied by: Self / Same As Patient Allergies No Known Allergies (No Known Allergies*) Allergy (Unknown, Verified 07/03/25 10:59) Medication List - Last Reconciled 07/03/25 by Tasha Varghese MD albuterol sulfate 90 mcg/actuation 2 puffs inhalation Q6H PRN amitriptyline 100 mg PO BEDTIME 90 days amitriptyline 75 mg PO QPM atenolol 50 mg PO BID 90 days atorvastatin 10 mg PO BEDTIME 90 days blood pressure test kit-large As directed hydroxyzine HCl mg PO losartan 25 mg PO DAILY 90 days naltrexone mg PO paroxetine HCl 20 mg PO BEDTIME Tobacco use date assessed: 01/02/25 Dental Screening Dental Screen Date: 01/02/25 HPI HPI Comments History of Present Illness Details The patient is a 59-year-old female presenting with hypertension, major depressive disorder, and anxiety disorder. Hypertension has been well-controlled, with stable blood pressure readings. She is currently on paroxetine for depression and amitriptyline for insomnia. The patient reports periods of confusion and involuntary movements of the fingers. She has a history of a brain lesion identified in 2021, for which an MRI was previously conducted. The patient is obese with a BMI of 37.3 and has been advised to engage in diet and exercise. She has ceased alcohol consumption due to naltrexone use. [facility] Medical History (Updated 07/03/25 @ 11:29 by Tasha Varghese MD) Fibroid Postmenopausal bleeding Moderate recurrent major depression Obesity Mild recurrent major depression Mixed hyperlipidemia Acne vulgaris Skin lesion Obesity (BMI 35.0-39.9 without comorbidity) Brain lesion Abnormal brain MRI Headache Hyperkalemia Liver cyst Right upper quadrant abdominal pain Insomnia Anxiety Essential hypertension Surgical History No pertinent past surgical history Family History Father No problems noted. Mother High cholesterol Accelerated essential hypertension Family/Other FH: mental illness Sister Uterine cancer Social History (Updated 07/03/25 @ 11:05 by Tasha Varghese MD) Household Members Other:: (10yrs) Housing: House Alcohol intake: former Patient Tobacco Use Status: Never used Tobacco e-Cigarette/Vaping Use: Never Used Second Hand Smoke Exposure: No service: No Current occupational status: employed Current occupational exposures/hazards: No Cognitive needs: No Hearing needs: No Vision needs: Yes Questionnaire PHQ-9 Over the last 2 weeks, how often have you been bothered by any of the following problems? 2. Feeling down, depressed, or hopeless: nearly every day Source: Developed by Drs. Erik Kruse, Marisol Lyons, Malick Bravo and colleagues, with an educational luis from [employer]. Thrive Questionnaire Date Thrive assessed: 01/02/25 I am a: Patient What is your living situation today?: I have a steady place to live Within the past 12 months, did the food you bought not last and you didn't have the money to get more?: Never true Within the past 12 months, did you worry whether your food would run out before you got money to buy more?: Never true Do you have trouble paying for medicines?: No Do you have trouble getting transportation to medical appointments?: No Do you have trouble paying your heating and electricity bill?: Yes Do you have trouble taking care of your child, family member or friend?: No Do you have trouble with day-to-day activities such as bathing, preparing meals, shopping, managing finances, etc.?: No Are you currently unemployed and looking for a job?: No Are you interested in more education?: No Please select the resources that you would like help with: None Currently or been in a relationship where the following occur: No concerns reported THRIVE Score: 1 RAUDEL-7 AMB Questionnaire RAUDEL-7 Date RAUDEL - 7 assessed: 03/22/25 Source: Developed by Drs. Erik Krsue, Marisol Lyons, Malick Bravo and colleagues, with an educational luis from [employer]. Review of Systems Const All systems reviewed & are unremarkable except as noted in HPI and below Card Denies chest pain at rest, Denies chest pain with activity, Denies edema, Denies irregular heart rhythm, Denies claudication, Denies dyspnea, Denies dyspnea on exertion, Denies orthopnea, Denies paroxysmal nocturnal dyspnea and Denies slow heart rate Resp Denies cough, Denies dyspnea and Denies dyspnea on exertion GI Denies abdominal pain, Denies change in bowel habits, Denies excessive flatus, Denies nausea and Denies vomiting Denies urinary incontinence, Denies urinary hesitancy and Denies urinary urgency Musc Denies abnormal gait, Denies atrophy, Denies deformity and Denies limited range of motion Skin/Breast Denies bleeding lesions, Denies changing lesions and Denies rash Neuro Denies abnormal gait, Denies behavioral changes and Denies lack of coordination Psych Denies behavioral changes Physical exam (Primary Care) Vital Signs: Last Vital Signs BP 110/80 07/03/25 10:44 BMI result Body Mass Index 37.3 BMI Assessment/Plan discussion: High BMI High, discussed plan: lifestyle, weight reduction, dietary and physical activity Tobacco/Smoking Status: Tobacco use Status Tobacco use date assessed 01/02/25 07/03/25 10:49 Patient Tobacco Use Status Never used Tobacco 07/03/25 10:49 Tobacco use type 05/22/25 10:32 e-Cigarette/Vaping Use Never Used 07/03/25 10:49 Thrive Assessment: Date of Thrive Assessment Date Thrive assessed 01/02/25 07/03/25 10:49 Currently or been in a relationship where the following occur: No concerns reported Resp Effort & Inspection: normal respiratory effort Auscultation: clear to auscultation bilaterally Cardio Jugular venous distension: no JVD Rate: regular rate Rhythm: regular rhythm Heart sounds: S1 normal heart sound present and S2 normal heart sound present Neuro General: no focal motor deficits Extrem General: Yes full ROM Coding Level of Care Code Est Pt Level 4 (65916) Complex EM visit Add On G2211 Diagnoses Moderate recurrent major depression F33.1 Anxiety F41.9 Essential hypertension I10 Mixed hyperlipidemia E78.2 Obesity (BMI 35.0-39.9 without comorbidity) E66.9 Confusion R41.0 Alcohol use disorder F10.90 Time Spent (min) 24 Assessment & Plan Assessment & Plan (1) Moderate recurrent major depression: Code(s): F33.1 - Major depressive disorder, recurrent, moderate Category: Medical (2) Anxiety: Code(s): F41.9 - Anxiety disorder, unspecified Category: Medical (3) Essential hypertension: Code(s): I10 - Essential (primary) hypertension Category: Medical (4) Mixed hyperlipidemia: Code(s): E78.2 - Mixed hyperlipidemia Category: Medical (5) Obesity (BMI 35.0-39.9 without comorbidity): Code(s): E66.9 - Obesity, unspecified Category: Medical (6) Confusion: Code(s): R41.0 - Disorientation, unspecified Category: Medical (7) Alcohol use disorder: Code(s): F10.90 - Alcohol use, unspecified, uncomplicated Category: Medical Plan An EKG will be ordered to rule out prolonged QT interval secondary to amitriptyline use. The patient will be referred to neurology for further evaluation of the reported periods of confusion and involuntary movements. A follow-up MRI of the brain will be conducted to assess the status of the previous brain lesion. Preventative care measures include ordering a mammogram, as the last one was conducted in 2022. The patient has been advised to continue with diet and exercise to manage obesity. Patient was informed and verbally consented to the use of an ambient scribe for clinic note documentation during this visit. Orders: Orders Vitamin B12 and Folate Today E53.8 - Deficiency of other specified B group vitamins, R41.0 - Disorientation, unspecified Complete Blood Count Auto Diff Today R41.0 - Disorientation, unspecified ECG 12 lead EKG Today Z91.89 - Other specified personal risk factors, not elsewhere classified MR head/brain wo con Today R41.0 - Disorientation, unspecified Lipid Panel Today E78.5 - Hyperlipidemia, unspecified Vitamin D 25-OH Total Today E55.9 - Vitamin D deficiency, unspecified Thyroid Stimulating Hormone Today R41.0 - Disorientation, unspecified Comprehensive [place]. Panel Fast Today R41.0 - Disorientation, unspecified Referrals Neurology Referral R25.9 - Unspecified abnormal involuntary movements, R41.0 - Disorientation, unspecified
[2025-07-03 10:44] VITALS: BP 110/80; BMI 37.3
== END 2025-07-03 11:15 | disposition home or self-care (01) ==
LOC: HO.HMCH 10:32
PROVIDERS: PCP Internal Medicine; Visit Provider Internal Medicine
DX: I10 Essential (primary) hypertension (principal); F33.1 Major depressive disorder, recurrent, moderate; E78.2 Mixed hyperlipidemia; F41.9 Anxiety disorder, unspecified; E66.9 Obesity, unspecified; R41.0 Disorientation, unspecified; F10.90 Alcohol use, unspecified, uncomplicated

== ENCOUNTER 2025-07-09 07:12 | Outpatient (AMB) | payer BC, SELFPAY ==
[2025-07-09 07:24] VITALS: BP 124/86; PULSE 70; O2SAT 98; BMI 37.5
--- NOTE | 2025-07-09 07:24 | A.OFFVIS_ITS ---
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 Dizzy spells(room spinning/leg giving out)getting worse. Her fingers/tongue twitch. Accompanied by: Self / Same As Patient Allergies No Known Allergies (No Known Allergies*) Allergy (Unknown, Verified 07/09/25 07:26) HPI Comments Details: 59y/o Right handed female comes for evaluation of dizziness, forgetfullness and some abnormal movements. she started noticing difficulty paying attention and recalling for about 1 year and is worse in the past 2mths. she has trouble remembering conversations, has short term recall issues. she misplaces things at home and searching. she has no trouble with to orientation to place or person , no trouble with directions, driving or names. she denies any difficulty with daily activities. she has depression,anxiety, PTSD poorly controlled. she has h/o heavy alcohol use- drank 3-4 drinks everyday . she stopped 1 mths ago. she has suicidal thoughts - sees her therapist regularly and has a prescriber. she has poor sleep-snores loudly , wakes up frequently and has daytime fatigue. she is on amitriptyilne. she reports episodes of dizziness - things moving around her head associated with nausea - has had episodes for past 6-12 mths.she has 5-7 episodes a week lasting few minutes. she is not sure if there is a positional component.she denies tinnitus , or hearing problems. she reports tongue and lip twitching on and off for 6 mths no exposure to antipsyhcotics or lithium she also has an abnormal MRI done in 2021 which showed a calcified lesion. [facility] Medical History (Updated 07/09/25 @ 08:08 by Lauryn Colon MD) Hypersomnia Snoring Cognitive change Fibroid Postmenopausal bleeding Moderate recurrent major depression Obesity Mild recurrent major depression Mixed hyperlipidemia Acne vulgaris Skin lesion Obesity (BMI 35.0-39.9 without comorbidity) Brain lesion Abnormal brain MRI Headache Hyperkalemia Liver cyst Right upper quadrant abdominal pain Insomnia Anxiety Essential hypertension Surgical History No pertinent past surgical history Family History Father No problems noted. Mother High cholesterol Accelerated essential hypertension Family/Other FH: mental illness Sister Uterine cancer Social History Household Members Other:: (10yrs) Housing: House Alcohol intake: former Patient Tobacco Use Status: Never used Tobacco e-Cigarette/Vaping Use: Never Used Second Hand Smoke Exposure: No service: No Current occupational status: employed Current occupational exposures/hazards: No Cognitive needs: No Hearing needs: No Vision needs: Yes Physical Exam Vital Signs: Last Vital Signs Pulse 70 07/09/25 07:24 BP 124/86 07/09/25 07:24 Pulse Ox 98 07/09/25 07:24 Oxygen Delivery Method Room Air 07/09/25 07:24 BMI result Body Mass Index 37.5 Const General: cooperative, healthy appearing, comfortable, no acute distress and anxious Nutritional Appearance: obese Orientation/consciousness: patient oriented x3 Eyes Pupils: Equal, round and reactive pupils present Neuro General: patient oriented x3, gait normal, tone normal, moves all extremities and no focal motor deficits Cranial nerves: Yes Facial sensation intact/muscles of mastication intact, Yes Equal, round and reactive pupils present, Yes Bilaterally intact EOM present, Yes Nystagmus not present, Yes Normal facial strength present, Yes Midline tongue present, Yes Symmetric palate elevation present, Yes Ability to bilaterally rotate head present and Yes Ability to bilaterally elevate shoulders present Gait exam (Neuro): Normal gait present Motor exam (neuro): 5/5 motor strength present throughout and Normal motor muscle tone present throughout Deep tendon reflexes (DTR's): Right triceps reflex intensity grade: 2+, Left triceps reflex intensity grade: 2+, Rt Biceps (C5, C6): 2+, Left biceps reflex intensity grade: 2+, Right brachioradialis reflex intensity grade: 2+, Left brachioradialis reflex intensity grade: 2+, Right patellar reflex intensity gra de: 2+ and Left patellar reflex intensity grade: 2+ Coordination: [id number] test normal Psych Appearance: grossly normal Speech and movement: Normal speech and movement present Orientation What is the (year) (season) (date) (day) (month)?: year, season, date, day and month Where are we (state) (county) (town or city) (hospital) (floor)?: state, town or city, hospital/clinic and floor Registration Name of 3 unrelated objects clearly and slowly, then ask patient to repeat all 3 of them. (1st repeat determines score. Make sure they can repeat all three): object 1, object 2 and object 3 Attention & Calculation (CHOOSE ONE) Spell WORLD backwards (DLROW): 5 letters Recall Ask patient to repeat the 3 items from question #3.: object 1, object 2 and object 3 Language Show patient a wristwatch & ask what it is. Repeat for pencil.: watch and pencil Ask the patient to repeat the phrase 'No ifs, ands, or buts' after you.: correct Ask the patient to 'take a piece of paper with their right hand' 'fold paper in half' 'place paper on floor': take paper in right hand, fold paper in half and place paper on floor Print the sentence 'CLOSE YOUR EYES' on a piece. If patient actually closes eyes then score.: followed written direction Give patient a blank piece of paper & ask to write a sentence. Score if it contains a noun & verb.: sentence contains subject and verb Ask patient to copy figure of intersecting pentagons exactly. Score if all 10 angles & 2 intersects are included.: all 10 angles present & 2 are intersected Score Score: 29 Assessment & Plan Assessment & Plan (1) Cognitive change: Comment: multifactorial - mood, alcohol use , medications etc . MMSE 29/30 Code(s): R41.89 - Other symptoms and signs involving cognitive functions and awareness Category: Medical (2) Involuntary movements: Code(s): R25.9 - Unspecified abnormal involuntary movements Category: Medical (3) Brain lesion: Code(s): G93.9 - Disorder of brain, unspecified Category: Medical (4) Insomnia: Code(s): G47.00 - Insomnia, unspecified Category: Medical (5) Snoring: Code(s): R06.83 - Snoring Category: Medical (6) Hypersomnia: Code(s): G47.10 - Hypersomnia, unspecified Category: Medical Plan No involuntary movements noticed in exam today - it is probably related to her anxiety I will evaluate her with MRI brain EEG Labs- Vit B 12 TSH ESR CBC CMP SLeep study to r/o sleep apnea. Orders: Orders EEG electroencephalogram Today R25.9 - Unspecified abnormal involuntary movements, R41.0 - Disorientation, unspecified, R41.89 - Other symptoms and signs involving cognitive functions and awareness RT home sleep study Today G47.10 - Hypersomnia, unspecified, R06.83 - Snoring Coding Level of Care Code New Pt Level 4 (49566) Complex EM visit Add On G2211 Diagnoses Cognitive change R41.89 Involuntary movements R25.9 Brain lesion G93.9 Insomnia G47.00 Snoring R06.83 Hypersomnia G47.10
== END 2025-07-09 08:21 | disposition home or self-care (01) ==
LOC: HO.HSMS 07:13
PROVIDERS: PCP Internal Medicine; Visit Provider Psychiatry & Neurology Neurology
DX: R41.89 Other symptoms and signs involving cognitive functions and awareness (principal); R25.9 Unspecified abnormal involuntary movements; G93.9 Disorder of brain, unspecified; G47.00 Insomnia, unspecified; R06.83 Snoring; G47.10 Hypersomnia, unspecified
CPT/HCPCS: 99204

== ENCOUNTER 2025-07-12 08:16 | Outpatient (REF) | payer BC, SELFPAY ==
[2025-07-12 11:01] LABS: Hematocrit 40.1 % (37.0-47.0); Hemoglobin 13.5 g/dl (12.0-16.0); Imm Gran Abs Auto 0.01 X10*3/uL (0.00-0.03); Imm Gran Pct Auto 0.1 % (0.0-0.4); MANUAL DIFF FLAG SCAN; Mean Corpuscular HGB Conc 33.7 g/dl (31.0-35.0); Mean Corpuscular Hemoglobin 29.2 pg (27.0-33.0); Mean Corpuscular Volume 86.6 fL (80.0-98.0); NRBC Abs Auto 0.000 X10*3/uL (0.0-0.012); NRBC Pct Auto 0.0 /100WBC (0.0-0.2); Platelet Count 264 X10*3/uL (160-400); Red Blood Count 4.63 X10*6/uL (4.20-5.50); SCAN SMEAR FLAG 1; White Blood Count 9.2 X10*3/uL (4.8-10.8)
[2025-07-12 11:02] LABS: Lymphocytes Absolute Auto 7.2 X10*3/uL (1.2-4.9)
[2025-07-12 11:25] LABS: Alanine Aminotransferase 16 U/L (0-31); Albumin Level 3.8 g/dL (3.5-5.0); Alkaline Phosphatase 103 U/L (39-117); Anion Gap 10 (12-20); Aspartate Amino Transferase 31 U/L (5-31); Blood Urea Nitrogen 26 mg/dL (9-16); Calcium 8.7 mg/dL (8.4-10.2); Carbon Dioxide 28 mmol/L (22-29); Chloride 106 mmol/L (96-108); Cholesterol 206 mg/dL (<200); Estimated Glomerular Filt Rate 49; HDL Cholesterol 36 mg/dL (>40); Potassium 4.5 mmol/L (3.3-5.1); Sodium 139 mmol/L (135-145); Total Protein 6.2 g/dL (6.5-8.0); Triglycerides 359 mg/dL (<150)
[2025-07-12 11:43] LABS: Thyroid Stimulating Hormone 2.85 uIU/mL (0.32-4.0)
[2025-07-12 11:49] LABS: Folate 9.5 ng/mL (> or = 4.0); Vitamin B12 442 pg/mL (200-900)
== END 2025-07-12 08:17 | disposition home or self-care (01) ==
LOC: HO.10HDL 08:16
PROVIDERS: Visit Provider Internal Medicine
DX: E55.9 Vitamin D deficiency, unspecified (principal); R41.0 Disorientation, unspecified; E53.8 Deficiency of other specified B group vitamins; E78.5 Hyperlipidemia, unspecified
CPT/HCPCS: 36415; 80053; 80061; 82306; 82607; 82746; 84443; 85025

== ENCOUNTER → 2025-08-01 07:08 | Outpatient (BNV) | payer BC, SELFPAY | PROVIDERS: PCP Internal Medicine; Visit Provider Radiology Diagnostic Radiology | DX: R41.0 Disorientation, unspecified (principal) | CPT/HCPCS: 70551 ==

== ENCOUNTER 2025-08-01 07:11 | Outpatient (REF) | payer BC, SELFPAY ==
--- NOTE | ~2025-08-01 | MR_ITS ---
EXAMINATION: MR BRAIN WITHOUT CONTRAST CLINICAL INFORMATION: Disorientation COMPARISON: MRI brain on 05/18/2022 TECHNIQUE: MRI of the brain was obtained using routine sequences without contrast. FINDINGS: There is no restricted diffusion, T2 edema or mass effect to suspect any acute or subacute ischemic changes or edema. No magnetic susceptibility artifact seen either to suspect acute hemorrhagic products. There is normal symmetry of bilateral cerebral cortical sulci. The lateral ventricles are symmetrical in size and configuration without enlargement. Punctate T2 FLAIR signal changes are seen in the deep white matter of right parietal lobe adjacent to the lateral ventricle on coronal images 10/11, nonspecific. There is a calcified lesion along the right frontal vertex which is stable likely focal calcification or hemangioma. On the last exam there is no enhancement seen in this region. There is no edema seen either normal flow-void signal is seen in major cerebral vasculature. MR/MR head/brain wo con IMPRESSION: No acute intracranial abnormality seen. Nonspecific T2 signal changes in the deep white of right parietal lobe adjacent to the lateral ventricle are nonspecific. Likely stable. Extra-axial calcified lesion right frontal region likely a calcified meningioma plain calcification, stable. There is no edema. No enhancement was seen on the last MRI brain exam Electronically signed by: Antwan Patrick MD 08/01/2025 08:35 AM EDT
--- NOTE | 2025-08-01 08:01 | ECG_ITS ---
Test Reason : z91.89 Blood Pressure : */* mmHG Vent. Rate : 69 BPM Atrial Rate : 69 BPM P-R Int : 194 ms QRS Dur : 90 ms QT Int : 410 ms P-R-T Axes : 49 43 27 degrees QTcB Int : 439 ms Normal sinus rhythm Normal ECG When compared with ECG of 16-Jul-2024 06:51, No significant change was found Referred By: Tasha Varghese Electronically Signed By: Orestes Pickering
== END 2025-08-01 07:12 | disposition home or self-care (01) ==
LOC: HO.MRI 07:11
PROVIDERS: PCP Internal Medicine; Visit Provider Internal Medicine
DX: R41.0 Disorientation, unspecified (principal); Z91.89 Other specified personal risk factors, not elsewhere classified
CPT/HCPCS: 70551; 93005

== ENCOUNTER → 2025-08-01 08:01 | Outpatient (BNV) | payer BC, SELFPAY | PROVIDERS: PCP Internal Medicine; Visit Provider Internal Medicine Cardiovascular Disease | DX: Z91.89 Other specified personal risk factors, not elsewhere classified (principal) | CPT/HCPCS: 93010 ==

== ENCOUNTER 2025-08-16 08:07 | Outpatient (REF) | payer BC, SELFPAY ==
--- NOTE | 2025-08-16 08:13 | EEG_ITS ---
This is a 16 channel EEG with an EKG lead. Patient is awake during the tracing. Background EEG rhythm is about 10 hertz 5-50 microvolt posteriorly and lower amplitude fast anteriorly. Photic stimulation does not produce any significant driving. Hyperventilation is not performed. Cardiac lead does not reveal any significant abnormality. No definite sharp wave spikes or paroxysmal tendency noted. Impression: Unremarkable EEG MTDD
== END 2025-08-16 08:08 | disposition home or self-care (01) ==
LOC: HO.NEURO 08:07
PROVIDERS: Visit Provider Psychiatry & Neurology Neurology
DX: R41.89 Other symptoms and signs involving cognitive functions and awareness (principal); R41.0 Disorientation, unspecified; R25.9 Unspecified abnormal involuntary movements
CPT/HCPCS: 95816

== ENCOUNTER → 2025-08-16 08:13 | Outpatient (BNV) | payer BC, SELFPAY | PROVIDERS: Visit Provider Psychiatry & Neurology Neurology | DX: R41.89 Other symptoms and signs involving cognitive functions and awareness (principal) | CPT/HCPCS: 95816 ==

== ENCOUNTER → 2025-09-25 14:33 | Outpatient (REF) | payer OTHER, SELFPAY ==
--- OUTSIDE RECORDS SUMMARY | 2025-09-25 18:58 | XMS_ITS | Data Portability ---
Author Organization [facility] Telehealth Patient Home Address [address] [place] [address] Assessment No assessment recorded. Plan of Treatment Reminders Order Date Submit Date Provider Last Modified By Organization Details Last Modified Time Details Appointments None recorded. Lab None recorded. Referral None recorded. Procedures None recorded. Surgeries None recorded. Imaging None recorded. Medication Orders ProAir HFA 90 mcg/actuat ion aerosol inhaler 2017 018 INTERFACE [facility] #[id number], [address] [place], [place], [id number], 8 10:58:15 amoxicilli n 500 mg capsule 2017 018 [id number], [address], [place], [phone], 9 15:17:10 Patient TargetsNo targets recorded. Patient Instructions Encounter Date Encounter Id Patient Instructions Last Modified By Organization Details Last Modified Time 10/11/2018 [id number] Call if fever, sweats or no improvement marla Not available 10/11/2018 12:10:25 Reason for Referral None Reported. Results Created Date Observation Date Name Description Value Unit Range Abnormal Flag Note LastModifiedBy Organization Detail LastModifiedTime 06/15/2006/14/2019 MAMMO mary bilat eral No observ ation record ed. [email or web address] [facility] (Medical Records) [address] [place], [address], 06/15/2019 16:09:12 Result Notes None recorded. Problems No Known Problems Procedures Surgical History Date Name Laterality Status Provider Name and Address Organization Details Recorded Time 10/04/20 18 Colonoscopy completed Paula Chandra NP, [address] [place], [address], [facility] 10/25/2018 13:30:55 Imaging Results None recorded. Procedure [...] 97 % Paula Chandra NP, [address] [place], [address], [facility] 10/11/2018 10:53:15 Date Recorded Body weight Heart rate Oxygen saturation Oxygen saturation in Arterial blood by Pulse oximetry Body temperature Systolic And Diastolic Provider Name and Address Organization Details Last Updated DateTime 8 67190.3 6 g 85 /min 95 % 95 % 98.7 [degF] 114/72 mm[Hg] Sharlene Lin [facility] 8 10:48:24 Social History Question Answer Notes LastModified by Organizat ion Details LastModified Time Tobacco Smoking Status Never Smoker Sharlene rocha [facility] 10/11/2018 10:47:07 What [...] Diagnosis SNOMED-CT Code Diagnosis ICD10 Code Diagnosis IMO Codes Diagnosis Note [id number] Khoa JamesDelisa Barahona DO [facility] [address] [facility] [place] [address] 10/11/2018 10:41:23 10/14/2018 13:35:33 Acute bronchitis [id number] J20.9 Health Concerns Section Related Observation LastModified by Organization Detai ls LastModified Time None Recorded Concern Status LastModified by Organization Details LastModified Time None Recorded Advance Directives Directive None Recorded Payers Insurance Date Sequence Insurance Name Policy Number Policy Faust Covered Member ID Faust Member ID Guarantor Name 10/21/2019 1 [facility] [id number] Nelda Gonzáles [id number] Nelda Gonzáles Notes Date Note Type Note Provider Name a nd Address Organization Details Recorded Time 10/11/2018 text/html ROS as noted in the HPI C/O 5 day history dry cough, body aches, headache and chest congestion Denies fever, sweats No CP/SOB/dizziness . No ear pain, mildly scratchy throat Paula Chandra NP, [address] [facility], [place], [address], [facility] 10/11/2018 12:10:40 OBGyn Episode No OBEpisode recorded.
--- OUTSIDE RECORDS SUMMARY | 2025-09-25 18:58 | XMS_ITS | Clinical Summary ---
Author Organization [address] [facility] Address [address] [place] [address] Phone Care Team Providers Care Habilitative Interventionist Name Role Phone Tasha Varghese MD Primary Care Provider [phone] Allergies No known active allergies Medications amitriptyline (ELAVIL) 100 mg tablet Take 1 tablet (100 mg total) by mouth. at bedtime. 07/15/2025 Active atenoloL (TENORMIN) 50 mg tablet Take 1 tablet (50 mg total) by mouth 2 (two) times a day. 06/21/2025 Active atorvastatin (LIPITOR) 10 mg tablet Take 1 tablet (10 mg total) by mouth. at bedtime. 03/22/2025 Active hydrOXYzine HCL (ATARAX) 25 mg tablet TAKE 2 TABLETS BY MOUTH EVERY NIGHT AT BEDTIME AND 1/2 TABLET AT 4PM DAILY AND MAY TAKE 1/2 TABLET BY MOUTH NEEDED FOR ANXIETY /INSOMNIA 05/10/2025 Active losartan (COZAAR) 25 mg tablet Take 1 tablet (25 mg total) by mouth 1 (one) time each day. 01/13/2025 Active naltrexone (DEPADE) 50 mg tablet Take 1 tablet (50 mg total) by mouth 1 (one) time each day. 07/31/2025 Active PARoxetine (PAXIL) 20 mg tablet Take 1 tablet (20 mg total) by mouth. at bedtime 07/31/2025 Active Active Problems Problem Noted Date Diagnosed Date Cerebral meningioma (CMS/HCC V24, CMS/HCC V28) 1 Assessment & Plan (09/07/2025 3:28 PM EDT): I reviewed the MRI findings in detail with Ms. Gonzáles I believe the right frontal lesion is a calcified meningioma. It is just over 1 cm and does not have any surrounding vasogenic edema. I doubt if this is causing her discomfort/pressure around the eye and it should not contribute to her dizzy spells. Has this calcified lesion will not grow any further, and did not think this needs to be followed with serial imaging. She is welcome to contact us if she has other concerns. Encounters Date Type Department Care Team Description 09/07/2025 2:45 PM EDT Consult Neurosurgery [facility] [address] [place] [address] Yelitza Childs MD Cerebral meningioma (CMS/HCC V24, CMS/HCC V28) (Primary Dx) from Last 3 Months Medical History Medical History Date Comments Depression Hyperlipidemia Hypertension Anxiety Hyperkalemia Social History Tobacco Use Types Packs/Day Years Used Date Smoking Tobacco: Never Smokeless Tobacco: Never Tobacco Cessation:Counseling Given: Not Answered Comments Unknown Sex and Gender Information Value Date Recorded Sex Assigned at Not on file Legal Sex Female 2:20 PM EDT Gender Identity Not on file Sexual Orientation Not on file Obstetrics History Last Filed Vital Signs Vital Sign Reading Time Taken Comments Blood Pressure - - Pulse - - Temperature - - Respiratory Rate - - Oxygen Saturation - - Inhaled Oxygen Concentration - - Weight 102 kg (224 lb) 09/07/2025 2:53 PM EDT Height 165.1 cm (5' 5 ) 09/07/2025 2:53 PM EDT Body Mass Index 37.28 09/07/2025 2:53 PM EDT Plan of Treatment Health Maintenance Due Date Last Done Comments Breast Cancer Screening 1966 Colorectal Cancer Screening: Colonoscopy 1966 Hepatitis B Vaccines (1 of 3 - 19+ 3-dose series) 1985 Cervical Cancer Screening: P ap Smear 1987 Pneumococcal Vaccine: 50+ Years (1 of 1 - PCV) 2016 Zoster Vaccines (1 of 2) 2016 Depression Screening 11/29/2024 COVID-19 Vaccine (3 - 2024-2 6 season) 2025 03/22/2021, 03/01/2021 Influenza Vaccine (#1) 2025 HIV Screening 08/06/2025 Hepatitis C Screening 08/06/2025 Social Influencers of Health Screening 08/06/2025 DTaP,Tdap,and Td Vaccines (3 - Td or Tdap) 04/26/2031 04/26/2021, 11/07/2012 RSV Immunization Adult Patients (1 - 1-dose 75+ series) 2041 HIB Vaccines Aged Out No longer eligi ble based on patient's age to complete this topic HPV Vaccines Aged Out No longer eligi ble based on patient's age to complete this topic Hepatitis A Vaccines Aged Out No long er eligible based on patient's age to complete this topic IPV Vaccines Aged Out No longer eligi ble based on patient's age to complete this topic MMR Vaccines Aged Out No longer eligi ble based on patient's age to complete this topic Meningococcal ACWY Vaccine Aged Out N o longer eligible based on patient's age to complete this topic Meningococcal B Vaccine Aged Out No l onger eligible based on patient's age to complete this topic RSV Immunization Patients Under 20 months Aged Out No longer eligible b ased on patient's age to complete this topic Varicella Vaccines Aged Out No longer eligible based on patient's age to complete this topic Procedures Procedure Name Priority Date/Time Associated Diagnosis Comments EXTERNAL MRI REPORT Routine 08/01/2025 9:35 AM EDT from Last 3 Months Results * External MRI Report (08/01/2025 9:35 AM EDT) Anatomical Region Laterality Modality Magnetic Resonan ce Historical Provider MD [facility] MRI PROCEDURES Final Result from Last 3 Months Insurance [facility] [employer] Care Teams Habilitative Interventionist Relationship Specialty Start Date End Date Tasha Varghese MD [address] [facility] , [address] [facility] Physician Associ D/B/A: Maric[facility] Dong [facility] ADAILD Alcantara PCP - General Internal Medicine 08/06/25
== END ==
LOC: HO.SL 14:33
PROVIDERS: Visit Provider Psychiatry & Neurology Neurology
DX: G47.10 Hypersomnia, unspecified (principal); R06.83 Snoring
CPT/HCPCS: 95806

== ENCOUNTER → 2025-09-25 14:44 | Outpatient (BNV) | payer OTHER, SELFPAY | PROVIDERS: Visit Provider Psychiatry & Neurology Neurology | DX: G47.10 Hypersomnia, unspecified (principal) | CPT/HCPCS: 95806 ==